=== PATIENT | male | born 1950 | race Caucasian/White ===

== ENCOUNTER → 2016-11-30 | Outpatient (CLI) | payer BC ==
--- NOTE | 2016-11-30 13:17 | US ---
EXAMINATION TYPE: US groin extremity RT DATE OF EXAM: 11/30/2016 1:00 PM COMPARISON: NONE CLINICAL HISTORY: K40.9 Uni lateral Hernia. Pt states rt groin/lower rt pelvic Scanned over the pt's area of concern, no abnormality noted by ultrasound. IMPRESSION: 1. No sonographic abnormality seen.
== END | disposition home or self-care (01) ==
LOC: RADUSWWP 12:47
PROVIDERS: ATTEND Family Medicine
DX: K40.90 Unilateral inguinal hernia, without obstruction or gangrene, not specified as recurrent (principal)

== ENCOUNTER → 2017-09-27 | Outpatient (CLI) | payer MEDICARE ==
--- NOTE | 2017-09-27 12:01 | US ---
EXAMINATION TYPE: US duplex aorta DATE OF EXAM: 09/27/2017 COMPARISON: NONE CLINICAL HISTORY: Z13.9 screening for disorder. no symptoms EXAM MEASUREMENTS: Abdominal Aorta: Proximal: 2.8 x 2.9cm Mid: 1.9 x 1.9cm Distal: 1.7 x 1.6cm Bifurcation: not seen due to gas Large body habitus and bowel gas limits exam. Atherosclerotic changes seen. IMPRESSION: Suboptimal study without greater than 3 cm aneurysm of abdominal aorta identified.
== END | disposition home or self-care (01) ==
LOC: RADUSWWP 09:03
PROVIDERS: ATTEND Family Medicine
DX: Z13.6 Encounter for screening for cardiovascular disorders (principal)
CPT/HCPCS: 93979

== ENCOUNTER 2018-04-22 13:26 | Observation (INO) | payer MEDICARE ==
[2018-04-22] MEDS ORDERED: methylPREDNISolone SOD SUCCI 125 MG/2 ML VIAL IV STA (14:10)
[2018-04-22] MEDS ORDERED: IPRATROPIUM-ALBUTEROL 3 ML NEB INHALATION STA (14:10)
[2018-04-22 14:17] LABS: Basophils % (A) 0 %; Eosinophils # (A) 0.4 k/uL (0-0.7); Eosinophils % (A) 5 %; HCT 45.6 % (39.0-53.0); HGB 14.9 gm/dL (13.0-17.5); Lymphocytes # (A) 1.5 k/uL (1.0-4.8); Lymphocytes % (A) 20 %; MCH 31.4 pg (25.0-35.0); MCHC 32.7 g/dL (31.0-37.0); MCV 96.2 fL (80.0-100.0); Mean Platelet Volume 6.9; Monocytes # (A) 0.4 k/uL (0-1.0); Monocytes % (A) 6 %; Neutrophils # (A) 5.3 k/uL (1.3-7.7); Neutrophils % (A) 69 %; Platelet Count 231 k/uL (150-450); RBC 4.74 m/uL (4.30-5.90); RDW 14.2 % (11.5-15.5); WBC 7.7 k/uL (3.8-10.6)
--- NOTE | 2018-04-22 14:27 | XR ---
EXAMINATION TYPE: XR chest 2V DATE OF EXAM: 04/22/2018 COMPARISON: NONE HISTORY: Difficulty breathing TECHNIQUE: Frontal and lateral views of the chest are obtained on 3 images. FINDINGS: There is no focal air space opacity, pleural effusion, or pneumothorax seen. The cardiac silhouette size is within normal limits. The osseous structures are intact. There are overlying car diac leads. Prominent lung volumes suggest COPD. Calcified aorticopulmonary window node is present co mpatible with old granulomatous disease. IMPRESSION: No acute cardiopulmonary process.
[2018-04-22 14:30] LABS: Partial Thromboplastin Time 24.3 sec (22.0-30.0); Prothrombin Time 10.2 sec (9.0-12.0)
--- NOTE | 2018-04-22 14:37 | ED ---
SOB HPI - General Chief Complaint: Shortness of Breath Stated Complaint: SOB Time Seen by Provider: 04/22/18 13:47 Source: patient, RN notes reviewed Mode of arrival: ambulatory Limitations: no limitations - History of Present Illness Initial Comments: 67-year-old male presents emergency Department from PCPs office chief complaint shortness of breath. Patient states that he quit smoking on Saturday and has had increased shortness of breath, cough. States cough is productive at time but mostly dry. He does have a history of COPD. Patient states he is tried treatments at home with no relief. Patient denies any chest pain, headache or dizziness. Patient has no fever no chills. - Related Data Home Medications Medication Instructions Recorded Confirmed Albuterol Inhaler [Ventolin Hfa 1 - 2 puff INHALATION RT-Q6H PRN 04/22/18 Inhaler] Albuterol Nebulized [Ventolin 2.5 mg INHALATION RT-Q4H PRN 04/22/18 04/22/18 Nebulized] Aspirin EC [Ecotrin] 325 mg PO HS 04/22/18 04/22/18 Metoprolol Tartrate [Lopressor] 50 mg PO HS 04/22/18 04/22/18 Pravastatin(Unknown) 1 tab PO HS 04/22/18 04/22/18 Tamsulosin [Flomax] 0.4 mg PO HS 04/22/18 04/22/18 Verapamil HCl [Verapamil ER] 240 mg PO HS 04/22/18 04/22/18 Allergies Allergy/AdvReac Type Severity Reaction Status Date / Time No Known Allergies Allergy Verified 04/22/18 14:07 Review of Systems ROS Statement: Those systems with pertinent positive or pertinent negative responses have been documented in the HPI. ROS Other: All systems not noted in ROS Statement are negative. Past Medical History Past Medical History: COPD, Hypertension History of Any Multi-Drug Resistant Organisms: None Reported Past Surgical History: No Surgical Hx Reported Past Psychological History: No Psychological Hx Reported Smoking Status: Current every day smoker Past Alcohol Use History: None Reported Past Drug Use History: None Reported General Exam Limitations: no limitations General appearance: alert, in no apparent distress Head exam: Present: atraumatic, normocephalic, normal inspection Eye exam: Present: normal appearance, PERRL, EOMI. Absent: scleral icterus, conjunctival injection, periorbital swelling ENT exam: Present: normal exam Respiratory exam: Present: wheezes (Diffuse). Absent: normal lung sounds bilaterally, respiratory distress, rales, rhonchi, stridor Cardiovascular Exam: Present: regular rate, normal rhythm, normal heart sounds. Absent: systolic murmur, diastolic murmur, rubs, gallop, clicks GI/Abdominal exam: Present: soft, normal bowel sounds. Absent: distended, tenderness, guarding, rebound, rigid Neurological exam: Present: alert, oriented X3, CN II-XII intact, reflexes normal. Absent: motor sensory deficit Skin exam: Present: warm, dry, intact, normal color. Absent: rash Course Vital Signs 04/22/18 04/22/18 04/22/18 13:30 14:31 14:44 Temperature 98.1 F Pulse Rate 81 74 82 Respiratory 22 16 18 Rate Blood Pressure 147/82 O2 Sat by Pulse 96 Oximetry Medical Decision Making - Lab Data Result diagrams: 04/22/18 14:01 04/22/18 14:01 Lab Results 04/22/18 04/22/18 04/22/18 Range/Units 14:01 14:01 14:01 WBC 7.7 (3.8-10.6) k/uL RBC 4.74 (4.30-5.90) m/uL Hgb 14.9 (13.0-17.5) gm/dL Hct 45.6 (39.0-53.0) % MCV 96.2 (80.0-100.0) fL MCH 31.4 (25.0-35.0) pg MCHC 32.7 (31.0-37.0) g/dL RDW 14.2 (11.5-15.5) % Plt Count 231 (150-450) k/uL Neutrophils % 69 % Lymphocytes % 20 % Monocytes % 6 % Eosinophils % 5 % Basophils % 0 % Neutrophils # 5.3 (1.3-7.7) k/uL Lymphocytes # 1.5 (1.0-4.8) k/uL Monocytes # 0.4 (0-1.0) k/uL Eosinophils # 0.4 (0-0.7) k/uL Basophils # 0.0 (0-0.2) k/uL PT (9.0-12.0) sec INR (<1.2) APTT (22.0-30.0) sec Sodium 140 (137-145) mmol/L Potassium 3.8 (3.5-5.1) mmol/L Chloride 106 (98-107) mmol/L Carbon Dioxide 25 (22-30) mmol/L Anion Gap 9 mmol/L BUN 12 (9-20) mg/dL Creatinine 0.90 (0.66-1.25) mg/dL Est GFR (CKD-EPI)AfAm >90 (>60 ml/min/1.73 sqM) Est GFR (CKD-EPI)NonAf 89 (>60 ml/min/1.73 sqM) Glucose 152 H (74-99) mg/dL Calcium 8.7 (8.4-10.2) mg/dL Magnesium 1.8 (1.6-2.3) mg/dL Total Bilirubin 0.7 (0.2-1.3) mg/dL AST 23 (17-59) U/L ALT 32 (21-72) U/L Alkaline Phosphatase 90 (38-126) U/L Total Creatine Kinase 65 (55-170) U/L NT-Pro-B Natriuret Pep pg/mL Total Protein 6.7 (6.3-8.2) g/dL Albumin 3.8 (3.5-5.0) g/dL 04/22/18 04/22/18 Range/Units 14:01 14:01 WBC (3.8-10.6) k/uL RBC (4.30-5.90) m/uL Hgb (13.0-17.5) gm/dL Hct (39.0-53.0) % MCV (80.0-100.0) fL MCH (25.0-35.0) pg MCHC (31.0-37.0) g/dL RDW (11.5-15.5) % Plt Count (150-450) k/uL Neutrophils % % Lymphocytes % % Monocytes % % Eosinophils % % Basophils % % Neutrophils # (1.3-7.7) k/uL Lymphocytes # (1.0-4.8) k/uL Monocytes # (0-1.0) k/uL Eosinophils # (0-0.7) k/uL Basophils # (0-0.2) k/uL PT 10.2 (9.0-12.0) sec INR 1.0 (<1.2) APTT 24.3 (22.0-30.0) sec Sodium (137-145) mmol/L Potassium (3.5-5.1) mmol/L Chloride (98-107) mmol/L Carbon Dioxide (22-30) mmol/L Anion Gap mmol/L BUN (9-20) mg/dL Creatinine (0.66-1.25) mg/dL Est GFR (CKD-EPI)AfAm (>60 ml/min/1.73 sqM) Est GFR (CKD-EPI)NonAf (>60 ml/min/1.73 sqM) Glucose (74-99) mg/dL Calcium (8.4-10.2) mg/dL Magnesium (1.6-2.3) mg/dL Total Bilirubin (0.2-1.3) mg/dL AST (17-59) U/L ALT (21-72) U/L Alkaline Phosphatase (38-126) U/L Total Creatine Kinase (55-170) U/L NT-Pro-B Natriuret Pep 111 pg/mL Total Protein (6.3-8.2) g/dL Albumin (3.5-5.0) g/dL Disposition Clinical Impression: COPD exacerbation Disposition: ADMITTED IP TO THIS HOSP Condition: Stable Referrals: Paul Davidson MD [Primary Care Provider] - 1-2 days
[2018-04-22 14:40] LABS: ALT 32 U/L (21-72); AST 23 U/L (17-59); Albumin 3.8 g/dL (3.5-5.0); Alkaline Phosphatase 90 U/L (38-126); Anion Gap 9 mmol/L; Blood Urea Nitrogen 12 mg/dL (9-20); Calcium 8.7 mg/dL (8.4-10.2); Carbon Dioxide 25 mmol/L (22-30); Chloride 106 mmol/L (98-107); Glucose 152 mg/dL (74-99); Magnesium 1.8 mg/dL (1.6-2.3); Potassium 3.8 mmol/L (3.5-5.1); Sodium 140 mmol/L (137-145); Total Bilirubin 0.7 mg/dL (0.2-1.3); Total Protein 6.7 g/dL (6.3-8.2)
[2018-04-22 14:41] LABS: Creatine Kinase 65 U/L (55-170)
[2018-04-22 14:52] LABS: Creatine Kinase MB 1.3 ng/mL (0.0-2.4); Troponin I <0.012 ng/mL (0.000-0.034)
[2018-04-22] MEDS: ALBUTEROL NEBULIZED 2.5 MG/3 ML INHALATION STA ×2 (15:37→15:39)
[2018-04-22] MEDS: IPRATROPIUM-ALBUTEROL 3 ML NEB INHALATION SCH ×2 (15:38→19:47)
[2018-04-22] MEDS: AZITHROMYCIN 500 MG TAB PO SCH (18:07)
[2018-04-22] MEDS: methylPREDNISolone SOD SUCCI 125 MG/2 ML VIAL IV SCH (18:07)
[2018-04-22] MEDS ORDERED: LORazepam 0.5 MG TAB PO PRN (18:27)
[2018-04-22] MEDS: NICOTINE 21MG/24HR PATCH TRANSDERM SCH (18:55)
[2018-04-22 20:40] LABS: Glucose,Whole Blood 139 mg/dL (75-99)
[2018-04-22] MEDS ORDERED: PRAVASTATIN PO SCH (21:00)
[2018-04-22] MEDS: INSULIN ASPART 100 UNIT/ML 1 ML 10 ML VIAL SQ SCH (21:28)
[2018-04-22] MEDS: ASPIRIN 325 MG TAB PO SCH (21:39)
[2018-04-22] MEDS: PRAVASTATIN SODIUM 20 MG TAB PO SCH (21:39)
[2018-04-22] MEDS: TAMSULOSIN 0.4 MG CAP.ER.24H PO SCH (21:39)
[2018-04-22] MEDS: VERAPAMIL SR 240 MG TABLET.ER PO SCH (21:39)
[2018-04-22] MEDS: METOPROLOL TARTRATE 50 MG TAB PO SCH (21:39)
[2018-04-23] MEDS: methylPREDNISolone SOD SUCCI 125 MG/2 ML VIAL IV SCH ×4 (00:19→19:24)
[2018-04-23] MEDS: ALBUTEROL NEBULIZED 2.5 MG/3 ML INHALATION PRN ×2 (01:55→04:34)
[2018-04-23 07:07] LABS: Glucose,Whole Blood 166 mg/dL (75-99)
[2018-04-23] MEDS: INSULIN ASPART 100 UNIT/ML 1 ML 10 ML VIAL SQ SCH ×4 (07:51→21:31)
[2018-04-23] MEDS: NICOTINE 21MG/24HR PATCH TRANSDERM SCH (07:51)
[2018-04-23] MEDS: IPRATROPIUM-ALBUTEROL 3 ML NEB INHALATION SCH ×4 (08:22→20:16)
[2018-04-23] MEDS: cefTRIAXone IN SWFI 1,000 MG/10 ML SYRINGE IVP SCH (09:30)
--- NOTE | 2018-04-23 11:47 | P.HPIM ---
History of Present Illness 67-year-old male presented to family physician with complaints of increasing shortness of breath. Patient states he had tried to discontinue smoking developed increasing shortness of breath Review of Systems Respiratory: Reports cough, Reports dyspnea Past Medical History Past Medical History: COPD, Hypertension Additional Past Medical History / Comment(s): PAST HX OF GOUT History of Any Multi-Drug Resistant Organisms: None Reported Past Surgical History: No Surgical Hx Reported Additional Past Surgical History / Comment(s): COLONOSCOPY Past Anesthesia/Blood Transfusion Reactions: No Reported Reaction Smoking Status: Current every day smoker - Past Family History Mother Family Medical History: Hypertension Father Family Medical History: No Reported History Additional Family Medical History / Comment(s): IN MVA 40 YEARS AGO Medications and Allergies Home Medications Medication Instructions Recorded Confirmed Type Albuterol Inhaler [Ventolin Hfa 1 - 2 puff INHALATION RT-Q6H PRN 04/22/18 History Inhaler] Albuterol Nebulized [Ventolin 2.5 mg INHALATION RT-Q4H PRN 04/22/18 04/22/18 History Nebulized] Aspirin EC [Ecotrin] 325 mg PO HS 04/22/18 04/22/18 History Metoprolol Tartrate [Lopressor] 50 mg PO HS 04/22/18 04/22/18 History Pravastatin(Unknown) 20 mg PO HS 04/22/18 04/22/18 History Tamsulosin [Flomax] 0.4 mg PO HS 04/22/18 04/22/18 History Verapamil HCl [Verapamil ER] 240 mg PO HS 04/22/18 04/22/18 History Allergies Allergy/AdvReac Type Severity Reaction Status Date / Time No Known Allergies Allergy Verified 04/22/18 14:07 Physical Exam Vitals: Vital Signs Temp Pulse Pulse Resp BP BP BP 04/23/18 08:33 75 04/23/18 08:23 70 04/23/18 06:25 98.1 F 65 20 139/75 04/23/18 04:45 72 04/23/18 04:34 68 04/23/18 02:06 76 04/23/18 01:57 72 04/22/18 23:00 97.9 F 70 20 153/79 04/22/18 19:57 68 16 04/22/18 19:47 66 18 04/22/18 18:06 97.9 F 71 18 155/84 04/22/18 17:48 97.5 F L 87 18 138/87 04/22/18 15:48 82 16 04/22/18 15:40 80 16 04/22/18 14:49 20 04/22/18 14:48 97.0 F L 71 20 144/79 04/22/18 14:44 82 18 04/22/18 14:31 74 16 04/22/18 13:30 98.1 F 81 22 147/82 Pulse Ox 04/23/18 08:33 04/23/18 08:23 04/23/18 06:25 92 L 04/23/18 04:45 04/23/18 04:34 04/23/18 02:06 04/23/18 01:57 04/22/18 23:00 94 L 04/22/18 19:57 04/22/18 19:47 04/22/18 18:06 92 L 04/22/18 17:48 99 04/22/18 15:48 04/22/18 15:40 04/22/18 14:49 04/22/18 14:48 93 L 04/22/18 14:44 04/22/18 14:31 04/22/18 13:30 96 Intake and Output 04/22/18 04/23/18 04/23/18 22:59 06:59 14:59 Intake Total 500 100 Balance 500 100 Intake: Oral 500 100 Other: # Voids 1 1 - Constitutional General appearance: mild distress - EENT Eyes: PERRLA Ears: bilateral: normal - Neck Neck: normal ROM - Respiratory Respiratory: bilateral: diminished - Cardiovascular Rhythm: regular - Gastrointestinal General gastrointestinal: soft - Integumentary Integumentary: normal - Neurologic Neurologic: CNII-XII intact - Musculoskeletal Musculoskeletal: gait normal - Psychiatric Psychiatric: A&O x's 3, appropriate affect, intact judgment & insight Results CBC & Chem 7: 04/22/18 14:01 04/22/18 14:01 Labs: Abnormal Lab Results - Last 24 Hours (Table) 04/22/18 04/22/18 04/23/18 Range/Units 14:01 20:27 06:51 Glucose 152 H (74-99) mg/dL POC Glucose (mg/dL) 139 H 166 H (75-99) mg/dL Chest x-ray: report reviewed Thrombosis Risk Factor Assmnt - Choose All That Apply Any of the Below Risk Factors Present?: Yes Each Factor Represents 1 point: Abnormal pulmonary function (COPD), Obesity ( BMI >25) Other Risk Factors: No Other congenital or acquired thrombophilia - If yes, enter type in comment: No Thrombosis Risk Factor Assessment Total Risk Factor Score: 2 Thrombosis Risk Factor Assessment Level: Low Risk Assessment and Plan Plan: Assessment COPD exacerbation History of hypertension Plan Pulmonology consult Patient on Zithromax Rocephin steroids bronchodilators
[2018-04-23 14:45] LABS: Hemoglobin A1C 5.8 % (4.0-6.0)
--- NOTE | 2018-04-23 14:55 | P.CNPUL ---
History of Present Illness Consult date: 04/23/18 Requesting physician: Paul Davidson Reason for consult: dyspnea Chief complaint: Shortness of breath History of present illness: This is a very pleasant 67-year-old gentleman who follows with Dr. Paul Davidson as his primary care physician. He has a history of chronic obstructive pulmonary disease utilizing Ventolin in the outpatient setting, chronic and ongoing tobacco dependence of 50+ years at greater than a pack per day, hypertension and hyperlipidemia, BPH. He states he had been doing fairly well until recently 04/20/2018 he developed significant shortness of breath cough and congestion. His cough has been dry and nonproductive. He's had some chest tightness and wheezing. No fever, chills or night sweats. He was seen and evaluated in the office and was referred here for ongoing treatment. He is seen today in consultation on the regular medical floor. He is awake and alert in no acute distress. He states he is feeling 100% better today as compared to yesterday. His chest x-ray shows evidence of COPD but no acute pulmonary process. He's been afebrile. No leukocytosis. He's been initiated on bronchodilators, IV Solu-Medrol, empiric antibiotics. Review of Systems Constitutional: Denies chills, Denies fever Eyes: denies blurred vision, denies decreased vision Ears: deny: decreased hearing Ears, nose, mouth and throat: Denies headache, Denies sore throat Cardiovascular: Reports dyspnea on exertion, Reports shortness of breath Respiratory: Reports congestion, Reports cough, Reports dyspnea, Reports wheezing Gastrointestinal: Denies abdominal pain, Denies diarrhea, Denies nausea, Denies vomiting Genitourinary: Reports as per HPI Musculoskeletal: Denies myalgias Integumentary: Denies pruritus, Denies rash Neurological: Denies numbness, Denies weakness Psychiatric: Denies anxiety, Denies depression Endocrine: Denies fatigue, Denies weight change Hematologic/Lymphatic: Reports as per HPI Allergic/Immunologic: Reports as per HPI Past Medical History Past Medical History: COPD, Hypertension Additional Past Medical History / Comment(s): PAST HX OF GOUT History of Any Multi-Drug Resistant Organisms: None Reported Past Surgical History: No Surgical Hx Reported Additional Past Surgical History / Comment(s): COLONOSCOPY Past Anesthesia/Blood Transfusion Reactions: No Reported Reaction Smoking Status: Current every day smoker - Past Family History Mother Family Medical History: Hypertension Father Family Medical History: No Reported History Additional Family Medical History / Comment(s): IN MVA 40 YEARS AGO Medications and Allergies Home Medications Medication Instructions Recorded Confirmed Type Albuterol Inhaler [Ventolin Hfa 1 - 2 puff INHALATION RT-Q6H PRN 04/22/18 History Inhaler] Albuterol Nebulized [Ventolin 2.5 mg INHALATION RT-Q4H PRN 04/22/18 04/22/18 History Nebulized] Aspirin EC [Ecotrin] 325 mg PO HS 04/22/18 04/22/18 History Metoprolol Tartrate [Lopressor] 50 mg PO HS 04/22/18 04/22/18 History Pravastatin(Unknown) 20 mg PO HS 04/22/18 04/22/18 History Tamsulosin [Flomax] 0.4 mg PO HS 04/22/18 04/22/18 History Verapamil HCl [Verapamil ER] 240 mg PO HS 04/22/18 04/22/18 History Allergies Allergy/AdvReac Type Severity Reaction Status Date / Time No Known Allergies Allergy Verified 04/22/18 14:07 Physical Exam Vitals: Vital Signs Temp Pulse Pulse Resp BP BP BP 04/23/18 14:16 98.2 F 76 18 138/70 04/23/18 12:14 77 04/23/18 12:00 74 04/23/18 08:33 75 04/23/18 08:23 70 04/23/18 06:25 98.1 F 65 20 139/75 04/23/18 04:45 72 04/23/18 04:34 68 04/23/18 02:06 76 04/23/18 01:57 72 04/22/18 23:00 97.9 F 70 20 153/79 04/22/18 19:57 68 16 04/22/18 19:47 66 18 04/22/18 18:06 97.9 F 71 18 155/84 04/22/18 17:48 97.5 F L 87 18 138/87 04/22/18 15:48 82 16 04/22/18 15:40 80 16 04/22/18 14:49 20 04/22/18 14:48 97.0 F L 71 20 144/79 08/21/18 14:44 82 18 Pulse Ox 04/23/18 14:16 91 L 04/23/18 12:14 04/23/18 12:00 04/23/18 08:33 04/23/18 08:23 04/23/18 06:25 92 L 04/23/18 04:45 04/23/18 04:34 04/23/18 02:06 04/23/18 01:57 04/22/18 23:00 94 L 04/22/18 19:57 04/22/18 19:47 04/22/18 18:06 92 L 04/22/18 17:48 99 04/22/18 15:48 04/22/18 15:40 04/22/18 14:49 04/22/18 14:48 93 L 04/22/18 14:44 Intake and Output 04/22/18 04/23/18 04/23/18 22:59 06:59 14:59 Intake Total 500 100 480 Balance 500 100 480 Intake: Oral 500 100 480 Other: # Voids 1 1 2 # Bowel Movements 0 GENERAL EXAM: Alert, active, comfortable in no apparent distress. HEAD: Normocephalic. EYES: Normal reaction of pupils, equal size. NOSE: Clear with pink turbinates. THROAT: No erythema or exudates. NECK: No masses, no JVD. CHEST: No chest wall deformity. LUNGS: Equal air entry with faint bilateral end expiratory wheeze. Diminished. CVS: S1 and S2 normal with no audible murmur, regular rhythm. ABDOMEN: No hepatosplenomegaly, normal bowel sounds, no guarding or rigidity. SPINE: No scoliosis or deformity SKIN: No rashes CENTRAL NERVOUS SYSTEM: No focal deficits, tone is normal in all 4 extremities. EXTREMITIES: There is no peripheral edema. No clubbing, no cyanosis. Peripheral pulses are intact. Results - Laboratory Findings CBC and BMP: 04/22/18 14:01 04/22/18 14:01 PT/INR, D-dimer PT 10.2 sec (9.0-12.0) 04/22/18 14:01 INR 1.0 (<1.2) 04/22/18 14:01 Abnormal lab findings: Abnormal Labs 04/22/18 04/22/18 04/23/18 14:01 20:27 06:51 Glucose 152 H POC Glucose (mg/dL) 139 H 166 H - Diagnostic Findings Chest x-ray: image reviewed Assessment and Plan Assessment: Impression: #1 Acute exacerbation of chronic obstructive pulmonary disease. #2 Chronic and ongoing tobacco dependence of greater than 50 years at 1 pack per day. #3 Hypertension. #4 Hyperlipidemia. #5 Benign prostatic hypertrophy. Plan: The patient was seen and evaluated by Dr. Vázquez. Chest x-ray and labs were reviewed. He is cleared for discharge from the pulmonary standpoint as the patient is quite anxious to go home and feels he is back to his baseline. He would benefit from inhaled corticosteroids and long-acting beta agonist perhaps Symbicort along with albuterol and a prednisone burst and taper starting at 40 mg for 4 days. Complete a course of empiric antibiotics in the form of azithromycin. The patient should be seen in our office in follow-up in 1-2 weeks' time. We'll perform full pulmonary function testing and evaluate the severity of his COPD. He is also educated regarding the importance of complete smoking cessation. NicoDerm patches in place. He is encouraged to call sooner with any recurrence of symptoms or other questions or concerns. I, the cosigning physician, performed a history & physical examination of the patient. Lungs sounds with faint end expiratory wheeze, diminished. Maintaining good O2 saturations in the 90s on room air. I discussed the assessment and plan of care with my nurse practitioner, Susana Guajardo. I attest to the above consultation as dictated by her. Time with Patient: Greater than 30
[2018-04-23 16:43] LABS: Glucose,Whole Blood 119 mg/dL (75-99)
[2018-04-23 17:11] LABS: Glucose,Whole Blood 193 mg/dL (75-99)
[2018-04-23] MEDS: AZITHROMYCIN 500 MG TAB PO SCH (19:23)
[2018-04-23 20:43] LABS: Glucose,Whole Blood 151 mg/dL (75-99)
[2018-04-23] MEDS: METOPROLOL TARTRATE 50 MG TAB PO SCH (21:22)
[2018-04-23] MEDS: ASPIRIN 325 MG TAB PO SCH (21:22)
[2018-04-23] MEDS: PRAVASTATIN SODIUM 20 MG TAB PO SCH (21:22)
[2018-04-23] MEDS: TAMSULOSIN 0.4 MG CAP.ER.24H PO SCH (21:23)
[2018-04-23] MEDS: VERAPAMIL SR 240 MG TABLET.ER PO SCH (21:24)
[2018-04-24] MEDS: methylPREDNISolone SOD SUCCI 125 MG/2 ML VIAL IV SCH ×3 (00:10→11:38)
[2018-04-24 06:53] LABS: Glucose,Whole Blood 127 mg/dL (75-99)
[2018-04-24 07:13] VITALS: BP 141/81; RESP 20; TEMP 98.1
[2018-04-24] MEDS: IPRATROPIUM-ALBUTEROL 3 ML NEB INHALATION SCH ×2 (08:08→11:31)
[2018-04-24] MEDS: cefTRIAXone IN SWFI 1,000 MG/10 ML SYRINGE IVP SCH (08:45)
[2018-04-24] MEDS: INSULIN ASPART 100 UNIT/ML 1 ML 10 ML VIAL SQ SCH ×2 (08:45→13:14)
[2018-04-24] MEDS: NICOTINE 21MG/24HR PATCH TRANSDERM SCH (08:45)
[2018-04-24 11:32] VITALS: PULSE 72
--- NOTE | 2018-04-24 11:48 | P.DS ---
Providers Date of admission: 04/22/18 15:02 Expected date of discharge: 04/24/18 Attending physician: Paul Davidson Consults: 04/23/18 08:55 Consult Physician Urgent Consulting Provider: Guido Vázquez Consult Reason/Comments: copd Do you want consulting provider notified?: Yes Primary care physician: Paul Davidson [facility] Hospital Course: 67-year-old male was sent to the emergency room from of family practice physician for complaints of increasing shortness of breath. Patient was treated with antibiotics steroids bronchodilators. Patient was evaluated by pulmonology. Patient is stabilized and cleared for discharge Assessment COPD exacerbation Hypertension Plan Symbicort and prednisone with Zithromax for discharge medications Follow-up with family physician and brand specialist Patient Condition at Discharge: Stable Plan - Discharge Summary Discharge Rx Participant: No New Discharge Prescriptions: New Azithromycin [Zithromax] 500 mg PO Q24H 3 Days #3 tab Budesonide/Formoterol Fumarate [Symbicort 80-4.5 Mcg Inhaler] 2 puff INHALATION BID #1 inhaler Nicotine 21Mg/24Hr Patch [Habitrol] 1 patch TRANSDERM DAILY 28 Days #28 patch predniSONE 0 mg PO DIRECTED #40 tab Continue Tamsulosin [Flomax] 0.4 mg PO HS Aspirin EC [Ecotrin] 325 mg PO HS Verapamil HCl [Verapamil ER] 240 mg PO HS Pravastatin(Unknown) 20 mg PO HS Metoprolol Tartrate [Lopressor] 50 mg PO HS Albuterol Inhaler [Ventolin Hfa Inhaler] 1 - 2 puff INHALATION RT-Q6H PRN PRN Reason: Shortness Of Breath Discontinued Albuterol Nebulized [Ventolin Nebulized] 2.5 mg INHALATION RT-Q4H PRN PRN Reason: Shortness Of Breath Discharge Medication List Albuterol Inhaler [Ventolin Hfa Inhaler] 1 - 2 puff INHALATION RT-Q6H PRN [History] Aspirin EC [Ecotrin] 325 mg PO HS 04/22/18 [History] Metoprolol Tartrate [Lopressor] 50 mg PO HS 04/22/18 [History] Pravastatin(Unknown) 20 mg PO HS 04/22/18 [History] Tamsulosin [Flomax] 0.4 mg PO HS 04/22/18 [History] Verapamil HCl [Verapamil ER] 240 mg PO HS 04/22/18 [History] Azithromycin [Zithromax] 500 mg PO Q24H 3 Days #3 tab 04/24/18 [Rx] Budesonide/Formoterol Fumarate [Symbicort 80-4.5 Mcg Inhaler] 2 puff INHALATION BID #1 inhaler 04/24/18 [Rx] Nicotine 21Mg/24Hr Patch [Habitrol] 1 patch TRANSDERM DAILY 28 Days #28 patch [Rx] predniSONE 0 mg PO DIRECTED #40 tab 04/24/18 [Rx] Follow up Appointment(s)/Referral(s): Paul Davidson MD [Primary Care Provider] - 1-2 days
[2018-04-24 11:54] LABS: Glucose,Whole Blood 155 mg/dL (75-99)
== END 2018-04-24 16:04 | disposition home or self-care (01) ==
LOC: EC 13:26 → 5MS5E 15:02 → 4MS4W 17:14
PROVIDERS: ADMIT Family Medicine; ATTEND Family Medicine
DX: J44.1 Chronic obstructive pulmonary disease with (acute) exacerbation (principal); I10 Essential (primary) hypertension; M10.9 Gout, unspecified; F17.210 Nicotine dependence, cigarettes, uncomplicated; N40.0 Benign prostatic hyperplasia without lower urinary tract symptoms; E78.5 Hyperlipidemia, unspecified; E66.9 Obesity, unspecified; Z68.31 Body mass index [BMI] 31.0-31.9, adult; Z79.82 Long term (current) use of aspirin; Z79.899 Other long term (current) drug therapy; Z82.49 Family history of ischemic heart disease and other diseases of the circulatory system
CPT/HCPCS: 99285 ×2; 96374 ×2; 96376 ×3; 96375; 36415; 94640 ×5; 93005; 83880; 80053; 82550; 82553; 83735; 84484; 85025; 85610; 85730; 87040; 83036; 71046; G0378 ×4; S4990 ×3; J2930 ×3; J0696 ×2

== ENCOUNTER → 2018-05-29 | Outpatient (CLI) | payer MEDICARE ==
--- NOTE | 2018-05-29 12:28 | XR ---
EXAMINATION TYPE: XR chest 2V DATE OF EXAM: 05/29/2018 COMPARISON: None HISTORY: 67-year-old male with COPD and increased shortness of breath TECHNIQUE: Frontal and lateral views FINDINGS: Heart normal size. Aorta and pulmonary vasculature within normal limits. Calcified AP window lymph no pa suggest prior granulomatous disease. Nodularity in the bilateral lower lung asymmetrical suggesti ng nipple shadow. Mild hyperinflation. No consolidation or pleural effusion. IMPRESSION: Possible underlying COPD. Prior granulomatous disease. No acute process seen.
== END ==
LOC: RADXRMAIN 06:43
PROVIDERS: ATTEND Physician Assistant
DX: J44.9 Chronic obstructive pulmonary disease, unspecified (principal)
CPT/HCPCS: 71046

== ENCOUNTER 2018-06-20 16:09 | Inpatient (IN) | payer MEDICARE ==
--- NOTE | 2018-06-20 16:44 | ED ---
SOB HPI - General Chief Complaint: Shortness of Breath Stated Complaint: SOB Time Seen by Provider: 06/20/18 16:42 Source: patient, RN notes reviewed, old records reviewed Mode of arrival: ambulatory Limitations: no limitations - History of Present Illness Initial Comments: This is a 67-year-old male the ER for evaluation. I'll patient resents today for evaluation of shortness of breath. History of COPD. No chest pain no fevers positive cough or congestion no recent travel history no sick contacts MD Complaint: shortness of breath, cough -: days(s) (2) Severity: severe Consistency: constant Improves With: rest, bronchodilators Worsens With: exertion, coughing Known History Of: COPD Associated Symptoms: cough Treatments Prior to Arrival: none - Related Data Home Medications Medication Instructions Recorded Confirmed Albuterol Inhaler [Ventolin Hfa 1 - 2 puff INHALATION RT-Q6H PRN 04/22/18 Inhaler] Aspirin EC [Ecotrin] 325 mg PO HS 04/22/18 06/20/18 Metoprolol Tartrate [Lopressor] 50 mg PO HS 04/22/18 06/20/18 Tamsulosin [Flomax] 0.4 mg PO HS 04/22/18 06/20/18 Verapamil HCl [Verapamil ER] 240 mg PO HS 04/22/18 06/20/18 Albuterol Nebulized [Ventolin 2.5 mg INHALATION RT-Q4H PRN 06/20/18 06/20/18 Nebulized] Budesonide/Formoterol Fumarate 2 puff INHALATION RT-BID 06/20/18 06/20/18 [Symbicort 80-4.5 Mcg Inhaler] Pravastatin Sodium [Pravachol] 20 mg PO DAILY 06/20/18 06/20/18 Allergies Allergy/AdvReac Type Severity Reaction Status Date / Time No Known Allergies Allergy Verified 06/20/18 16:53 Review of Systems ROS Statement: Those systems with pertinent positive or pertinent negative responses have been documented in the HPI. ROS Other: All systems not noted in ROS Statement are negative. Past Medical History Past Medical History: COPD, Hypertension Additional Past Medical History / Comment(s): PAST HX OF GOUT History of Any Multi-Drug Resistant Organisms: None Reported Past Surgical History: No Surgical Hx Reported Additional Past Surgical History / Comment(s): COLONOSCOPY Past Anesthesia/Blood Transfusion Reactions: No Reported Reaction Past Psychological History: No Psychological Hx Reported Smoking Status: Current every day smoker Past Alcohol Use History: None Reported Past Drug Use History: None Reported - Past Family History Mother Family Medical History: Hypertension Father Family Medical History: No Reported History Additional Family Medical History / Comment(s): IN MVA 40 YEARS AGO General Exam Limitations: no limitations General appearance: alert, anxious, in distress Head exam: Present: atraumatic, normocephalic, normal inspection Eye exam: Present: normal appearance, PERRL, EOMI. Absent: scleral icterus, conjunctival injection, periorbital swelling ENT exam: Present: normal exam, mucous membranes moist Neck exam: Present: normal inspection. Absent: tenderness, meningismus, lymphadenopathy Respiratory exam: Present: normal lung sounds bilaterally, respiratory distress , wheezes, accessory muscle use, decreased breath sounds, prolonged expiratory. Absent: rales, rhonchi, stridor Cardiovascular Exam: Present: regular rate, normal rhythm, normal heart sounds. Absent: systolic murmur, diastolic murmur, rubs, gallop, clicks GI/Abdominal exam: Present: soft, normal bowel sounds. Absent: distended, tenderness, guarding, rebound, rigid Extremities exam: Present: normal inspection, full ROM, normal capillary refill. Absent: tenderness, pedal edema, joint swelling, calf tenderness Back exam: Present: normal inspection Neurological exam: Present: alert, oriented X3, CN II-XII intact Psychiatric exam: Present: normal affect, normal mood Skin exam: Present: warm, dry, intact, normal color. Absent: rash Course Vital Signs 06/20/18 06/20/18 06/20/18 16:13 16:49 16:57 Temperature 97.6 F Pulse Rate 95 93 87 Respiratory 22 Rate Blood Pressure 137/91 O2 Sat by Pulse 96 94 L Oximetry 06/20/18 06/20/18 06/20/18 17:00 17:11 17:30 Temperature Pulse Rate 86 89 90 Respiratory Rate Blood Pressure 144/124 142/99 O2 Sat by Pulse 97 96 Oximetry - Reevaluation(s) Reevaluation #1: 06/20/18 18:30 Medical records thoroughly reviewed Reevaluation #2: 06/20/18 18:30 No improvement after initial breathing treatment Medical Decision Making - Medical Decision Making 67 male the ER for evaluation significant shortness breath cough congestion positive COPD exacerbation, patient with no improvement despite breathing treatments here in the ER will admit for breathing treatments IV hydration and monitoring of pulse ox - Lab Data Result diagrams: 06/20/18 16:35 06/20/18 16:35 Lab Results 06/20/18 06/20/18 06/20/18 Range/Units 16:35 16:35 16:35 WBC 10.7 H (3.8-10.6) k/uL RBC 4.85 (4.30-5.90) m/uL Hgb 15.7 (13.0-17.5) gm/dL Hct 47.0 (39.0-53.0) % MCV 96.8 (80.0-100.0) fL MCH 32.4 (25.0-35.0) pg MCHC 33.5 (31.0-37.0) g/dL RDW 14.4 (11.5-15.5) % Plt Count 252 (150-450) k/uL Neutrophils % 71 % Lymphocytes % 17 % Monocytes % 7 % Eosinophils % 3 % Basophils % 0 % Neutrophils # 7.6 (1.3-7.7) k/uL Lymphocytes # 1.8 (1.0-4.8) k/uL Monocytes # 0.7 (0-1.0) k/uL Eosinophils # 0.3 (0-0.7) k/uL Basophils # 0.0 (0-0.2) k/uL PT (9.0-12.0) sec INR (<1.2) APTT (22.0-30.0) sec Sodium 140 (137-145) mmol/L Potassium 4.2 (3.5-5.1) mmol/L Chloride 104 (98-107) mmol/L Carbon Dioxide 25 (22-30) mmol/L Anion Gap 11 mmol/L BUN 17 (9-20) mg/dL Creatinine 1.06 (0.66-1.25) mg/dL Est GFR (CKD-EPI)AfAm 85 (>60 ml/min/1.73 sqM) Est GFR (CKD-EPI)NonAf 73 (>60 ml/min/1.73 sqM) Glucose 96 (74-99) mg/dL Calcium 9.2 (8.4-10.2) mg/dL Total Bilirubin 0.8 (0.2-1.3) mg/dL AST 18 (17-59) U/L ALT 24 (21-72) U/L Alkaline Phosphatase 95 (38-126) U/L Total Creatine Kinase 76 (55-170) U/L CK-MB (CK-2) 1.2 (0.0-2.4) ng/mL CK-MB (CK-2) Rel Index 1.6 Troponin I <0.012 (0.000-0.034) ng/mL Total Protein 6.9 (6.3-8.2) g/dL Albumin 4.0 (3.5-5.0) g/dL 06/20/18 Range/Units 16:35 WBC (3.8-10.6) k/uL RBC (4.30-5.90) m/uL Hgb (13.0-17.5) gm/dL Hct (39.0-53.0) % MCV (80.0-100.0) fL MCH (25.0-35.0) pg MCHC (31.0-37.0) g/dL RDW (11.5-15.5) % Plt Count (150-450) k/uL Neutrophils % % Lymphocytes % % Monocytes % % Eosinophils % % Basophils % % Neutrophils # (1.3-7.7) k/uL Lymphocytes # (1.0-4.8) k/uL Monocytes # (0-1.0) k/uL Eosinophils # (0-0.7) k/uL Basophils # (0-0.2) k/uL PT 10.1 (9.0-12.0) sec INR 1.0 (<1.2) APTT 23.1 (22.0-30.0) sec Sodium (137-145) mmol/L Potassium (3.5-5.1) mmol/L Chloride (98-107) mmol/L Carbon Dioxide (22-30) mmol/L Anion Gap mmol/L BUN (9-20) mg/dL Creatinine (0.66-1.25) mg/dL Est GFR (CKD-EPI)AfAm (>60 ml/min/1.73 sqM) Est GFR (CKD-EPI)NonAf (>60 ml/min/1.73 sqM) Glucose (74-99) mg/dL Calcium (8.4-10.2) mg/dL Total Bilirubin (0.2-1.3) mg/dL AST (17-59) U/L ALT (21-72) U/L Alkaline Phosphatase (38-126) U/L Total Creatine Kinase (55-170) U/L CK-MB (CK-2) (0.0-2.4) ng/mL CK-MB (CK-2) Rel Index Troponin I (0.000-0.034) ng/mL Total Protein (6.3-8.2) g/dL Albumin (3.5-5.0) g/dL - Radiology Data Radiology results: report reviewed (Chest x-rays negative for acute disease), image reviewed Disposition Clinical Impression: COPD exacerbation, Acute exacerbation of chronic obstructive airways disease Disposition: ADMITTED IP TO THIS HOSP Condition: Fair Is patient prescribed a controlled substance at d/c from ED?: No Referrals: Paul Davidson MD [Primary Care Provider] - 1-2 days
[2018-06-20] MEDS ORDERED: IPRATROPIUM-ALBUTEROL 3 ML NEB INHALATION STA (16:52)
[2018-06-20 16:55] LABS: Basophils % (A) 0 %; Eosinophils # (A) 0.3 k/uL (0-0.7); Eosinophils % (A) 3 %; HGB 15.7 gm/dL (13.0-17.5); Lymphocytes # (A) 1.8 k/uL (1.0-4.8); Lymphocytes % (A) 17 %; MCH 32.4 pg (25.0-35.0); MCHC 33.5 g/dL (31.0-37.0); MCV 96.8 fL (80.0-100.0); Mean Platelet Volume 6.9; Monocytes # (A) 0.7 k/uL (0-1.0); Monocytes % (A) 7 %; Neutrophils # (A) 7.6 k/uL (1.3-7.7); Neutrophils % (A) 71 %; Platelet Count 252 k/uL (150-450); RBC 4.85 m/uL (4.30-5.90); RDW 14.4 % (11.5-15.5); WBC 10.7 k/uL (3.8-10.6)
[2018-06-20 17:00] LABS: Partial Thromboplastin Time 23.1 sec (22.0-30.0); Prothrombin Time 10.1 sec (9.0-12.0)
[2018-06-20 17:01] LABS: Calcium 9.2 mg/dL (8.4-10.2); Potassium 4.2 mmol/L (3.5-5.1); Total Bilirubin 0.8 mg/dL (0.2-1.3); Total Protein 6.9 g/dL (6.3-8.2)
[2018-06-20 17:10] LABS: Creatine Kinase 76 U/L (55-170)
[2018-06-20 17:24] LABS: Creatine Kinase MB 1.2 ng/mL (0.0-2.4); Troponin I <0.012 ng/mL (0.000-0.034)
--- NOTE | 2018-06-20 17:44 | XR ---
EXAMINATION TYPE: XR chest 2V DATE OF EXAM: 06/20/2018 COMPARISON: 05/22/1718 HISTORY: Short of breath TECHNIQUE: Frontal and lateral views of the chest are obtained. FINDINGS: Heart and mediastinum are normal. Lungs are clear. Diaphragm is normal. Bony thorax is int act. There are chest leads. There is calcified granuloma in the mediastinum. IMPRESSION: No cardiopulmonary disease. No change.
[2018-06-20] MEDS ORDERED: methylPREDNISolone SOD SUCCI 125 MG/2 ML VIAL IV STA (18:28)
[2018-06-20] MEDS: SODIUM CHLORIDE 0.9% 1,000 ML IV SCH (18:36)
[2018-06-20] MEDS ORDERED: IPRATROPIUM 0.5 MG/2.5 ML NEBU INHALATION STA (19:29)
[2018-06-20] MEDS ORDERED: ALBUTEROL NEBULIZED 2.5 MG/3 ML INHALATION STA (19:29)
[2018-06-20] MEDS ORDERED: IPRATROPIUM-ALBUTEROL 3 ML NEB INHALATION SCH (20:00)
[2018-06-20] MEDS ORDERED: LORazepam 2 MG/ML INJ IV STA (20:50)
[2018-06-20] MEDS ORDERED: ACETAMINOPHEN TAB 500 MG TAB PO PRN (21:28)
[2018-06-20] MEDS ORDERED: ALPRAZolam 0.25 MG TAB PO PRN (21:28)
[2018-06-20] MEDS ORDERED: TEMAZEPAM 15 MG CAP PO PRN (21:28)
[2018-06-20] MEDS ORDERED: HYDROcodone/APAP 5-325MG 1 EACH TAB PO PRN (21:28)
[2018-06-20] MEDS ORDERED: LEVOFLOXACIN 500MG-D5W PMX 500 MG in DEXTROSE/WATER 1 100ML.BAG IVPB SCH (21:30)
--- NOTE | 2018-06-20 23:31 | HP ---
HISTORY AND PHYSICAL DATE OF SERVICE: 06/20/2018. I am covering for Dr. Davidson. CHIEF COMPLAINT: Shortness of breath. HISTORY OF PRESENT ILLNESS: This 67-year-old gentleman with a past medical history of multiple medical problems including COPD, hypertension, history of gout, being followed by Dr. Paul Davidson in the outpatient setting, has been complaining of significant shortness of breath over the past several days. Because increased shortness of breath, the patient came to [facility] and was admitted for further evaluation and treatment. The patient needs to be on a partial non-rebreather. After steroids and updrafts the patient is feeling slightly better at this time. There is no history of any fevers or rigors. No history of headache, loss of consciousness, seizures. PAST MEDICAL HISTORY: COPD, hypertension, history of gout. HOME MEDICATIONS: 1. Pravastatin 20 mg daily. 2. Symbicort 4.5, two puffs b.i.d. 3. Ventolin 2.5 every 4 hours p.r.n. 4. Ventolin HFA p.r.n. 5. Verapamil ER 240 mg at bedtime. 6. Flomax 0.4 at bedtime. 7. Lopressor 50 mg at bedtime. 8. Ecotrin 325 mg p.o. daily. ALLERGIES: None. FAMILY HISTORY: History of hypertension in the family. SOCIAL HISTORY: No history of smoking currently. No history of alcohol intake. REVIEW OF SYSTEMS: ENT: No diminished hearing or vision. CARDIOVASCULAR: No angina. RESPIRATORY: As mentioned earlier. GI: No nausea or vomiting. : No dysuria. NERVOUS SYSTEM: No numbness or weakness. ALLERGY: None. MUSCULOSKELETAL: As mentioned. HEMATOLOGY: None. ONCOLOGY: None. ENDOCRINE: No history of diabetes or hypothyroidism. CONSTITUTIONAL: None. DERMATOLOGY: Negative. RHEUMATOLOGY: Negative. PSYCHIATRY: As mentioned earlier. PHYSICAL EXAMINATION: Alert, oriented x2. Pulse is 90, blood pressure is 142/99, respirations 18, temp is normal. Pulse ox 96% on non-rebreather mask. HEENT: Conjunctivae normal. Oral mucosa moist. NECK: No jugular venous distention. No lymph node enlargement. CARDIOVASCULAR: S1 and S2 muffled. LUNGS: Breath sounds diminished at the bases. Bilateral scattered rhonchi and crackles. Expiratory wheezing also present. ABDOMEN: Soft, nontender. LEGS: No edema. NERVOUS SYSTEM: Higher functions as mentioned earlier. Moves all four limbs. No lymph nodes palpable in the neck, groin or axillae. SKIN: No rash. LABS: CBC and BMP within normal limits. ASSESSMENT: 1. Chronic obstructive pulmonary disease acute exacerbation with acute purulent tracheobronchitis with acute hypoxic respiratory failure. 2. Hypertension. 3. History of gout. 4. History of continued ongoing nicotine dependence. RECOMMENDATIONS: In this 67-year-old gentleman who presented with multiple complex medical issues, we will monitor the patient closely, continue the current management and symptomatic treatment. Otherwise at this time, bronchodilators and steroids. Pulmonary consultation. Prognosis guarded because of multiple complex medical issues. Further recommendations to follow. See orders for further details. MMODL / IJN: [id number] /
[2018-06-20] MEDS: methylPREDNISolone SOD SUCCI 125 MG/2 ML VIAL IV SCH (23:46)
[2018-06-21] MEDS ORDERED: IPRATROPIUM 0.5 MG/2.5 ML NEBU INHALATION PRN (01:56)
[2018-06-21] MEDS ORDERED: IPRATROPIUM-ALBUTEROL 3 ML NEB INHALATION PRN (02:24)
[2018-06-21] MEDS: methylPREDNISolone SOD SUCCI 125 MG/2 ML VIAL IV SCH ×3 (06:08→17:07)
[2018-06-21 07:48] LABS: Basophils % (A) 0 %; Eosinophils # (A) 0.1 k/uL (0-0.7); Eosinophils % (A) 1 %; HCT 45.3 % (39.0-53.0); HGB 14.7 gm/dL (13.0-17.5); Lymphocytes # (A) 0.7 k/uL (1.0-4.8); Lymphocytes % (A) 8 %; MCH 31.6 pg (25.0-35.0); MCHC 32.4 g/dL (31.0-37.0); MCV 97.4 fL (80.0-100.0); Mean Platelet Volume 6.4; Monocytes # (A) 0.1 k/uL (0-1.0); Monocytes % (A) 1 %; Neutrophils # (A) 7.3 k/uL (1.3-7.7); Neutrophils % (A) 89 %; Platelet Count 282 k/uL (150-450); RBC 4.65 m/uL (4.30-5.90); RDW 14.4 % (11.5-15.5); WBC 8.2 k/uL (3.8-10.6)
[2018-06-21 08:12] LABS: Anion Gap 9 mmol/L; Blood Urea Nitrogen 20 mg/dL (9-20); Carbon Dioxide 26 mmol/L (22-30); Chloride 104 mmol/L (98-107); Glucose 157 mg/dL (74-99); Potassium 4.7 mmol/L (3.5-5.1); Sodium 139 mmol/L (137-145)
[2018-06-21 08:17] LABS: Calcium 9.4 mg/dL (8.4-10.2)
[2018-06-21] MEDS: PRAVASTATIN SODIUM 20 MG TAB PO SCH (08:28)
[2018-06-21] MEDS: HEPARIN SODIUM,PORCINE 5,000 UNIT/ML 1 ML VIAL SQ SCH ×2 (08:28→21:12)
[2018-06-21] MEDS: SODIUM CHLORIDE 0.9% 1,000 ML IV SCH ×2 (08:28→10:51)
[2018-06-21] MEDS: PANTOPRAZOLE 40 MG TABLET PO SCH (08:28)
[2018-06-21] MEDS: NICOTINE 14MG/24HR PATCH TRANSDERM SCH (08:28)
[2018-06-21] MEDS: BUDESONIDE 1 MG/2 ML NEBU INHALATION SCH ×2 (08:34→20:09)
[2018-06-21] MEDS: IPRATROPIUM-ALBUTEROL 3 ML NEB INHALATION SCH ×4 (08:34→20:09)
[2018-06-21] MEDS: FORMOTEROL FUMARATE 20 MCG/2 ML NEBU INHALATION SCH ×2 (08:34→20:17)
--- NOTE | 2018-06-21 13:37 | P.CNPUL ---
History of Present Illness Consult date: 06/21/18 Requesting physician: Mago Coronel Reason for consult: dyspnea, COPD Chief complaint: Shortness of breath, cough, congestion History of present illness: This is a very pleasant 67-year-old gentleman who follows with Dr. Paul Davidson as his primary care physician. He has a history of hypertension, hyperlipidemia , benign prostatic hypertrophy.. He also has a history of chronic and ongoing tobacco dependence and significant chronic obstructive pulmonary disease and follows with Dr. Vázquez in our office for the same. He is maintained on Symbicort and Ventolin. Yesterday he developed significant shortness of breath and dyspnea on minimal exertion on the dry nonproductive cough. He denied any fever, chills or night sweats. No chest pain or palpitations. Chest x-ray shows no acute cardiopulmonary disease. He is seen today in consultation on the selective care unit. He is awake and alert in no acute distress. He is quite dyspneic on conversation on minimal exertion. He is maintaining O2 saturations in the low 90s on 2 L/m per nasal cannula. He is afebrile. Hemodynamically stable. White count 8.2. Hemoglobin 14.7. INR 0.95. He has been initiated on DuoNeb inhalations 4 times a day and when necessary, Pulmicort and Perforomist inhalations twice a day, IV Solu-Medrol. He is doing slightly better today as compared to yesterday. Not quite back to his baseline. Review of Systems Constitutional: Reports fatigue, Reports weakness Eyes: denies blurred vision, denies decreased vision Ears: deny: decreased hearing Ears, nose, mouth and throat: Denies headache, Denies sore throat Cardiovascular: Reports dyspnea on exertion, Reports shortness of breath Respiratory: Reports cough, Reports dyspnea, Reports wheezing Gastrointestinal: Denies abdominal pain, Denies diarrhea, Denies nausea, Denies vomiting Genitourinary: Reports as per HPI Musculoskeletal: Denies myalgias Integumentary: Denies pruritus, Denies rash Neurological: Denies numbness, Denies weakness Psychiatric: Denies anxiety, Denies depression Endocrine: Denies fatigue, Denies weight change Hematologic/Lymphatic: Reports as per HPI Allergic/Immunologic: Reports as per HPI Past Medical History Past Medical History: COPD, Hypertension Additional Past Medical History / Comment(s): PAST HX OF GOUT History of Any Multi-Drug Resistant Organisms: None Reported Past Surgical History: No Surgical Hx Reported Additional Past Surgical History / Comment(s): COLONOSCOPY Past Anesthesia/Blood Transfusion Reactions: No Reported Reaction Past Psychological History: No Psychological Hx Reported Smoking Status: Current every day smoker Past Alcohol Use History: None Reported Additional Past Alcohol Use History / Comment(s): STARTED SMOING CIGARETTS AT AGE 13 1.5 PPD BUT SINCE SATURDAY ONLY HAD 4 CIG.ALSO HAS CHEWED TOBACCOA FOR LAST 30 YEARS Past Drug Use History: None Reported - Past Family History Mother Family Medical History: Hypertension Father Family Medical History: No Reported History Additional Family Medical History / Comment(s): IN MVA 40 YEARS AGO Medications and Allergies Home Medications Medication Instructions Recorded Confirmed Type Albuterol Inhaler [Ventolin Hfa 1 - 2 puff INHALATION RT-Q6H PRN 04/22/18 History Inhaler] Aspirin EC [Ecotrin] 325 mg PO HS 04/22/18 06/20/18 History Metoprolol Tartrate [Lopressor] 50 mg PO HS 04/22/18 06/20/18 History Tamsulosin [Flomax] 0.4 mg PO HS 04/22/18 06/20/18 History Verapamil HCl [Verapamil ER] 240 mg PO HS 04/22/18 06/20/18 History Albuterol Nebulized [Ventolin 2.5 mg INHALATION RT-Q4H PRN 06/20/18 06/20/18 History Nebulized] Budesonide/Formoterol Fumarate 2 puff INHALATION RT-BID 06/20/18 06/20/18 History [Symbicort 80-4.5 Mcg Inhaler] Pravastatin Sodium [Pravachol] 20 mg PO DAILY 06/20/18 06/20/18 History Allergies Allergy/AdvReac Type Severity Reaction Status Date / Time No Known Allergies Allergy Verified 06/20/18 16:53 Physical Exam Vitals: Vital Signs Temp Pulse Pulse Resp BP BP Pulse Ox 06/21/18 12:20 98.1 F 89 18 133/77 93 L 06/21/18 12:10 90 06/21/18 12:00 92 18 06/21/18 08:53 95 06/21/18 08:43 95 06/21/18 08:34 87 18 97 06/21/18 05:45 97.6 F 94 16 145/89 96 06/21/18 02:45 100 06/21/18 02:32 96 06/20/18 22:23 97 06/20/18 22:09 97.8 F 81 20 136/83 99 06/20/18 22:00 97 06/20/18 21:00 98 166/135 98 06/20/18 20:31 99 06/20/18 20:30 169/120 97 06/20/18 20:25 104 H 06/20/18 20:03 100 06/20/18 20:00 140/110 98 06/20/18 19:30 140/110 06/20/18 19:00 93 149/66 92 L 06/20/18 17:30 90 142/99 96 06/20/18 17:11 89 06/20/18 17:00 86 144/124 97 06/20/18 16:57 87 06/20/18 16:49 93 94 L 06/20/18 16:13 97.6 F 95 22 137/91 96 Intake and Output 06/20/18 06/21/18 06/21/18 22:59 06:59 14:59 Intake Total 150 800 Balance 150 800 Intake: Amount of Fluid Infused ( 50 ml) Intake, IV Titration 800 Amount Levofloxacin 500Mg-D5w 100 Pmx 500 mg In Dextrose/ Water 1 100ml.bag @ 100 mls/hr IVPB Q24H [facility] Rx#: [id number] Sodium Chloride 0.9% 1, 700 000 ml @ 100 mls/hr IV . Q10H [facility] Rx#:[id number] Oral 100 Other: Voiding Method Toilet Toilet Urinal # Voids 2 Weight 96.5 kg - Constitutional General appearance: average body habitus, mild distress - EENT Eyes: EOMI, PERRLA ENT: hearing grossly normal Ears: bilateral: normal - Neck Neck: normal ROM Carotids: bilateral: upstroke normal Thyroid: bilateral: normal size - Respiratory Respiratory: bilateral: diminished, wheezing - Cardiovascular Rhythm: regular Heart sounds: normal: S1, S2 - Gastrointestinal General gastrointestinal: normal bowel sounds - Genitourinary No urinary complaints - Integumentary Integumentary: normal turgor - Neurologic Neurologic: CNII-XII intact - Musculoskeletal Musculoskeletal: generalized weakness - Psychiatric Psychiatric: A&O x's 3, appropriate affect, intact judgment & insight Results - Laboratory Findings CBC and BMP: 06/21/18 07:32 06/21/18 07:32 PT/INR, D-dimer PT 10.1 sec (9.0-12.0) 06/20/18 16:35 INR 1.0 (<1.2) 06/20/18 16:35 Abnormal lab findings: Abnormal Labs 06/20/18 06/21/18 06/21/18 16:35 07:32 07:32 WBC 10.7 H Lymphocytes # 0.7 L Glucose 157 H - Diagnostic Findings Chest x-ray: image reviewed (No acute cardio pulmonary process) Assessment and Plan Assessment: Impression: #1 Acute exacerbation of chronic obstructive pulmonary disease. #2 Chronic and ongoing tobacco dependence. #3 Hypertension. #4 Hyperlipidemia. #5 Benign prostatic hypertrophy. #6 History of gout. Plan: The patient was seen and evaluated by Dr. Quezada. Chest x-ray and labs were reviewed. We'll continue his treatment for his COPD exacerbation including DuoNeb inhalations, Pulmicort and Perforomist inhalations, IV Solu-Medrol. We' ll utilize empiric antibiotics in the form of azithromycin for 5 days only. We will increase his activity as tolerated. He is educated regarding the importance of complete smoking cessation. A NicoDerm patch will be offered. We' ll continue to follow and make further recommendations based on his clinical status. I, the cosigning physician, performed a history & physical examination of the patient. Lungs sounds with bilateral wheezing, diminished. Maintaining good O2 saturations in the 90s on 2 L/m per nasal cannula. I discussed the assessment and plan of care with my nurse practitioner, Susana Guajardo. I attest to the above consultation as dictated by her. Time with Patient: Greater than 30
[2018-06-21] MEDS: VERAPAMIL SR 240 MG TABLET.ER PO SCH (21:12)
[2018-06-21] MEDS: METOPROLOL TARTRATE 50 MG TAB PO SCH (21:12)
[2018-06-21] MEDS: TAMSULOSIN 0.4 MG CAP.ER.24H PO SCH (21:12)
[2018-06-21] MEDS: ASPIRIN 325 MG TAB PO SCH (21:12)
--- NOTE | 2018-06-21 22:07 | PN ---
PROGRESS NOTE DATE OF SERVICE: 06/21/2018. I am covering for Dr. Davidson. HISTORY: This 67-year-old gentleman who was admitted with COPD exacerbation, acute purulent tracheobronchitis, is feeling slightly better. No chest pain. No palpitations. The patient is on IV steroids. EXAM: Alert and oriented x4. Pulse 89, blood pressure 130/70, respirations 18, temperature 98.2, pulse ox 98% on 2 L. HEENT: Conjunctivae normal. Oral mucosa moist. NECK: No jugular venous distention. No lymph node enlargement. CARDIOVASCULAR: S1 and S2 muffled. LUNGS: Breath sounds diminished at the bases. Bilateral scattered rhonchi and crackles. Expiratory wheezing also present. ABDOMEN: Soft, nontender. EXTREMITIES: Legs no edema. NERVOUS SYSTEM: No focal deficits. LABS: WBC 8, hemoglobin is 14.7. ASSESSMENT: 1. Chronic obstructive pulmonary disease acute exacerbation with acute purulent tracheobronchitis with acute hypoxic respiratory failure. 2. Hypertension. 3. History of gout. 4. History of continued ongoing nicotine dependence. 5. Benign prostatic hypertrophy. RECOMMENDATIONS: Continue current management and symptomatic treatment. We will monitor the patient closely with Pulmonary. Continue with IV steroids. Continue with bronchodilators. Guarded prognosis because of multiple complex medical issues. Further recommendations to follow. MMODL / IJN: [id number] /
[2018-06-22] MEDS: methylPREDNISolone SOD SUCCI 125 MG/2 ML VIAL IV SCH ×5 (00:26→23:38)
[2018-06-22] MEDS: SODIUM CHLORIDE 0.9% 1,000 ML IV SCH ×3 (00:28→16:17)
[2018-06-22] MEDS: NICOTINE 14MG/24HR PATCH TRANSDERM SCH (07:12)
[2018-06-22] MEDS: PRAVASTATIN SODIUM 20 MG TAB PO SCH (07:27)
[2018-06-22] MEDS: PANTOPRAZOLE 40 MG TABLET PO SCH (07:27)
[2018-06-22] MEDS: HEPARIN SODIUM,PORCINE 5,000 UNIT/ML 1 ML VIAL SQ SCH ×2 (07:27→21:52)
[2018-06-22] MEDS: AZITHROMYCIN 500 MG TAB PO SCH (07:27)
[2018-06-22] MEDS: BUDESONIDE 1 MG/2 ML NEBU INHALATION SCH ×2 (09:18→19:26)
[2018-06-22] MEDS: IPRATROPIUM-ALBUTEROL 3 ML NEB INHALATION SCH ×4 (09:18→19:26)
[2018-06-22] MEDS: FORMOTEROL FUMARATE 20 MCG/2 ML NEBU INHALATION SCH ×2 (09:18→19:26)
--- NOTE | 2018-06-22 10:01 | P.PN ---
Subjective Progress Note Date: 06/22/18 Principal diagnosis: Acute exacerbation of chronic obstructive pulmonary disease This is a very pleasant 67-year-old gentleman who follows with Dr. Paul Davidson as his primary care physician. He has a history of hypertension, hyperlipidemia , benign prostatic hypertrophy.. He also has a history of chronic and ongoing tobacco dependence and significant chronic obstructive pulmonary disease and follows with Dr. Vázquez in our office for the same. He is maintained on Symbicort and Ventolin. Yesterday he developed significant shortness of breath and dyspnea on minimal exertion on the dry nonproductive cough. He denied any fever, chills or night sweats. No chest pain or palpitations. Chest x-ray shows no acute cardiopulmonary disease. He is seen today in consultation on the selective care unit. He is awake and alert in no acute distress. He is quite dyspneic on conversation on minimal exertion. He is maintaining O2 saturations in the low 90s on 2 L/m per nasal cannula. He is afebrile. Hemodynamically stable. White count 8.2. Hemoglobin 14.7. INR 0.95. He has been initiated on DuoNeb inhalations 4 times a day and when necessary, Pulmicort and Perforomist inhalations twice a day, IV Solu-Medrol. He is doing slightly better today as compared to yesterday. Not quite back to his baseline. On 06/22/2017 patient seen in follow-up on 3 surgical floor. Still complaining of shortness of breath, even at rest, lung sounds are quite bronchospastic. 2 L per nasal cannula, his pulse ox is 92%, patient is afebrile. More dyspneic with any exertion. No new lab work today, chest x-rays, chest x-ray on admission showed no cardiopulmonary process. Afebrile. Patient is on IV steroids, Levaquin, Perforomist, empiric antibiotics, and nebulized bronchodilators. Objective - Vital Signs Vital signs: Vital Signs Temp 97.9 F 06/22/18 05:00 Pulse 89 06/22/18 09:19 Resp 20 06/22/18 05:00 BP 117/58 06/22/18 05:00 Pulse Ox 92 L 06/22/18 05:00 Intake & Output 06/21/18 06/22/18 06/22/18 18:59 06:59 18:59 Intake Total 800 1200 Output Total 2 Balance 798 1200 Intake: Intake, IV Titration 800 1200 Amount Sodium Chloride 0.9% 1, 800 1200 000 ml @ 100 mls/hr IV . Q10H [facility] Rx#:[id number] Output: Urine 2 Other: Voiding Method Toilet Toilet Toilet Urinal Urinal - Exam - Constitutional General appearance: average body habitus, mild distress - EENT Eyes: EOMI, PERRLA ENT: hearing grossly normal Ears: bilateral: normal - Neck Neck: normal ROM Carotids: bilateral: upstroke normal Thyroid: bilateral: normal size - Respiratory Respiratory: bilateral: diminished, wheezing - Cardiovascular Rhythm: regular Heart sounds: normal: S1, S2 - Gastrointestinal General gastrointestinal: normal bowel sounds - Genitourinary No urinary complaints - Integumentary Integumentary: normal turgor - Neurologic Neurologic: CNII-XII intact - Musculoskeletal Musculoskeletal: generalized weakness - Psychiatric Psychiatric: A&O x's 3, appropriate affect, intact judgment & insight - Labs CBC & Chem 7: 06/21/18 07:32 06/21/18 07:32 Assessment and Plan Plan: #1 Acute exacerbation of chronic obstructive pulmonary disease. #2 Chronic and ongoing tobacco dependence. #3 Hypertension. #4 Hyperlipidemia. #5 Benign prostatic hypertrophy. #6 History of gout. Plan: Continue current medical treatment, continue with bronchodilators, IV steroids, empiric antibiotics, Pulmicort and Perforomist. NicoDerm patch, smoking cessation was encouraged. We'll continue to follow I performed a history & physical examination of the patient and discussed their management with my nurse practitioner, Swati Draper. I reviewed the nurse practitioner's note and agree with the documented findings and plan of care. Lung sounds are positive for diffuse wheezes throughout the lung jurado. The findings and the impression was discussed with the patient. I attest to the documentation by the nurse practitioner. Time with Patient: Less than 30
[2018-06-22 10:05] LABS: Calcium 8.9 mg/dL (8.4-10.2); Potassium 4.8 mmol/L (3.5-5.1)
[2018-06-22 10:23] LABS: Basophils % (A) 0 %; Eosinophils % (A) 0 %; HCT 42.9 % (39.0-53.0); HGB 13.5 gm/dL (13.0-17.5); Lymphocytes # (A) 0.7 k/uL (1.0-4.8); Lymphocytes % (A) 4 %; MCH 31.7 pg (25.0-35.0); MCHC 31.5 g/dL (31.0-37.0); MCV 100.8 fL (80.0-100.0); Macrocytosis Slight; Mean Platelet Volume 6.9; Monocytes # (A) 0.4 k/uL (0-1.0); Monocytes % (A) 2 %; Neutrophils # (A) 18.7 k/uL (1.3-7.7); Neutrophils % (A) 94 %; Platelet Count 265 k/uL (150-450); RBC 4.25 m/uL (4.30-5.90); RDW 14.7 % (11.5-15.5); WBC 19.8 k/uL (3.8-10.6)
--- NOTE | 2018-06-22 20:15 | PN ---
PROGRESS NOTE DATE OF SERVICE: 06/22/2018 I am covering for Dr. Davidson. This 67-year-old gentleman with COPD acute exacerbation, still is having significant shortness of breath. The patient is on IV steroids and bronchodilators also. Dr. Quezada is following the patient. No chest pain. No palpitations. No fever. EXAM: Alert and oriented x3. Pulse 56, blood pressure 130/60, respirations 22, temperature 98 degrees, pulse ox 94% on room air. HEENT: Conjunctivae normal. Oral mucosa moist. Neck is no jugular venous distention. No carotid bruit. No lymph node enlargement. CARDIOVASCULAR: S1, S2 muffled. RESPIRATORY: Breath sounds diminished in the bases. Bilateral scattered rhonchi and crackles. ABDOMEN: Soft, nontender. No mass palpable. LEGS: No edema. NERVOUS SYSTEM: No system focal. LABS: WBC 18.8, hemoglobin 13.5, glucose 181. ASSESSMENT: 1. Chronic obstructive pulmonary disease acute exacerbation with acute purulent tracheobronchitis with acute hypoxic respiratory failure. 2. Hypertension. 3. History of gout. 4. History of continued ongoing nicotine dependence. 5. Benign prostatic hypertrophy. RECOMMENDATIONS AND DISCUSSION: I recommend to continue current medications and continue symptomatic treatment. Otherwise, continue with the bronchodilators. Cut down the steroids. Closely follow with Pulmonary. Dr. Davidson will follow. Guarded prognosis. MMODL / IJN: [id number] /
[2018-06-22] MEDS: TAMSULOSIN 0.4 MG CAP.ER.24H PO SCH (21:52)
[2018-06-22] MEDS: VERAPAMIL SR 240 MG TABLET.ER PO SCH (21:52)
[2018-06-22] MEDS: METOPROLOL TARTRATE 50 MG TAB PO SCH (21:52)
[2018-06-22] MEDS: ASPIRIN 325 MG TAB PO SCH (21:52)
[2018-06-23] MEDS: SODIUM CHLORIDE 0.9% 1,000 ML IV SCH ×2 (02:03→12:05)
[2018-06-23] MEDS: methylPREDNISolone SOD SUCCI 125 MG/2 ML VIAL IV SCH ×4 (06:22→23:59)
[2018-06-23 07:37] LABS: Glucose,Whole Blood 137 mg/dL (75-99)
[2018-06-23 07:47] LABS: Basophils % (A) 0 %; Eosinophils # (A) 0.1 k/uL (0-0.7); Eosinophils % (A) 1 %; HCT 41.5 % (39.0-53.0); HGB 13.3 gm/dL (13.0-17.5); Lymphocytes # (A) 0.9 k/uL (1.0-4.8); Lymphocytes % (A) 6 %; MCH 31.6 pg (25.0-35.0); MCHC 31.9 g/dL (31.0-37.0); MCV 98.9 fL (80.0-100.0); Mean Platelet Volume 7.6; Monocytes # (A) 0.4 k/uL (0-1.0); Monocytes % (A) 3 %; Neutrophils # (A) 14.2 k/uL (1.3-7.7); Neutrophils % (A) 91 %; Platelet Count 257 k/uL (150-450); RDW 14.6 % (11.5-15.5); WBC 15.7 k/uL (3.8-10.6)
[2018-06-23] MEDS: IPRATROPIUM-ALBUTEROL 3 ML NEB INHALATION SCH ×4 (07:55→20:58)
[2018-06-23] MEDS: FORMOTEROL FUMARATE 20 MCG/2 ML NEBU INHALATION SCH ×2 (07:55→20:57)
[2018-06-23] MEDS: BUDESONIDE 1 MG/2 ML NEBU INHALATION SCH ×2 (08:00→20:58)
[2018-06-23 08:08] LABS: Calcium 8.7 mg/dL (8.4-10.2); Potassium 5.1 mmol/L (3.5-5.1)
[2018-06-23] MEDS: NICOTINE 14MG/24HR PATCH TRANSDERM SCH (08:20)
[2018-06-23] MEDS: HEPARIN SODIUM,PORCINE 5,000 UNIT/ML 1 ML VIAL SQ SCH ×2 (08:20→20:29)
[2018-06-23] MEDS: PANTOPRAZOLE 40 MG TABLET PO SCH (08:20)
[2018-06-23] MEDS: AZITHROMYCIN 500 MG TAB PO SCH (08:20)
[2018-06-23] MEDS: PRAVASTATIN SODIUM 20 MG TAB PO SCH (08:21)
[2018-06-23 11:06] LABS: Glucose,Whole Blood 135 mg/dL (75-99)
--- NOTE | 2018-06-23 11:08 | P.PN ---
Subjective Patient sitting up in bed states he's had some improvement. Lung sounds continue be managed Objective - Vital Signs Vital signs: Vital Signs Temp 97.4 F L 06/23/18 05:30 Pulse 72 06/23/18 08:10 Resp 18 06/23/18 05:30 BP 106/55 06/23/18 05:30 Pulse Ox 93 L 06/23/18 05:30 Intake & Output 06/22/18 06/23/18 06/23/18 18:59 06:59 18:59 Intake Total 800 900 Output Total 600 Balance 200 900 Intake: Intake, IV Titration 800 900 Amount Sodium Chloride 0.9% 1, 800 900 000 ml @ 100 mls/hr IV . Q10H [facility] Rx#:[id number] Output: Urine 600 Other: Voiding Method Toilet Toilet Urinal Urinal # Voids 1 - Constitutional General appearance: Present: mild distress, obese - EENT Eyes: Present: PERRLA Ears: bilateral: normal - Neck Neck: Present: normal ROM - Respiratory Respiratory: bilateral: diminished - Cardiovascular Rhythm: regular - Gastrointestinal General gastrointestinal: Present: soft - Integumentary Integumentary: Present: normal - Neurologic Neurologic: Present: CNII-XII intact - Musculoskeletal Musculoskeletal: Present: gait normal - Psychiatric Psychiatric: Present: appropriate affect, intact judgment & insight - Labs CBC & Chem 7: 06/23/18 07:02 06/23/18 07:02 Labs: Abnormal Lab Results - Last 24 Hours (Table) 06/23/18 06/23/18 06/23/18 Range/Units 07:02 07:02 07:36 WBC 15.7 H (3.8-10.6) k/uL RBC 4.20 L (4.30-5.90) m/uL Neutrophils # 14.2 H (1.3-7.7) k/uL Lymphocytes # 0.9 L (1.0-4.8) k/uL Chloride 109 H (98-107) mmol/L BUN 28 H (9-20) mg/dL Glucose 133 H (74-99) mg/dL POC Glucose (mg/dL) 137 H (75-99) mg/dL - Imaging and Cardiology Chest x-ray: report reviewed Assessment and Plan Plan: Assessment Chronic obstructive pulmonary disease with acute exacerbation purulent tracheobronchitis with acute hypoxic respiratory failure History of hypertension Hyperlipidemia History of gout Nicotine dependence BPH Plan Continue consultation with pulmonology patient is on steroids bronchodilators and Levaquin
--- NOTE | 2018-06-23 15:22 | P.PN ---
Subjective Progress Note Date: 06/23/18 Principal diagnosis: Acute exacerbation of chronic obstructive pulmonary disease This is a very pleasant 67-year-old gentleman who follows with Dr. Paul Davidson as his primary care physician. He has a history of hypertension, hyperlipidemia , benign prostatic hypertrophy.. He also has a history of chronic and ongoing tobacco dependence and significant chronic obstructive pulmonary disease and follows with Dr. Vázquez in our office for the same. He is maintained on Symbicort and Ventolin. Yesterday he developed significant shortness of breath and dyspnea on minimal exertion on the dry nonproductive cough. He denied any fever, chills or night sweats. No chest pain or palpitations. Chest x-ray shows no acute cardiopulmonary disease. He is seen today in consultation on the selective care unit. He is awake and alert in no acute distress. He is quite dyspneic on conversation on minimal exertion. He is maintaining O2 saturations in the low 90s on 2 L/m per nasal cannula. He is afebrile. Hemodynamically stable. White count 8.2. Hemoglobin 14.7. INR 0.95. He has been initiated on DuoNeb inhalations 4 times a day and when necessary, Pulmicort and Perforomist inhalations twice a day, IV Solu-Medrol. He is doing slightly better today as compared to yesterday. Not quite back to his baseline. On 06/22/2017 patient seen in follow-up on 3 surgical floor. Still complaining of shortness of breath, even at rest, lung sounds are quite bronchospastic. 2 L per nasal cannula, his pulse ox is 92%, patient is afebrile. More dyspneic with any exertion. No new lab work today, chest x-rays, chest x-ray on admission showed no cardiopulmonary process. Afebrile. Patient is on IV steroids, Levaquin, Perforomist, empiric antibiotics, and nebulized bronchodilators. On 06/23/2018 he seen again in follow-up on medical surgical floor. Reports breathing easier today, occasional cough. Remains on 2 L per nasal cannula, and his pulse ox is 94%, room air pulse ox was 88%, lung sounds are diminished, with expiratory wheezes. Patient does have exertional dyspnea, today's labs have been reviewed, WBC is coming down to 15.7, hemoglobin is 13.3. Electrolytes are unremarkable with the exception of chloride is 109. BUN is 20 , creatinine is 1.01. Chest x-ray today, patient remains on empiric antibiotics , Pulmicort, Perforomist, nebulized bronchodilator's, and IV steroids. He is improving. Objective - Vital Signs Vital signs: Vital Signs Temp 98.0 F 06/23/18 12:40 Pulse 52 L 06/23/18 12:40 Resp 22 06/23/18 12:40 BP 147/70 06/23/18 12:40 Pulse Ox 94 L 06/23/18 12:40 Intake & Output 06/22/18 06/23/18 06/23/18 18:59 06:59 18:59 Intake Total 800 900 Output Total 600 Balance 200 900 Intake: Intake, IV Titration 800 900 Amount Sodium Chloride 0.9% 1, 800 900 000 ml @ 100 mls/hr IV . Q10H [facility] Rx#:[id number] Output: Urine 600 Other: Voiding Method Toilet Toilet Urinal Urinal # Voids 1 - Exam - Constitutional General appearance: average body habitus, mild distress - EENT Eyes: EOMI, PERRLA ENT: hearing grossly normal Ears: bilateral: normal - Neck Neck: normal ROM Carotids: bilateral: upstroke normal Thyroid: bilateral: normal size - Respiratory Respiratory: bilateral: diminished, wheezing - Cardiovascular Rhythm: regular Heart sounds: normal: S1, S2 - Gastrointestinal General gastrointestinal: normal bowel sounds - Genitourinary No urinary complaints - Integumentary Integumentary: normal turgor - Neurologic Neurologic: CNII-XII intact - Musculoskeletal Musculoskeletal: generalized weakness - Psychiatric Psychiatric: A&O x's 3, appropriate affect, intact judgment & insight - Labs CBC & Chem 7: 06/23/18 07:02 06/23/18 07:02 Labs: Abnormal Lab Results - Last 24 Hours (Table) 06/23/18 06/23/18 06/23/18 Range/Units 07:02 07:02 07:36 WBC 15.7 H (3.8-10.6) k/uL RBC 4.20 L (4.30-5.90) m/uL Neutrophils # 14.2 H (1.3-7.7) k/uL Lymphocytes # 0.9 L (1.0-4.8) k/uL Chloride 109 H (98-107) mmol/L BUN 28 H (9-20) mg/dL Glucose 133 H (74-99) mg/dL POC Glucose (mg/dL) 137 H (75-99) mg/dL 06/23/18 Range/Units 11:04 WBC (3.8-10.6) k/uL RBC (4.30-5.90) m/uL Neutrophils # (1.3-7.7) k/uL Lymphocytes # (1.0-4.8) k/uL Chloride (98-107) mmol/L BUN (9-20) mg/dL Glucose (74-99) mg/dL POC Glucose (mg/dL) 135 H (75-99) mg/dL Assessment and Plan Plan: #1 Acute exacerbation of chronic obstructive pulmonary disease. #2 Chronic and ongoing tobacco dependence. #3 Hypertension. #4 Hyperlipidemia. #5 Benign prostatic hypertrophy. #6 History of gout. Plan: Continue current medical treatment, IV steroids, empiric antibiotics, and he lies bronchodilators, Pulmicort and Perforomist. Patient is slowly improving, increase activity as tolerated. Will reevaluate patient in the 24 hours, possible discharge home tomorrow, if there is continuous improvement. I performed a history & physical examination of the patient and discussed their management with my nurse practitioner, Swati Draper. I reviewed the nurse practitioner's note and agree with the documented findings and plan of care. Lung sounds are diminished, with some expiratory wheezes. The findings and the impression was discussed with the patient. I attest to the documentation by the nurse practitioner. Time with Patient: Less than 30
[2018-06-23 17:24] LABS: Glucose,Whole Blood 131 mg/dL (75-99)
[2018-06-23 19:58] LABS: Glucose,Whole Blood 209 mg/dL (75-99)
[2018-06-23] MEDS: VERAPAMIL SR 240 MG TABLET.ER PO SCH (20:29)
[2018-06-23] MEDS: ASPIRIN 325 MG TAB PO SCH (20:29)
[2018-06-23] MEDS: TAMSULOSIN 0.4 MG CAP.ER.24H PO SCH (20:30)
[2018-06-23] MEDS: METOPROLOL TARTRATE 50 MG TAB PO SCH (20:30)
[2018-06-24] MEDS: methylPREDNISolone SOD SUCCI 125 MG/2 ML VIAL IV SCH ×2 (06:00→11:16)
[2018-06-24 06:57] LABS: Glucose,Whole Blood 125 mg/dL (75-99)
[2018-06-24 08:19] LABS: Basophils % (A) 0 %; Eosinophils # (A) 0.1 k/uL (0-0.7); Eosinophils % (A) 1 %; HCT 43.7 % (39.0-53.0); HGB 13.8 gm/dL (13.0-17.5); Lymphocytes # (A) 0.8 k/uL (1.0-4.8); Lymphocytes % (A) 6 %; MCH 30.9 pg (25.0-35.0); MCHC 31.5 g/dL (31.0-37.0); MCV 98.1 fL (80.0-100.0); Mean Platelet Volume 7.2; Monocytes # (A) 0.4 k/uL (0-1.0); Monocytes % (A) 3 %; Neutrophils # (A) 11.3 k/uL (1.3-7.7); Neutrophils % (A) 89 %; Platelet Count 255 k/uL (150-450); RBC 4.46 m/uL (4.30-5.90); RDW 14.4 % (11.5-15.5); WBC 12.6 k/uL (3.8-10.6)
[2018-06-24] MEDS: BUDESONIDE 1 MG/2 ML NEBU INHALATION SCH (08:31)
[2018-06-24] MEDS: FORMOTEROL FUMARATE 20 MCG/2 ML NEBU INHALATION SCH (08:32)
[2018-06-24] MEDS: IPRATROPIUM-ALBUTEROL 3 ML NEB INHALATION SCH ×2 (08:32→12:09)
[2018-06-24 08:38] LABS: Anion Gap 6 mmol/L; Blood Urea Nitrogen 24 mg/dL (9-20); Calcium 8.7 mg/dL (8.4-10.2); Carbon Dioxide 26 mmol/L (22-30); Chloride 106 mmol/L (98-107); Glucose 148 mg/dL (74-99); Potassium 4.4 mmol/L (3.5-5.1); Sodium 138 mmol/L (137-145)
[2018-06-24] MEDS: NICOTINE 14MG/24HR PATCH TRANSDERM SCH (08:59)
[2018-06-24] MEDS: HEPARIN SODIUM,PORCINE 5,000 UNIT/ML 1 ML VIAL SQ SCH (09:03)
[2018-06-24] MEDS: AZITHROMYCIN 500 MG TAB PO SCH (09:03)
[2018-06-24] MEDS: PANTOPRAZOLE 40 MG TABLET PO SCH (09:03)
[2018-06-24] MEDS: PRAVASTATIN SODIUM 20 MG TAB PO SCH (09:04)
--- NOTE | 2018-06-24 10:59 | P.DS ---
Providers Date of admission: 06/23/18 13:01 Attending physician: Palu Davidson Consults: 06/20/18 18:28 Consult Physician Routine Consulting Provider: Guido Vázquez Consult Reason/Comments: nora Do you want consulting provider notified?: Yes 06/20/18 21:29 Consult Physician Routine Consulting Provider: Brennon Quezada Consult Reason/Comments: copd Do you want consulting provider notified?: Yes Primary care physician: Paul Davidson [facility] Course: 67-year-old male presented the emergency room with complaints of increasing shortness of breath. Patient was evaluated by pulmonology and stabilized and steroids Levaquin and bronchodilators. Patient was up ambulating the grier states some improvement. Awaiting clearance from pulmonology for discharge Assessment Chronic obstructive pulmonary disease acute exacerbation with acute purulent tracheobronchitis with acute hypoxic respiratory failure Hypertension Hyperlipidemia History of gout History of nicotine dependence BPH Plan Awaiting clearance from pulmonology expect discharge today Patient Condition at Discharge: Fair Plan - Discharge Summary Discharge Rx Participant: No New Discharge Prescriptions: No Action Tamsulosin [Flomax] 0.4 mg PO HS Aspirin EC [Ecotrin] 325 mg PO HS Verapamil HCl [Verapamil ER] 240 mg PO HS Metoprolol Tartrate [Lopressor] 50 mg PO HS Albuterol Inhaler [Ventolin Hfa Inhaler] 1 - 2 puff INHALATION RT-Q6H PRN PRN Reason: Shortness Of Breath Albuterol Nebulized [Ventolin Nebulized] 2.5 mg INHALATION RT-Q4H PRN PRN Reason: Shortness Of Breath Budesonide/Formoterol Fumarate [Symbicort 80-4.5 Mcg Inhaler] 2 puff INHALATION RT-BID Pravastatin Sodium [Pravachol] 20 mg PO DAILY Discharge Medication List Albuterol Inhaler [Ventolin Hfa Inhaler] 1 - 2 puff INHALATION RT-Q6H PRN [History] Aspirin EC [Ecotrin] 325 mg PO HS 04/22/18 [History] Metoprolol Tartrate [Lopressor] 50 mg PO HS 04/22/18 [History] Tamsulosin [Flomax] 0.4 mg PO HS 04/22/18 [History] Verapamil HCl [Verapamil ER] 240 mg PO HS 04/22/18 [History] Albuterol Nebulized [Ventolin Nebulized] 2.5 mg INHALATION RT-Q4H PRN 06/20/18 [ History] Budesonide/Formoterol Fumarate [Symbicort 80-4.5 Mcg Inhaler] 2 puff INHALATION RT-BID 06/20/18 [History] Pravastatin Sodium [Pravachol] 20 mg PO DAILY 06/20/18 [History] Follow up Appointment(s)/Referral(s): Paul Davidson MD [Primary Care Provider] - 1-2 days
[2018-06-24 11:06] LABS: Glucose,Whole Blood 120 mg/dL (75-99)
[2018-06-24 12:01] VITALS: BP 169/77; RESP 17; TEMP 98.2
[2018-06-24 12:10] VITALS: PULSE 84
--- NOTE | 2018-06-24 12:48 | P.PN ---
Subjective Progress Note Date: 06/24/18 Principal diagnosis: Acute exacerbation of chronic obstructive pulmonary disease This is a very pleasant 67-year-old gentleman who follows with Dr. Paul Davidson as his primary care physician. He has a history of hypertension, hyperlipidemia , benign prostatic hypertrophy.. He also has a history of chronic and ongoing tobacco dependence and significant chronic obstructive pulmonary disease and follows with Dr. Vázquez in our office for the same. He is maintained on Symbicort and Ventolin. Yesterday he developed significant shortness of breath and dyspnea on minimal exertion on the dry nonproductive cough. He denied any fever, chills or night sweats. No chest pain or palpitations. Chest x-ray shows no acute cardiopulmonary disease. He is seen today in consultation on the selective care unit. He is awake and alert in no acute distress. He is quite dyspneic on conversation on minimal exertion. He is maintaining O2 saturations in the low 90s on 2 L/m per nasal cannula. He is afebrile. Hemodynamically stable. White count 8.2. Hemoglobin 14.7. INR 0.95. He has been initiated on DuoNeb inhalations 4 times a day and when necessary, Pulmicort and Perforomist inhalations twice a day, IV Solu-Medrol. He is doing slightly better today as compared to yesterday. Not quite back to his baseline. On 06/22/2017 patient seen in follow-up on 3 surgical floor. Still complaining of shortness of breath, even at rest, lung sounds are quite bronchospastic. 2 L per nasal cannula, his pulse ox is 92%, patient is afebrile. More dyspneic with any exertion. No new lab work today, chest x-rays, chest x-ray on admission showed no cardiopulmonary process. Afebrile. Patient is on IV steroids, Levaquin, Perforomist, empiric antibiotics, and nebulized bronchodilators. On 06/23/2018 he seen again in follow-up on medical surgical floor. Reports breathing easier today, occasional cough. Remains on 2 L per nasal cannula, and his pulse ox is 94%, room air pulse ox was 88%, lung sounds are diminished, with expiratory wheezes. Patient does have exertional dyspnea, today's labs have been reviewed, WBC is coming down to 15.7, hemoglobin is 13.3. Electrolytes are unremarkable with the exception of chloride is 109. BUN is 20 , creatinine is 1.01. Chest x-ray today, patient remains on empiric antibiotics , Pulmicort, Perforomist, nebulized bronchodilator's, and IV steroids. He is improving. On 06/24/2018 patient seen in follow-up. Doing well, breathing easier. Room air pulse ox was 92%, down to 89% with exercise, no need for home oxygen, patient is afebrile, vital signs are stable, lung sounds are diminished, with only a few wheezes, overall continues to improve. No acute events overnight, patient was treated with the empiric antibiotics, nebulized bronchodilators, IV steroids. He has been get not and ambulating, tolerating activity fairly well. From pulmonary perspective patient is stable for discharge home today. Objective - Vital Signs Vital signs: Vital Signs Temp 98.2 F 06/24/18 12:01 Pulse 84 06/24/18 12:18 Resp 17 06/24/18 12:01 BP 169/77 06/24/18 12:01 Pulse Ox 90 L 06/24/18 12:01 Intake & Output 06/23/18 06/24/18 06/24/18 18:59 06:59 18:59 Other: Voiding Method Toilet Toilet Urinal # Voids 2 1 - Exam - Constitutional General appearance: average body habitus, mild distress - EENT Eyes: EOMI, PERRLA ENT: hearing grossly normal Ears: bilateral: normal - Neck Neck: normal ROM Carotids: bilateral: upstroke normal Thyroid: bilateral: normal size - Respiratory Respiratory: bilateral: diminished, minimal wheezing - Cardiovascular Rhythm: regular Heart sounds: normal: S1, S2 - Gastrointestinal General gastrointestinal: normal bowel sounds - Genitourinary No urinary complaints - Integumentary Integumentary: normal turgor - Neurologic Neurologic: CNII-XII intact - Musculoskeletal Musculoskeletal: generalized weakness - Psychiatric Psychiatric: A&O x's 3, appropriate affect, intact judgment & insight - Labs CBC & Chem 7: 06/24/18 07:53 06/24/18 07:53 Labs: Abnormal Lab Results - Last 24 Hours (Table) 06/23/18 06/23/18 06/24/18 Range/Units 17:23 19:57 06:56 WBC (3.8-10.6) k/uL Neutrophils # (1.3-7.7) k/uL Lymphocytes # (1.0-4.8) k/uL BUN (9-20) mg/dL Glucose (74-99) mg/dL POC Glucose (mg/dL) 131 H 209 H 125 H (75-99) mg/dL 06/24/18 06/24/18 06/24/18 Range/Units 07:53 07:53 11:05 WBC 12.6 H (3.8-10.6) k/uL Neutrophils # 11.3 H (1.3-7.7) k/uL Lymphocytes # 0.8 L (1.0-4.8) k/uL BUN 24 H (9-20) mg/dL Glucose 148 H (74-99) mg/dL POC Glucose (mg/dL) 120 H (75-99) mg/dL Assessment and Plan Plan: #1 Acute exacerbation of chronic obstructive pulmonary disease. #2 Chronic and ongoing tobacco dependence. #3 Hypertension. #4 Hyperlipidemia. #5 Benign prostatic hypertrophy. #6 History of gout. Plan: Patient continues to improve, no acute events overnight, tolerating ambulation, easier, less bronchospastic. From pulmonary perspective patient is stable for discharge home today, on outpatient course of oral antibiotics, prednisone taper , his maintenance inhalers and nebulized treatments. Follow-up with Dr. Vázquez in the office in one week I performed a history & physical examination of the patient and discussed their management with my nurse practitioner, Swati Draper. I reviewed the nurse practitioner's note and agree with the documented findings and plan of care. Lung sounds are diminished, with some expiratory wheezes. The findings and the impression was discussed with the patient. I attest to the documentation by the nurse practitioner. Time with Patient: Less than 30
== END 2018-06-24 14:45 | disposition home or self-care (01) | DRG 190 ==
LOC: EC 16:09 → INTOOBSV 18:28 → 3NMEDONC 18:28 → OBSVTOIN 06-23 13:01
PROVIDERS: ADMIT Family Medicine; ATTEND Family Medicine
DX: J44.1 Chronic obstructive pulmonary disease with (acute) exacerbation (principal); J96.01 Acute respiratory failure with hypoxia; J20.9 Acute bronchitis, unspecified; E78.5 Hyperlipidemia, unspecified; M10.9 Gout, unspecified; N40.0 Benign prostatic hyperplasia without lower urinary tract symptoms; I10 Essential (primary) hypertension; F17.210 Nicotine dependence, cigarettes, uncomplicated; F17.220 Nicotine dependence, chewing tobacco, uncomplicated; E66.9 Obesity, unspecified; Z68.28 Body mass index [BMI] 28.0-28.9, adult; Z79.899 Other long term (current) drug therapy; Z79.82 Long term (current) use of aspirin; Z82.49 Family history of ischemic heart disease and other diseases of the circulatory system
CPT/HCPCS: 36415; 71046; 80048; 80053; 82550; 82553; 84484; 85025; 85610; 85730; 93005; 94640; 94660; 94760; 96374; 96375; 99285

== ENCOUNTER → 2020-11-21 | Outpatient (CLI) | payer MEDICARE ==
--- NOTE | 2020-11-21 13:13 | XR ---
EXAMINATION TYPE: XR chest 2V DATE OF EXAM: 11/21/2020 COMPARISON: 06/20/18 HISTORY: Shortness of breath TECHNIQUE: Frontal and lateral views of the chest are obtained. FINDINGS: Scattered senescent parenchymal changes noted. Hyperinflation compatible with COPD. No evidence for infiltrate. No evidence for atelectasis. Heart size is stable. Mediastinal structures are stable and grossly unremarkable. No evidence for hilar prominence. Degenerative changes dorsal spine. IMPRESSION: 1. No evidence for acute pulmonary disease.
== END | disposition home or self-care (01) ==
LOC: RADXRMAIN 12:55
PROVIDERS: ATTEND Nurse Practitioner Family
DX: R06.02 Shortness of breath (principal)
CPT/HCPCS: 71046

== ENCOUNTER 2020-11-26 10:45 | Observation (INO) | payer MEDICARE ==
[2020-11-26] MEDS ORDERED: SODIUM CHLORIDE 0.9% 1,000 ML IV STA (10:59)
[2020-11-26] MEDS ORDERED: methylPREDNISolone SOD SUCCI 125 MG/2 ML VIAL IV STA (10:59)
[2020-11-26] MEDS ORDERED: IPRATROPIUM-ALBUTEROL 3 ML NEB INHALATION STA ×2 (10:59→13:12)
--- NOTE | 2020-11-26 11:02 | ED ---
SOB HPI - General Chief Complaint: Shortness of Breath Stated Complaint: RAN Time Seen by Provider: 11/26/20 10:59 Source: patient, RN notes reviewed, old records reviewed Mode of arrival: wheelchair Limitations: no limitations - History of Present Illness Initial Comments: This is a 61-year-old male DF for evaluation of shortness of breath. Patient inman s history of COPD and CHF 13 and steroids for a while with no improvement in his symptoms. His exercise tolerance is basically nothing. He has significant shortness of breath with any activity level. Prior to be evaluated. Patient denies significant history of heart disease but complains of significant shortness of breath on arrival to the ER. No fevers, no chest pain MD Complaint: shortness of breath, cough, pain with inspiration, "asthma attack" -: week(s) Severity: moderate Severity scale (1-10): 4 Quality: dull Consistency: constant Improves With: oxygen, rest Worsens With: exertion, movement, coughing Known History Of: COPD Context: recent URI, recent illness Associated Symptoms: cough, sputum production Treatments Prior to Arrival: none - Related Data Home Medications Medication Instructions Recorded Confirmed Albuterol Inhaler (Mhu) [Ventolin 1 - 2 puff INHALATION RT-Q6H PRN 04/22/18 06/20/18 Hfa Inhaler (Mhu)] Aspirin EC [Ecotrin] 325 mg PO HS 04/22/18 06/20/18 Metoprolol Tartrate [Lopressor] 50 mg PO HS 04/22/18 06/20/18 Tamsulosin [Flomax] 0.4 mg PO HS 04/22/18 06/20/18 Verapamil HCl [Verapamil ER] 240 mg PO HS 04/22/18 06/20/18 Albuterol Nebulized [Ventolin 2.5 mg INHALATION RT-Q4H PRN 06/20/18 06/20/18 Nebulized] Budesonide/Formoterol Fumarate 2 puff INHALATION RT-BID 06/20/18 06/20/18 [Symbicort 80-4.5 Mcg Inhaler] Pravastatin Sodium [Pravachol] 20 mg PO DAILY 06/20/18 06/20/18 Previous Rx's Medication Instructions Recorded Azithromycin [Zithromax] 500 mg PO DAILY 3 Days #3 tab 06/24/18 Ipratropium-Albuterol Nebulize 3 ml INHALATION RT-QID 30 Days 06/24/18 [Duoneb 0.5 mg-3 mg/3 ml Soln] #120 ampul.neb Nicotine 14Mg/24Hr Patch [Habitrol] 1 patch TRANSDERM DAILY 28 Days 06/24/18 #28 patch predniSONE 10 mg PO DAILY #40 tab 06/24/18 Allergies Allergy/AdvReac Type Severity Reaction Status Date / Time No Known Allergies Allergy Verified 11/26/20 10:50 Review of Systems ROS Statement: Those systems with pertinent positive or pertinent negative responses have been documented in the HPI. ROS Other: All systems not noted in ROS Statement are negative. Past Medical History Past Medical History: COPD, Hypertension Additional Past Medical History / Comment(s): PAST HX OF GOUT History of Any Multi-Drug Resistant Organisms: None Reported Past Surgical History: No Surgical Hx Reported Additional Past Surgical History / Comment(s): COLONOSCOPY Past Anesthesia/Blood Transfusion Reactions: No Reported Reaction Past Psychological History: No Psychological Hx Reported Smoking Status: Current every day smoker Past Alcohol Use History: None Reported Past Drug Use History: None Reported - Past Family History Mother Family Medical History: Hypertension Father Family Medical History: No Reported History Additional Family Medical History / Comment(s): IN MVA 40 YEARS AGO General Exam Limitations: no limitations General appearance: alert, in no apparent distress Head exam: Present: atraumatic, normocephalic, normal inspection Eye exam: Present: normal appearance, PERRL, EOMI. Absent: scleral icterus, conjunctival injection, periorbital swelling ENT exam: Present: normal exam, mucous membranes moist Neck exam: Present: normal inspection. Absent: tenderness, meningismus, lymphadenopathy Respiratory exam: Present: wheezes, decreased breath sounds, prolonged expira tory. Absent: respiratory distress, rales, rhonchi, stridor Cardiovascular Exam: Present: regular rate, normal rhythm, normal heart sounds. Absent: systolic murmur, diastolic murmur, rubs, gallop, clicks GI/Abdominal exam: Present: soft, normal bowel sounds. Absent: distended, tenderness, guarding, rebound, rigid Extremities exam: Present: normal inspection, full ROM, normal capillary refill. Absent: tenderness, pedal edema, joint swelling, calf tenderness Back exam: Present: normal inspection Neurological exam: Present: alert, oriented X3, CN II-XII intact Psychiatric exam: Present: normal affect, normal mood Skin exam: Present: warm, dry, intact, normal color. Absent: rash Course Vital Signs 11/26/20 11/26/20 11/26/20 10:50 11:05 11:10 Temperature 98.2 F 98.1 F Pulse Rate 88 72 Respiratory 18 22 22 Rate Blood Pressure 157/105 161/114 O2 Sat by Pulse 95 96 Oximetry 11/26/20 11/26/20 11/26/20 11:44 11:56 12:10 Temperature Pulse Rate 70 72 72 Respiratory 18 Rate Blood Pressure 136/100 O2 Sat by Pulse 96 Oximetry - Reevaluation(s) Reevaluation #1: 11/26/20 13:15 Medical record is reviewed Reevaluation #2: 11/26/20 13:16 Patient still remains short of breath here in the emergency department Reevaluation #3: 11/26/20 13:16 Patient informed of results and questions are answered, again remains consis tently short of breath - Consultations Consultation #1: Spoke with SAMUEL to agrees to admit the patient Medical Decision Making - Medical Decision Making 7 female DF for evaluation patient to be admitted for shortness of breath secondary severe COPD exacerbation decreased exercise tolerance feels better wi th breathing treatments and oxygen here in the ER but still feeling significantly short of breath - Lab Data Result diagrams: 11/26/20 10:57 11/26/20 10:57 Lab Results 11/26/20 11/26/20 11/26/20 Range/Units 10:57 10:57 10:57 WBC 12.7 H (3.8-10.6) k/uL RBC 4.88 (4.30-5.90) m/uL Hgb 15.2 (13.0-17.5) gm/dL Hct 46.6 (39.0-53.0) % MCV 95.4 (80.0-100.0) fL MCH 31.1 (25.0-35.0) pg MCHC 32.6 (31.0-37.0) g/dL RDW 13.9 (11.5-15.5) % Plt Count 309 (150-450) k/uL MPV 6.7 Neutrophils % 85 % Lymphocytes % 10 % Monocytes % 3 % Eosinophils % 0 % Basophils % 1 % Neutrophils # 10.8 H (1.3-7.7) k/uL Lymphocytes # 1.2 (1.0-4.8) k/uL Monocytes # 0.3 (0-1.0) k/uL Eosinophils # 0.1 (0-0.7) k/uL Basophils # 0.1 (0-0.2) k/uL Sodium 137 (137-145) mmol/L Potassium 4.2 (3.5-5.1) mmol/L Chloride 102 (98-107) mmol/L Carbon Dioxide 28 (22-30) mmol/L Anion Gap 7 mmol/L BUN 16 (9-20) mg/dL Creatinine 0.94 (0.66-1.25) mg/dL Est GFR (CKD-EPI)AfAm >90 (>60 ml/min/1.73 sqM) Est GFR (CKD-EPI)NonAf 83 (>60 ml/min/1.73 sqM) Glucose 141 H (74-99) mg/dL Calcium 9.1 (8.4-10.2) mg/dL Magnesium 1.9 (1.6-2.3) mg/dL Total Bilirubin 0.5 (0.2-1.3) mg/dL AST 23 (17-59) U/L ALT 28 (4-49) U/L Alkaline Phosphatase 100 (38-126) U/L Creatine Kinase 89 (55-170) U/L CK-MB (CK-2) 3.0 H (0.0-2.4) ng/mL Troponin I <0.012 (0.000-0.034) ng/mL NT-Pro-B Natriuret Pep pg/mL Total Protein 6.7 (6.3-8.2) g/dL Albumin 3.9 (3.5-5.0) g/dL 11/26/20 Range/Units 10:57 WBC (3.8-10.6) k/uL RBC (4.30-5.90) m/uL Hgb (13.0-17.5) gm/dL Hct (39.0-53.0) % MCV (80.0-100.0) fL MCH (25.0-35.0) pg MCHC (31.0-37.0) g/dL RDW (11.5-15.5) % Plt Count (150-450) k/uL MPV Neutrophils % % Lymphocytes % % Monocytes % % Eosinophils % % Basophils % % Neutrophils # (1.3-7.7) k/uL Lymphocytes # (1.0-4.8) k/uL Monocytes # (0-1.0) k/uL Eosinophils # (0-0.7) k/uL Basophils # (0-0.2) k/uL Sodium (137-145) mmol/L Potassium (3.5-5.1) mmol/L Chloride (98-107) mmol/L Carbon Dioxide (22-30) mmol/L Anion Gap mmol/L BUN (9-20) mg/dL Creatinine (0.66-1.25) mg/dL Est GFR (CKD-EPI)AfAm (>60 ml/min/1.73 sqM) Est GFR (CKD-EPI)NonAf (>60 ml/min/1.73 sqM) Glucose (74-99) mg/dL Calcium (8.4-10.2) mg/dL Magnesium (1.6-2.3) mg/dL Total Bilirubin (0.2-1.3) mg/dL AST (17-59) U/L ALT (4-49) U/L Alkaline Phosphatase (38-126) U/L Creatine Kinase (55-170) U/L CK-MB (CK-2) (0.0-2.4) ng/mL Troponin I (0.000-0.034) ng/mL NT-Pro-B Natriuret Pep 237 pg/mL Total Protein (6.3-8.2) g/dL Albumin (3.5-5.0) g/dL - EKG Data -: EKG Interpreted by Me (EKG shows sinus rhythm 85 ID 160 QRS 82 QTC 428) - Radiology Data Radiology results: report reviewed (Chest x-rays negative for acute disease), image reviewed Disposition Clinical Impression: Acute exacerbation of chronic obstructive airways disease, COPD exacerbation Disposition: ADMITTED IP TO THIS HOSP Condition: Good Is patient prescribed a controlled substance at d/c from ED?: No Referrals: Paul Davidson MD [Primary Care Provider] - 1-2 days
[2020-11-26 11:25] LABS: Basophils # (A) 0.1 k/uL (0-0.2); Basophils % (A) 1 %; Eosinophils # (A) 0.1 k/uL (0-0.7); Eosinophils % (A) 0 %; HCT 46.6 % (39.0-53.0); HGB 15.2 gm/dL (13.0-17.5); Lymphocytes # (A) 1.2 k/uL (1.0-4.8); Lymphocytes % (A) 10 %; MCH 31.1 pg (25.0-35.0); MCHC 32.6 g/dL (31.0-37.0); MCV 95.4 fL (80.0-100.0); Mean Platelet Volume 6.7; Monocytes # (A) 0.3 k/uL (0-1.0); Monocytes % (A) 3 %; Neutrophils # (A) 10.8 k/uL (1.3-7.7); Neutrophils % (A) 85 %; Platelet Count 309 k/uL (150-450); RBC 4.88 m/uL (4.30-5.90); RDW 13.9 % (11.5-15.5); WBC 12.7 k/uL (3.8-10.6)
[2020-11-26 11:32] LABS: ALT 28 U/L (4-49); AST 23 U/L (17-59); African American GFR (CKD) >90 (>60 ml/min/1.73 sqM); Albumin 3.9 g/dL (3.5-5.0); Alkaline Phosphatase 100 U/L (38-126); Anion Gap 7 mmol/L; Blood Urea Nitrogen 16 mg/dL (9-20); Calcium 9.1 mg/dL (8.4-10.2); Carbon Dioxide 28 mmol/L (22-30); Chloride 102 mmol/L (98-107); Creatine Kinase 89 U/L (55-170); Glucose 141 mg/dL (74-99); Magnesium 1.9 mg/dL (1.6-2.3); Non-African American GFR(CKD) 83 (>60 ml/min/1.73 sqM); Potassium 4.2 mmol/L (3.5-5.1); Sodium 137 mmol/L (137-145); Total Bilirubin 0.5 mg/dL (0.2-1.3); Total Protein 6.7 g/dL (6.3-8.2)
[2020-11-26 11:44] LABS: Troponin I <0.012 ng/mL (0.000-0.034)
--- NOTE | 2020-11-26 11:54 | XR ---
EXAMINATION TYPE: XR chest 2V DATE OF EXAM: 11/26/2020 COMPARISON: 11/21/2020 HISTORY: Shortness of breath TECHNIQUE: Frontal and lateral views of the chest are obtained. FINDINGS: Scattered senescent parenchymal changes noted. Hyperinflation compatible with COPD. No evidence for infiltrate. No evidence for atelectasis. Heart size is stable. Mediastinal structures are stable and grossly unremarkable. No evidence for hilar prominence. Degenerative changes dorsal spine. IMPRESSION: 1. No evidence for acute pulmonary disease.
[2020-11-26] MEDS ORDERED: IPRATROPIUM-ALBUTEROL 3 ML NEB INHALATION PRN (13:12)
--- NOTE | 2020-11-26 15:32 | P.CNPUL ---
History of Present Illness Consult date: 11/26/20 Reason for consult: dyspnea, COPD History of present illness: 69-year-old patient with known history of advanced COPD maintained on a combination of Spiriva and Symbicort on outpatient basis. He is not using home oxygen. The patient is a chronic smoker and admits to smoke around a few cigarettes on a daily basis. He presented to the ED with worsening shortness of breath. He had a congested cough and yellowish sputum production. He was being treated on outpatient basis with a course of Levaquin and he did not see any much improvement. No hemoptysis. No pleurisy. No fever. No chills. He was using his albuterol frequently and it got to a point where he was unable to breathe or perform activities of daily today life and for that reason he came into the emergency department. No swelling in lower extremities. No altered mentation. Chest x-ray was consistent with COPD. No acute infiltrates. His Covid 19 testing came back negative. He has already taken his Covid 19 vaccination, completed process without any major issues. His blood work was essentially benign Review of Systems Constitutional: Denies chills, Denies fever Eyes: denies blurred vision, denies decreased vision Ears: deny: decreased hearing Ears, nose, mouth and throat: Denies headache, Denies sore throat Cardiovascular: Reports dyspnea on exertion, Reports shortness of breath Respiratory: Reports congestion, Reports cough, Reports dyspnea, Reports wheezing Gastrointestinal: Denies abdominal pain, Denies diarrhea, Denies nausea, Denies vomiting Genitourinary: Reports as per HPI Musculoskeletal: Denies myalgias Integumentary: Denies pruritus, Denies rash Neurological: Denies numbness, Denies weakness Psychiatric: Denies anxiety, Denies depression Endocrine: Denies fatigue, Denies weight change Hematologic/Lymphatic: Reports as per HPI Allergic/Immunologic: Reports as per HPI Past Medical History Past Medical History: COPD, Hypertension Additional Past Medical History / Comment(s): PAST HX OF GOUT History of Any Multi-Drug Resistant Organisms: None Reported Past Surgical History: No Surgical Hx Reported Additional Past Surgical History / Comment(s): COLONOSCOPY Past Anesthesia/Blood Transfusion Reactions: No Reported Reaction Past Psychological History: No Psychological Hx Reported Smoking Status: Current every day smoker Past Alcohol Use History: None Reported Past Drug Use History: None Reported - Past Family History Mother Family Medical History: Hypertension Father Family Medical History: No Reported History Additional Family Medical History / Comment(s): IN MVA 40 YEARS AGO Medications and Allergies Home Medications Medication Instructions Recorded Confirmed Type Aspirin EC [Ecotrin] 325 mg PO HS 04/22/18 11/26/20 History Metoprolol Tartrate [Lopressor] 50 mg PO HS 04/22/18 11/26/20 History Tamsulosin [Flomax] 0.8 mg PO HS 04/22/18 11/26/20 History Verapamil HCl [Verapamil ER] 240 mg PO HS 04/22/18 11/26/20 History Albuterol Nebulized [Ventolin 2.5 mg INHALATION RT-Q4H PRN 06/20/18 11/26/20 History Nebulized] Budesonide/Formoterol Fumarate 2 puff INHALATION RT-BID 06/20/18 11/26/20 History [Symbicort 80-4.5 Mcg Inhaler] Pravastatin Sodium [Pravachol] 20 mg PO HS 06/20/18 11/26/20 History Albuterol Sulfate [Ventolin HFA] 1 - 2 puff INHALATION RT-Q6H PRN 11/26/20 11/26/20 History Tiotropium 18 Mcg/Puff [Spiriva] 1 puff INHALATION RT-DAILY 11/26/20 11/26/20 History Allergies Allergy/AdvReac Type Severity Reaction Status Date / Time No Known Allergies Allergy Verified 11/26/20 13:56 Physical Exam Vitals: Vital Signs Temp Pulse Resp BP Pulse Ox 11/26/20 14:53 77 18 168/94 97 11/26/20 14:51 79 11/26/20 14:35 78 11/26/20 12:10 72 18 136/100 96 11/26/20 11:56 72 11/26/20 11:44 70 11/26/20 11:10 98.1 F 72 22 161/114 96 11/26/20 11:05 22 11/26/20 10:50 98.2 F 88 18 157/105 95 Intake and Output 11/26/20 11/26/20 11/26/20 06:59 14:59 22:59 Other: Weight 110.223 kg GENERAL EXAM: Alert, active, comfortable in no apparent distress. HEAD: Normocephalic. EYES: Normal reaction of pupils, equal size. NOSE: Clear with pink turbinates. THROAT: No erythema or exudates. NECK: No masses, no JVD. CHEST: No chest wall deformity. LUNGS: Equal air entry with faint bilateral end expiratory wheeze. Diminished. The patient has diffuse expiratory wheezes and the air entry is markedly diminished bilaterally. CVS: S1 and S2 normal with no audible murmur, regular rhythm. ABDOMEN: No hepatosplenomegaly, normal bowel sounds, no guarding or rigidity. SPINE: No scoliosis or deformity SKIN: No rashes CENTRAL NERVOUS SYSTEM: No focal deficits, tone is normal in all 4 extremities. EXTREMITIES: There is no peripheral edema. No clubbing, no cyanosis. Peripheral pulses are intact. Results - Laboratory Findings CBC and BMP: 11/26/20 10:57 11/26/20 10:57 Abnormal lab findings: Abnormal Labs 11/26/20 11/26/20 11/26/20 10:57 10:57 10:57 WBC 12.7 H Neutrophils # 10.8 H Glucose 141 H CK-MB (CK-2) 3.0 H - Diagnostic Findings Chest x-ray: image reviewed Assessment and Plan Plan: #1 Acute exacerbation of chronic obstructive pulmonary disease. The patient is having significant shortness of breath. This suspected being smoking. No evidence of a pneumonia. Failed outpatient antibiotics for that reason he was hospitalized for treatment of COPD exacerbation. #2 Chronic and ongoing tobacco dependence of greater than 50 years at 1 pack per day. #3 Hypertension. #4 Hyperlipidemia. #5 Benign prostatic hypertrophy. #6 gout Plan: We'll treat this patient with DuoNeb nebulized treatments around the clock 4 times a day IV Solu Medrol 60 mg every 6 hours Continue the course of empiric antibiotic coverage with Levaquin 750 for the next 5 days Covid 19 testing was negative Smoking cessation counseling was done Heparin subcu for prophylaxis will continue to follow. Will need a brief hospitalization probably for a day or 2 to optimize his COPD. We'll continue to follow.
[2020-11-26] MEDS: IPRATROPIUM-ALBUTEROL 3 ML NEB INHALATION SCH ×2 (15:43→19:02)
[2020-11-26] MEDS ORDERED: ALBUTEROL NEBULIZED 2.5 MG/3 ML INHALATION SCH (16:00)
[2020-11-26] MEDS: HYDROcodone/APAP 5-325MG 1 EACH TAB PO PRN (17:50)
[2020-11-26] MEDS: LEVOFLOXACIN 750 MG TAB PO SCH (17:52)
[2020-11-26] MEDS: HEPARIN SODIUM,PORCINE 5,000 UNIT/ML 1 ML VIAL SQ SCH (17:52)
[2020-11-26] MEDS: SODIUM CHLORIDE 0.9% 1,000 ML IV SCH ×2 (17:52→22:53)
[2020-11-26] MEDS: SYMBICORT 160-4.5 MCG INHALER INHALATION SCH (19:02)
[2020-11-26] MEDS: TAMSULOSIN 0.4 MG CAP.ER.24H PO SCH (21:04)
[2020-11-26] MEDS: methylPREDNISolone SOD SUCCI 125 MG/2 ML VIAL IV SCH (21:04)
[2020-11-26] MEDS: PRAVASTATIN SODIUM 20 MG TAB PO SCH (21:04)
[2020-11-26] MEDS: ASPIRIN 325 MG TAB PO SCH (21:04)
[2020-11-26] MEDS: METOPROLOL TARTRATE 50 MG TAB PO SCH (21:05)
[2020-11-26] MEDS: VERAPAMIL SR 240 MG TABLET.ER PO SCH (22:52)
[2020-11-27] MEDS: IPRATROPIUM-ALBUTEROL 3 ML NEB INHALATION SCH ×6 (01:08→19:37)
[2020-11-27] MEDS: methylPREDNISolone SOD SUCCI 125 MG/2 ML VIAL IV SCH ×4 (01:13→17:09)
[2020-11-27] MEDS: HEPARIN SODIUM,PORCINE 5,000 UNIT/ML 1 ML VIAL SQ SCH ×4 (01:13→21:04)
[2020-11-27] MEDS: SYMBICORT 160-4.5 MCG INHALER INHALATION SCH ×2 (06:43→19:37)
[2020-11-27] MEDS: LEVOFLOXACIN 750 MG TAB PO SCH (07:55)
[2020-11-27] MEDS: HYDROcodone/APAP 5-325MG 1 EACH TAB PO PRN ×3 (07:55→21:05)
[2020-11-27] MEDS ORDERED: hydrALAZINE HCL 25 MG TAB PO PRN (08:27)
[2020-11-27] MEDS ORDERED: FAMOTIDINE 20 MG/2 ML VIAL IV SCH (09:00)
[2020-11-27] MEDS: amLODIPine 5 MG TAB PO SCH (10:13)
[2020-11-27] MEDS: SODIUM CHLORIDE 0.9% 1,000 ML IV SCH ×2 (10:13→19:26)
--- NOTE | 2020-11-27 11:48 | P.HPIM ---
History of Present Illness This is a pleasant 69 years old male with past medical history of COPD, hypertension, cigarette smoker. He is a patient of Dr. clark and he is not on home oxygen. He still smokes about 4-5 cigarettes a day presents because of her progressive dyspnea for more than a week associated with cough and worsening white phlegm at the same time with no chest pain or abdominal pain or nausea vomiting or change in urine or bowel habits. He denies alcohol or illicit drugs. Oxygen saturation 95% on 3 L oxygen via nasal cannula, he is tachypneic with respiratory rate of 20 and blood pressure elevated 170/89. He has mild leukocytosis with WBC 12.7 K. Risks of CBC, INR, BMP and liver enzymes are unremarkable. Troponins are less than 0.012. ProBNP is 237. Coronal part was not detected. Chest x-ray: No evidence of acute cardiopulmonary disease. EKG showing normal sinus rhythm at 85 bpm with no significant ST-T changes Review of Systems CONSTITUTIONAL: No fever, no malaise, no fatigue. HEENT: No recent visual problems or hearing problems. Denied any sore throat. CARDIOVASCULAR: No orthopnea, PND, no palpitations, no syncope. PULMONARY: No chest wall tenderness, no hemoptysis. GASTROINTESTINAL: No diarrhea, no nausea, no vomiting, no abdominal pain. Normoactive bowel sounds. NEUROLOGICAL: No headaches, no weakness, no numbness. HEMATOLOGICAL: Denies any bleeding or petechiae. GENITOURINARY: Denies any burning micturition, frequency, or urgency. MUSCULOSKELETAL/RHEUMATOLOGICAL: Denies any joint pain, swelling, or any muscle pain. ENDOCRINE: Denies any polyuria or polydipsia. Past Medical History Past Medical History: COPD, Hypertension Additional Past Medical History / Comment(s): PAST HX OF GOUT History of Any Multi-Drug Resistant Organisms: None Reported Past Surgical History: No Surgical Hx Reported Additional Past Surgical History / Comment(s): COLONOSCOPY Past Anesthesia/Blood Transfusion Reactions: No Reported Reaction Past Psychological History: No Psychological Hx Reported Smoking Status: Current every day smoker Past Alcohol Use History: None Reported Past Drug Use History: None Reported - Past Family History Mother Family Medical History: Hypertension Father Family Medical History: No Reported History Additional Family Medical History / Comment(s): IN MVA 40 YEARS AGO Medications and Allergies Home Medications Medication Instructions Recorded Confirmed Type Aspirin EC [Ecotrin] 325 mg PO HS 08/21/18 03/27/21 History Metoprolol Tartrate [Lopressor] 50 mg PO HS 04/22/18 11/26/20 History Tamsulosin [Flomax] 0.8 mg PO HS 04/22/18 11/26/20 History Verapamil HCl [Verapamil ER] 240 mg PO HS 04/22/18 11/26/20 History Albuterol Nebulized [Ventolin 2.5 mg INHALATION RT-Q4H PRN 06/20/18 11/26/20 History Nebulized] Budesonide/Formoterol Fumarate 2 puff INHALATION RT-BID 06/20/18 11/26/20 History [Symbicort 80-4.5 Mcg Inhaler] Pravastatin Sodium [Pravachol] 20 mg PO HS 06/20/18 11/26/20 History Albuterol Sulfate [Ventolin HFA] 1 - 2 puff INHALATION RT-Q6H PRN 11/26/20 11/26/20 History HYDROcodone/APAP 10-325MG [[place] 1 tab PO QID PRN 11/26/20 11/26/20 History 10-325] Tiotropium 18 Mcg/Puff [Spiriva] 1 puff INHALATION RT-DAILY 11/26/20 11/26/20 History Allergies Allergy/AdvReac Type Severity Reaction Status Date / Time No Known Allergies Allergy Verified 11/26/20 13:56 Physical Exam Vitals: Vital Signs Temp Pulse Pulse Resp BP BP Pulse Ox 11/27/20 02:00 20 11/27/20 01:40 97.9 F 77 20 170/89 95 11/26/20 23:23 75 11/26/20 23:15 80 11/26/20 22:19 98.3 F 64 25 H 156/92 96 11/26/20 21:27 97.9 F 90 18 132/72 98 11/26/20 19:15 90 11/26/20 19:02 87 98 11/26/20 14:53 77 18 168/94 97 11/26/20 14:51 79 11/26/20 14:35 78 11/26/20 12:10 72 18 136/100 96 11/26/20 11:56 72 11/26/20 11:44 70 11/26/20 11:10 98.1 F 72 22 161/114 96 11/26/20 11:05 22 11/26/20 10:52 97.9 F 77 20 170/89 95 11/26/20 10:50 98.2 F 88 18 157/105 95 Intake and Output 11/26/20 11/27/20 11/27/20 22:59 06:59 14:59 Other: # Voids 1 -GENERAL: The patient is alert and oriented x3, not in any acute distress. Obese HEENT: Pupils are round and equally reacting to light. EOMI. No scleral icterus. No conjunctival pallor. Normocephalic, atraumatic. No pharyngeal erythema. No thyromegaly. CARDIOVASCULAR: S1 and S2 present. No murmurs, rubs, or gallops. -PULMONARY: Chest is clear to auscultation, bilateral expiratory wheezing ABDOMEN: Soft, nontender, nondistended, normoactive bowel sounds. No palpable organomegaly. MUSCULOSKELETAL: No joint swelling or deformity. EXTREMITIES: No cyanosis, clubbing, or pedal edema. NEUROLOGICAL: Gross neurological examination did not reveal any focal deficits. SKIN: No rashes. No petechiae Results CBC & Chem 7: 11/26/20 10:57 11/26/20 10:57 Labs: Abnormal Lab Results - Last 24 Hours (Table) 11/26/20 11/26/20 11/26/20 Range/Units 10:57 10:57 10:57 WBC 12.7 H (3.8-10.6) k/uL Neutrophils # 10.8 H (1.3-7.7) k/uL Glucose 141 H (74-99) mg/dL CK-MB (CK-2) 3.0 H (0.0-2.4) ng/mL Thrombosis Risk Factor Assmnt - Choose All That Apply Each Risk Factor Represents 2 Points: Age 61-74 years Thrombosis Risk Factor Assessment Total Risk Factor Score: 2 Thrombosis Risk Factor Assessment Level: Low Risk Assessment and Plan Assessment: Acute COPD exacerbation Nicotine dependence Hypertension, uncontrolled obesity Plan: This is a pleasant 69 years old male who presents with COPD exacerbation. Continue with steroids, bronchodilators, oxygen as needed, and prepped antibiotic coverage and pulmonary consult And Norvasc and monitor blood pressure. Hydralazine as needed Labs and medication were reviewed.. Continue same treatment. Continue with symptomatic treatment. Resume home medication. Monitor lytes and vitals. DVT and GI prophylaxis. Further recommendations depends on the clinical course of the patient DVT prophylaxis: Subcutaneous heparin GI Prophylaxis: Pepcid Prognosis is guarded
--- NOTE | 2020-11-27 15:39 | P.PN ---
Subjective Progress Note Date: 11/27/20 69-year-old patient with known history of advanced COPD maintained on a combina tion of Spiriva and Symbicort on outpatient basis. He is not using home oxygen. The patient is a chronic smoker and admits to smoke around a few cigarettes on a daily basis. He presented to the ED with worsening shortness of breath. He had a congested cough and yellowish sputum production. He was being treated on outpatient basis with a course of Levaquin and he did not see any much improveme nt. No hemoptysis. No pleurisy. No fever. No chills. He was using his albuterol frequently and it got to a point where he was unable to breathe or perform activities of daily today life and for that reason he came into the emergency department. No swelling in lower extremities. No altered mentation. Chest x-ray was consistent with COPD. No acute infiltrates. His Covid 19 testing came back negative. He has already taken his Covid 19 vaccination, completed process without any major issues. His blood work was essentially benign 11/27/2020 the patient is much improved and is much less short of breath and bronchospastic and wheezy compared to yesterday. He is still wearing oxygen. I checked him on room air oxygen and his pulse ox is around 94% it is not having any significant desaturation. He remains on bronchodilators. He remains on systemic steroids. Objective - Vital Signs Vital signs: Vital Signs Temp 98.6 F 11/27/20 15:00 Pulse 77 11/27/20 15:00 Resp 20 11/27/20 15:00 BP 149/72 11/27/20 15:00 Pulse Ox 94 L 11/27/20 15:00 Intake & Output 11/26/20 11/27/20 11/27/20 18:59 06:59 18:59 Weight 110.223 kg Other: # Voids 1 2 - Exam GENERAL EXAM: Alert, active, comfortable in no apparent distress. HEAD: Normocephalic. EYES: Normal reaction of pupils, equal size. NOSE: Clear with pink turbinates. THROAT: No erythema or exudates. NECK: No masses, no JVD. CHEST: No chest wall deformity. LUNGS: Equal air entry with faint bilateral end expiratory wheeze. Diminished. The patient has showing improvement in the breath sounds bilaterally and there is still diminished bilaterally. CVS: S1 and S2 normal with no audible murmur, regular rhythm. ABDOMEN: No hepatosplenomegaly, normal bowel sounds, no guarding or rigidity. SPINE: No scoliosis or deformity SKIN: No rashes CENTRAL NERVOUS SYSTEM: No focal deficits, tone is normal in all 4 extremities. EXTREMITIES: There is no peripheral edema. No clubbing, no cyanosis. Perip heral pulses are intact. - Labs CBC & Chem 7: 11/26/20 10:57 11/26/20 10:57 Assessment and Plan Plan: #1 Acute exacerbation of chronic obstructive pulmonary disease. Clinically improving #2 Chronic and ongoing tobacco dependence of greater than 50 years at 1 pack per day. #3 Hypertension. #4 Hyperlipidemia. #5 Benign prostatic hypertrophy. #6 gout Plan: We'll treat this patient with DuoNeb nebulized treatments around the clock 4 times a day IV Solu Medrol 60 mg every 6 hours, taper the patient a prednisone burst taper over the next 24 hours and possibly home in a.m. Continue Spiriva and Symbicort Continue the course of empiric antibiotic coverage with Levaquin 750 for the next 5 days Covid 19 testing was negative Smoking cessation counseling was done Heparin subcu for prophylaxis will continue to follow. Just reevaluating home oxygen needs in a.m.
[2020-11-27] MEDS: METOPROLOL TARTRATE 50 MG TAB PO SCH (21:04)
[2020-11-27] MEDS: TAMSULOSIN 0.4 MG CAP.ER.24H PO SCH (21:04)
[2020-11-27] MEDS: FAMOTIDINE 20 MG TAB PO SCH (21:04)
[2020-11-27] MEDS: VERAPAMIL SR 240 MG TABLET.ER PO SCH (21:05)
[2020-11-27] MEDS: PRAVASTATIN SODIUM 20 MG TAB PO SCH (21:05)
[2020-11-28] MEDS: IPRATROPIUM-ALBUTEROL 3 ML NEB INHALATION SCH ×6 (00:11→20:29)
[2020-11-28] MEDS: methylPREDNISolone SOD SUCCI 125 MG/2 ML VIAL IV SCH ×5 (00:33→23:20)
[2020-11-28] MEDS: SODIUM CHLORIDE 0.9% 1,000 ML IV SCH ×2 (04:36→15:07)
[2020-11-28] MEDS: SYMBICORT 160-4.5 MCG INHALER INHALATION SCH ×2 (07:35→20:30)
[2020-11-28] MEDS: LEVOFLOXACIN 750 MG TAB PO SCH (07:48)
[2020-11-28] MEDS: FAMOTIDINE 20 MG TAB PO SCH ×2 (07:49→21:45)
[2020-11-28] MEDS: ASPIRIN 325 MG TAB PO SCH (07:49)
[2020-11-28] MEDS: HEPARIN SODIUM,PORCINE 5,000 UNIT/ML 1 ML VIAL SQ SCH ×3 (07:49→21:45)
[2020-11-28] MEDS: amLODIPine 5 MG TAB PO SCH (07:49)
[2020-11-28] MEDS: HYDROcodone/APAP 5-325MG 1 EACH TAB PO PRN ×3 (07:52→21:46)
[2020-11-28] MEDS ORDERED: guaiFENesin-DM 100-10MG/5ML 10 ML CUP PO PRN (11:03)
[2020-11-28 11:53] LABS: Basophils % (A) 0 %; Eosinophils # (A) 0.1 k/uL (0-0.7); Eosinophils % (A) 0 %; HCT 42.6 % (39.0-53.0); HGB 13.8 gm/dL (13.0-17.5); Lymphocytes # (A) 0.8 k/uL (1.0-4.8); Lymphocytes % (A) 3 %; MCH 31.5 pg (25.0-35.0); MCHC 32.5 g/dL (31.0-37.0); MCV 97.1 fL (80.0-100.0); Mean Platelet Volume 6.9; Monocytes # (A) 0.6 k/uL (0-1.0); Monocytes % (A) 2 %; Neutrophils # (A) 27.4 k/uL (1.3-7.7); Neutrophils % (A) 94 %; Platelet Count 306 k/uL (150-450); RBC 4.39 m/uL (4.30-5.90); RDW 14.3 % (11.5-15.5); WBC 29.1 k/uL (3.8-10.6)
[2020-11-28 12:01] LABS: ALT 23 U/L (4-49); AST 16 U/L (17-59); African American GFR (CKD) 84 (>60 ml/min/1.73 sqM); Albumin 3.4 g/dL (3.5-5.0); Albumin/Globulin Ratio 1.3; Alkaline Phosphatase 80 U/L (38-126); Anion Gap 4 mmol/L; Bilirubin,Unconjugated 0.4 mg/dL (0.0-1.1); Blood Urea Nitrogen 31 mg/dL (9-20); Calcium 8.8 mg/dL (8.4-10.2); Carbon Dioxide 29 mmol/L (22-30); Chloride 104 mmol/L (98-107); Globulin 2.6 g/dL; Glucose 175 mg/dL (74-99); Non-African American GFR(CKD) 72 (>60 ml/min/1.73 sqM); Potassium 4.2 mmol/L (3.5-5.1); Sodium 137 mmol/L (137-145); Total Bilirubin 0.4 mg/dL (0.2-1.3)
[2020-11-28 12:08] LABS: Prothrombin Time 10.6 sec (9.0-12.0)
[2020-11-28 12:37] LABS: Toxic Granulation Present
[2020-11-28 21:28] LABS: Hemoglobin A1C 5.9 % (4.0-6.0)
[2020-11-28] MEDS: METOPROLOL TARTRATE 50 MG TAB PO SCH (21:45)
--- NOTE | 2020-11-28 21:45 | P.PN ---
Subjective This is a pleasant 69 years old male with past medical history of COPD, hypertension, cigarette smoker. He is a patient of Dr. clark and he is not on home oxygen. He still smokes about 4-5 cigarettes a day presents because of her progressive dyspnea for more than a week associated with cough and worsening white phlegm at the same time with no chest pain or abdominal pain or nausea vomiting or change in urine or bowel habits. He denies alcohol or illicit drugs. Oxygen saturation 95% on 3 L oxygen via nasal cannula, he is tachypneic with respiratory rate of 20 and blood pressure elevated 170/89. He has mild leukocytosis with WBC 12.7 K. Risks of CBC, INR, BMP and liver enzymes are unremarkable. Troponins are less than 0.012. ProBNP is 237. Coronal part was not detected. Chest x-ray: No evidence of acute cardiopulmonary disease. EKG showing normal sinus rhythm at 85 bpm with no significant ST-T changes 11/28/2020 Patient remains significantly dyspneic and significantly wheezing although he is improving and on room air at rest No chest pain or abdominal pain or diarrhea He is hemodynamically stable Some subdural 60 mg, discontinue IV fluids. Continue with Levaquin. Continue with Norvasc and hydralazine when necessary. Leukocytosis worsened today to 20 9K due to steroid effect. Rest of labs looks stable, hemoglobin A1c is normal at 5.9% Review of Systems CONSTITUTIONAL: No fever, no malaise, no fatigue. HEENT: No recent visual problems or hearing problems. Denied any sore throat. CARDIOVASCULAR: No orthopnea, PND, no palpitations, no syncope. PULMONARY: No chest wall tenderness, no hemoptysis. GASTROINTESTINAL: No diarrhea, no nausea, no vomiting, no abdominal pain. Normoactive bowel sounds. NEUROLOGICAL: No headaches, no weakness, no numbness. HEMATOLOGICAL: Denies any bleeding or petechiae. Active Medications Generic Name Dose Route Start Last Admin Trade Name Freq PRN Reason Stop Dose Admin Hydrocodone Bitart/Acetaminophen 1 each 11/26/20 17:46 11/28/20 16:11 Hydrocodone/Apap 5-325mg 1 Each Tab PO 1 each Q6HR PRN Administration Pain Albuterol/Ipratropium 3 ml 11/26/20 13:12 Ipratropium-Albuterol 3 Ml Neb INHALATION RT-Q4H PRN Shortness Of Breath Or Wheezing Albuterol/Ipratropium 3 ml 11/26/20 16:00 11/28/20 20:29 Ipratropium-Albuterol 3 Ml Neb INHALATION 3 ml RT-Q4H CARL Administration Amlodipine Besylate 5 mg 11/27/20 09:00 11/28/20 07:49 Amlodipine 5 Mg Tab PO 5 mg DAILY CARL Administration Aspirin 325 mg 11/26/20 21:00 11/28/20 07:49 Aspirin 325 Mg Tab PO 325 mg DAILY CARL Administration Budesonide/Formoterol Fumarate 2 puff 11/26/20 20:00 11/28/20 20:30 Symbicort 160-4.5 Mcg Inhaler INHALATION 2 puff RT-BID CARL Administration Famotidine 20 mg 11/27/20 21:00 11/28/20 07:49 Famotidine 20 Mg Tab PO 20 mg Q12HR CARL Administration Guaifenesin/Dextromethorphan 10 ml 11/28/20 11:03 Guaifenesin-Dm 100-10mg/5ml 10 Ml Cup PO Q6H PRN Cough Heparin Sodium (Porcine) 5,000 unit 11/26/20 16:00 11/28/20 15:06 Heparin Sodium,Porcine 5,000 Unit/Ml 1 Ml Vial SQ 5,000 unit Q8HR CARL Administration Hydralazine HCl 25 mg 11/27/20 08:27 Hydralazine Hcl 25 Mg Tab PO TID PRN Blood Pressure - High Sodium Chloride 1,000 mls @ 100 mls/hr 11/26/20 13:15 11/28/20 15:07 Saline 0.9% IV Not Given .Q10H CARL Levofloxacin 750 mg 11/26/20 16:00 11/28/20 07:48 Levofloxacin 750 Mg Tab PO 11/30/20 09:01 750 mg DAILY CARL Administration Methylprednisolone Sodium Succinate 60 mg 11/26/20 18:00 11/28/20 16:11 Methylprednisolone Sod Succi 125 Mg/2 Ml Vial IV 60 mg Q6HR CARL Administration Metoprolol Tartrate 50 mg 11/26/20 21:00 11/27/20 21:04 Metoprolol Tartrate 50 Mg Tab PO 50 mg HS CARL Administration Pravastatin Sodium 20 mg 11/26/20 21:00 11/27/20 21:05 Pravastatin Sodium 20 Mg Tab PO 20 mg HS CARL Administration Tamsulosin HCl 0.8 mg 11/26/20 21:00 11/27/20 21:04 Tamsulosin 0.4 Mg Cap.Er.24h PO 0.8 mg HS CARL Administration Verapamil HCl 240 mg 11/26/20 21:00 11/27/20 21:05 Verapamil Sr 240 Mg Tablet.Er PO 240 mg HS CARL Administration Objective - Vital Signs Vital signs: Vital Signs Temp 97.7 F 11/28/20 20:00 Pulse 71 11/28/20 20:00 Resp 18 11/28/20 20:00 BP 153/77 11/28/20 20:00 Pulse Ox 96 11/28/20 20:00 Intake & Output 11/28/20 11/28/20 11/29/20 06:59 18:59 06:59 Intake Total 240 Balance 240 Intake: Oral 240 Other: Voiding Method Toilet Toilet # Voids 1 5 # Bowel Movements 1 - Labs CBC & Chem 7: 11/28/20 11:35 11/28/20 11:35 Labs: Abnormal Lab Results - Last 24 Hours (Table) 11/28/20 11/28/20 Range/Units 11:35 11:35 WBC 29.1 H (3.8-10.6) k/uL Neutrophils # 27.4 H (1.3-7.7) k/uL Lymphocytes # 0.8 L (1.0-4.8) k/uL BUN 31 H (9-20) mg/dL Glucose 175 H (74-99) mg/dL AST 16 L (17-59) U/L Total Protein 6.0 L (6.3-8.2) g/dL Albumin 3.4 L (3.5-5.0) g/dL
[2020-11-28] MEDS: PRAVASTATIN SODIUM 20 MG TAB PO SCH (21:46)
[2020-11-28] MEDS: TAMSULOSIN 0.4 MG CAP.ER.24H PO SCH (21:46)
[2020-11-28] MEDS: VERAPAMIL SR 240 MG TABLET.ER PO SCH (21:46)
[2020-11-29] MEDS: IPRATROPIUM-ALBUTEROL 3 ML NEB INHALATION SCH ×3 (04:28→10:56)
[2020-11-29] MEDS: methylPREDNISolone SOD SUCCI 125 MG/2 ML VIAL IV SCH ×2 (05:15→12:39)
[2020-11-29] MEDS: HYDROcodone/APAP 5-325MG 1 EACH TAB PO PRN (07:07)
[2020-11-29] MEDS: SYMBICORT 160-4.5 MCG INHALER INHALATION SCH (07:13)
[2020-11-29 08:06] VITALS: BP 144/78; RESP 16; TEMP 97.9
[2020-11-29] MEDS: LEVOFLOXACIN 750 MG TAB PO SCH (09:08)
[2020-11-29] MEDS: FAMOTIDINE 20 MG TAB PO SCH (09:08)
[2020-11-29] MEDS: ASPIRIN 325 MG TAB PO SCH (09:08)
[2020-11-29] MEDS: HEPARIN SODIUM,PORCINE 5,000 UNIT/ML 1 ML VIAL SQ SCH (09:08)
[2020-11-29] MEDS: amLODIPine 5 MG TAB PO SCH (09:08)
[2020-11-29 09:38] LABS: HCT 42.2 % (39.6-50.0); HGB 13.5 g/dL (13.0-17.0); MCH 31.3 pg (27.0-32.0); MCV 97.9 fL (80.0-97.0); Mean Platelet Volume 9.1 fL (9.5-12.2); Platelet Count 233 X 10*3/uL (140-440); RBC 4.31 X 10*6/uL (4.40-5.60); RDW 14.2 % (11.5-14.5); WBC 23.37 X 10*3/uL (4.50-10.00)
[2020-11-29 10:58] VITALS: PULSE 68
[2020-11-29 11:40] LABS: Basophils # (A) 0.03 X 10*3/uL (0.00-0.10); Basophils % (A) 0.1 %; Eosinophils # (A) 0 X 10*3/uL (0.04-0.35); Eosinophils % (A) 0 %; Lymphocytes # (A) 1.04 X 10*3/uL (0.90-5.00); Lymphocytes % (A) 4.5 %; Monocytes # (A) 0.54 X 10*3/uL (0.20-1.00); Monocytes % (A) 2.3 %; Neutrophils # (A) 21.47 X 10*3/uL (1.80-7.70); Neutrophils % (A) 91.9 %
--- NOTE | 2020-11-29 21:11 | P.DS ---
Providers Date of admission: 11/26/20 13:12 Attending physician: Paul Davidson Consults: 11/26/20 13:12 Consult Physician Routine Consulting Provider: Guido Vázquez Consult Reason/Comments: copd Do you want consulting provider notified?: Yes Primary care physician: Paul Davidson Hospital Course: Diagnoses: Acute COPD exacerbation Nicotine dependence Hypertension, uncontrolled obesity hospital course: This is a pleasant 69 years old male with past medical history of COPD, hypertension, cigarette smoker. He is a patient of Dr. vázquez and he is not on home oxygen. He still smokes about 4-5 cigarettes a day presents because of her progressive dyspnea for more than a week associated with cough and worsening white phlegm. The patient found to have acute COPD exacerbation, evaluated by printing plate clerk. Treated with steroids and bronchodilator and antibiotics. Patient showed interval improvement, his dyspnea and wheezing improved significantly, his on room air at rest and exertion and does not qualify for home oxygen per staff Patient was eager to be discharged since yesterday claiming he is been improved back to baseline today. No other new complaint Patient will be discharged and 5 total days of antibiotic and tapered steroids Problems and management plan were discussed with the patient and he verbalized understanding and acceptance Patient was found stable and can be discharged home however he needs follow-up as an outpatient. Patient was instructed to follow up with PCP Dr. Davidson within one week and patient agrees. Also patient was instructed to follow up with printing plate clerk Dr. Vázquez in 1-2 weeks and he agrees to call and make his own appointments Physical exam Gen: patient is a AAOx3, no distress CVS: S1-S2, RRR, no murmur Lungs: B/L CTA, no wheezing Abdomen: soft, no distention, no tenderness, positive bowel sounds Extremity: no leg edema or induration Time spent more than 35 minutes Patient Condition at Discharge: Good Plan - Discharge Summary Discharge Rx Participant: No New Discharge Prescriptions: New Levofloxacin [Levaquin] 750 mg PO DAILY 1 Days #1 tab Famotidine [Pepcid] 20 mg PO Q12HR #60 tab amLODIPine [Norvasc] 5 mg PO DAILY #30 tab predniSONE 10 mg PO DIRECTED #18 tab Continue Tamsulosin [Flomax] 0.8 mg PO HS Aspirin EC [Ecotrin] 325 mg PO HS Verapamil HCl [Verapamil ER] 240 mg PO HS Metoprolol Tartrate [Lopressor] 50 mg PO HS Albuterol Nebulized [Ventolin Nebulized] 2.5 mg INHALATION RT-Q4H PRN PRN Reason: Shortness Of Breath Budesonide/Formoterol Fumarate [Symbicort 80-4.5 Mcg Inhaler] 2 puff INHALATION RT-BID Pravastatin Sodium [Pravachol] 20 mg PO HS Albuterol Sulfate [Ventolin HFA] 1 - 2 puff INHALATION RT-Q6H PRN PRN Reason: Shortness Of Breath HYDROcodone/APAP 10-325MG [[place] 10-325] 1 tab PO QID PRN PRN Reason: Pain Tiotropium 18 Mcg/Puff [Spiriva] 1 puff INHALATION RT-DAILY Discharge Medication List Aspirin EC [Ecotrin] 325 mg PO HS 04/22/18 [History] Metoprolol Tartrate [Lopressor] 50 mg PO HS 04/22/18 [History] Tamsulosin [Flomax] 0.8 mg PO HS 04/22/18 [History] Verapamil HCl [Verapamil ER] 240 mg PO HS 04/22/18 [History] Albuterol Nebulized [Ventolin Nebulized] 2.5 mg INHALATION RT-Q4H PRN 06/20/18 [History] Budesonide/Formoterol Fumarate [Symbicort 80-4.5 Mcg Inhaler] 2 puff INHALATION RT-BID 06/20/18 [History] Pravastatin Sodium [Pravachol] 20 mg PO HS 06/20/18 [History] Albuterol Sulfate [Ventolin HFA] 1 - 2 puff INHALATION RT-Q6H PRN 11/26/20 [History] HYDROcodone/APAP 10-325MG [[place] 10-325] 1 tab PO QID PRN 11/26/20 [History] Tiotropium 18 Mcg/Puff [Spiriva] 1 puff INHALATION RT-DAILY 11/26/20 [History] Famotidine [Pepcid] 20 mg PO Q12HR #60 tab 11/29/20 [Rx] Levofloxacin [Levaquin] 750 mg PO DAILY 1 Days #1 tab 11/29/20 [Rx] amLODIPine [Norvasc] 5 mg PO DAILY #30 tab 11/29/20 [Rx] predniSONE 10 mg PO DIRECTED #18 tab 11/29/20 [Rx] Follow up Appointment(s)/Referral(s): Paul Davidson MD [Primary Care Provider] - 1-2 days Guido Vázquez MD [STAFF PHYSICIAN] - 12/21/20 2:30 pm Patient Instructions/Handouts: COPD (Chronic Obstructive Pulmonary Disease) (DC) Activity/Diet/Wound Care/Special Instructions: heart healthy diet activity is restricted till you see your doctor Discharge Disposition: HOME SELF-CARE
== END 2020-11-29 13:54 | disposition home or self-care (01) ==
LOC: EC 10:45 → 6NMEDSUR 13:12
PROVIDERS: ADMIT Family Medicine; ATTEND Family Medicine
DX: J44.1 Chronic obstructive pulmonary disease with (acute) exacerbation (principal); I11.0 Hypertensive heart disease with heart failure; I50.9 Heart failure, unspecified; F17.210 Nicotine dependence, cigarettes, uncomplicated; E78.5 Hyperlipidemia, unspecified; N40.0 Benign prostatic hyperplasia without lower urinary tract symptoms; M10.9 Gout, unspecified; R06.82 Tachypnea, not elsewhere classified; D72.829 Elevated white blood cell count, unspecified; T38.0X5A Adverse effect of glucocorticoids and synthetic analogues, initial encounter; Z79.82 Long term (current) use of aspirin; Z79.51 Long term (current) use of inhaled steroids; Z79.899 Other long term (current) drug therapy; Z79.891 Long term (current) use of opiate analgesic; Z20.822 Contact with and (suspected) exposure to COVID-19; E66.9 Obesity, unspecified; Z68.32 Body mass index [BMI] 32.0-32.9, adult; Z82.49 Family history of ischemic heart disease and other diseases of the circulatory system
CPT/HCPCS: 96376 ×4; 96361 ×2; 96372 ×4; 96375; 96374; 99285; 36415; 94640 ×8; 94760; 93005; 83880; 80053; 80048; 80076; 82550; 82553; 83735; 84484; 85025 ×3; 85610; 83036; 84145; 87635; 71046; G0378 ×4; J1644 ×4; J2930 ×4

== ENCOUNTER → 2021-09-27 | Outpatient (CLI) | payer MEDICARE ==
[2021-09-27 14:50] LABS: Appearance,Urine Clear (Clear); Bilirubin,Urine Negative (Negative); Blood,Urine Negative (Negative); Color,Urine Yellow; Glucose,Urine (UA) Negative (Negative); Ketones,Urine Negative (Negative); Leukocyte Esterase,Urine Negative (Negative); Nitrite,Urine Negative (Negative); PH, Urine 5.5 (5.0-8.0); Protein,Urine Trace (Negative); Specific Gravity,Urine 1.029 (1.001-1.035); Urobilinogen,Urine <2.0 mg/dL (<2.0)
[2021-09-27 15:00] LABS: INR 0.9 (<1.2); Partial Thromboplastin Time 25.7 sec (22.0-30.0); Prothrombin Time 9.8 sec (9.0-12.0)
[2021-09-27 18:31] LABS: HCT 41.1 % (39.6-50.0); HGB 13.4 g/dL (13.0-17.0); MCH 32.4 pg (27.0-32.0); MCHC 32.6 g/dL (32.0-37.0); MCV 99.3 fL (80.0-97.0); Platelet Count 259 X 10*3/uL (140-440); RBC 4.14 X 10*6/uL (4.40-5.60); RDW 14.1 % (11.5-14.5); WBC 10.03 X 10*3/uL (4.50-10.00)
[2021-09-27 19:38] LABS: African American GFR (CKD) 91.9 (60.0-200.0); Albumin/Globulin Ratio 1.64 (1.60-3.17); Anion Gap 10.3 mmol/L (10.00-18.00); BUN/Creat Ratio 14.95 Ratio (12.00-20.00); Blood Urea Nitrogen 14.5 mg/dL (9.0-27.0); Calcium 8.7 mg/dL (8.7-10.3); Carbon Dioxide 25.2 mmol/L (20.0-27.5); Globulin 2.4 g/dL (1.6-3.3); Non-African American GFR(CKD) 79.3 (60.0-200.0); Potassium 4.2 mmol/L (3.5-5.5); Total Bilirubin 0.3 mg/dL (0.30-1.20); Total Protein 6.4 g/dL (6.2-8.2)
== END | disposition home or self-care (01) ==
LOC: LABPAT 13:09
PROVIDERS: ATTEND Orthopaedic Surgery Sports Medicine
DX: Z01.812 Encounter for preprocedural laboratory examination (principal)
CPT/HCPCS: 36415; 80053; 81003; 85027; 85610; 85730; 87070

== ENCOUNTER → 2021-09-29 | Outpatient (CLI) | payer MEDICARE ==
--- NOTE | 2021-10-02 07:46 | CT ---
EXAMINATION TYPE: CT shoulder RT wo con DATE OF EXAM: 09/29/2021 COMPARISON: None. HISTORY: Right shoulder pain. No injury. CT DLP: 507.1 mGycm Automated exposure control for dose reduction was used. FINDINGS: The acromioclavicular joint shows moderate to severe narrowing with mild to moderate inferior spurrin g frontal image 23 for reference. There is moderate to severe superior capsular hypertrophy with 3 to 4 mm ossific density consistent with intra-articular loose body possibly from old avulsion type frac ture. Fairly severe narrowing glenohumeral joint with subchondral cystic change involving the inferior port ion of the glenoid. There is large spur from the inferior medial aspect of the humeral head. Intra-ar ticular gas is present. Additional subchondral cystic change involving the superior medial aspect of the head coronal images 30 and 31 for reference. Normal glenoid version thought present. No significa nt joint effusion. Rotator cuff muscle bulk fairly well maintained. Long head of biceps not well-visualized. Visualized right lung is clear with mild emphysematous change superiorly. Incidental 3 to 4 mm right upper lobe nodule image 22. Visualized right ribs are intact. IMPRESSION: As above.
== END | disposition home or self-care (01) ==
LOC: RADCTMAIN 16:10
PROVIDERS: ATTEND Orthopaedic Surgery Sports Medicine
DX: M19.011 Primary osteoarthritis, right shoulder (principal)

== ENCOUNTER 2021-10-12 06:08 | Day surgery (SDC) | payer MEDICARE ==
[2021-10-10 09:35] VITALS: BMI 31.6
[~2021-10-12 06:08] MED LIST: ACETAMINOPHEN TAB 500 MG TAB PO PRN; DEXAMETHASONE SOD PHOSPHATE 4 MG/ML 1 ML VIAL IV ONE; GABAPENTIN 300 MG CAP PO PRN; LIDOCAINE 1% (10MG/ML) FOR IV START INTRADERMA PRN; MELOXICAM 7.5 MG TAB PO PRN; ONDANSETRON 4 MG/2 ML VIAL IVP ONE; ONDANSETRON 4 MG/2 ML VIAL IVP PRN; TRANEXAMIC ACID 1,000 MG in SODIUM CHLORIDE 0.9% 100 ML IVPB PRN
[2021-10-12] MEDS: LACTATED RINGERS 1,000 ML IV SCH ×4 (07:07→23:13)
[2021-10-12] MEDS ORDERED: MIDAZOLAM 2 MG/2 ML VIAL ONE (08:06)
[2021-10-12] MEDS ORDERED: PHENYLEPHRINE-0.9% NACL SYG 1,000 MCG/10 ML SYRINGE ONE (08:06)
[2021-10-12] MEDS ORDERED: TRANEXAMIC ACID 1,000 MG/10 ML VIAL ONE (08:06)
[2021-10-12] MEDS ORDERED: SUCCINYLCHOLINE CHLORIDE 100 MG/5 ML SYR IV ONE (08:06)
[2021-10-12] MEDS ORDERED: GLYCOPYRROLATE 0.2 MG/ML 2 ML VIAL ONE (08:06)
[2021-10-12] MEDS ORDERED: ROCURONIUM 10 MG/ML (5 ML VIAL) IV ONE (08:06)
[2021-10-12] MEDS ORDERED: PROPOFOL 10 MG/ML 20 ML VIAL IV ONE (08:06)
[2021-10-12] MEDS ORDERED: LIDOCAINE 1% INJ 10MG/ML (20 ML MDV) ONE (08:06)
[2021-10-12] MEDS ORDERED: fentaNYL (PF) 50 MCG/ML 2 ML AMP ONE (08:06)
[2021-10-12] MEDS ORDERED: HYDROmorphone (PF) 1 MG/ML ONE (08:06)
[2021-10-12] MEDS ORDERED: NEOSTIGMINE 1 MG/ML 10 ML VIAL ONE (08:06)
[2021-10-12] MEDS ORDERED: SODIUM CHLORIDE 0.9% 100 ML BAG ONE (08:06)
[2021-10-12] MEDS ORDERED: ceFAZolin 3,000 MG in SODIUM CHLORIDE 0.9% IRRIGATIO 3,000 ML IRRIGATION ONE (08:48)
[2021-10-12] MEDS ORDERED: VANCOMYCIN 1,000 MG VIAL MISCELLANE ONE (08:49)
[2021-10-12] MEDS ORDERED: LACTATED RINGERS 1,000 ML IV ONE (09:30)
[2021-10-12] MEDS ORDERED: TEMAZEPAM 15 MG CAP PO PRN (10:11)
[2021-10-12] MEDS ORDERED: HYDROmorphone 1 MG/ML 1 ML SYRINGE IVP PRN ×2 (10:11)
[2021-10-12] MEDS ORDERED: SENNOSIDES-DOCUSATE SODIUM 1 EACH TAB PO PRN (10:11)
[2021-10-12] MEDS ORDERED: diphenhydrAMINE 25 MG CAP PO PRN (10:11)
[2021-10-12] MEDS ORDERED: HYDROmorphone 0.2 MG/1 ML SYRINGE IVP PRN (10:11)
[2021-10-12] MEDS ORDERED: METOCLOPRAMIDE 5 MG/ML 2 ML VIAL IVP PRN (10:11)
[2021-10-12] MEDS ORDERED: ONDANSETRON 4 MG/2 ML VIAL IVP PRN (10:11)
[2021-10-12] MEDS ORDERED: oxyCODONE-APAP 7.5-325MG 1 EACH TAB PO PRN (10:15)
[2021-10-12] MEDS ORDERED: HYDROmorphone 0.5 MG/0.5 ML SYRINGE IVP ONE ×2 (10:19→10:31)
[2021-10-12] MEDS: HYDROmorphone 0.5 MG/0.5 ML SYRINGE IVP PRN ×2 (10:24→10:56)
[2021-10-12] MEDS: diphenhydrAMINE 50 MG/ML 1 ML VIAL IVP ONE ×2 (10:30→11:30)
[2021-10-12] MEDS ORDERED: ALBUTEROL NEBULIZED 2.5 MG/3 ML INHALATION ONE (10:41)
--- NOTE | 2021-10-12 11:09 | OP ---
OPERATIVE REPORT DATE OF PROCEDURE: 10/12/2021 SURGEON: Alexx Flower M.D. COOK HELPER JUICE: Leland Boyd PA-C PREOPERATIVE DIAGNOSIS: Right shoulder osteoarthrosis. POSTOPERATIVE DIAGNOSIS: Right shoulder osteoarthrosis. OPERATION: Right reverse total shoulder arthroplasty. ANESTHESIA: General endotracheal. ESTIMATED BLOOD LOSS: 100 mL. DRAINS: One deep drain. COMPLICATIONS: None apparent. DISPOSITION: Post-Anesthesia Care Unit. INDICATIONS: Mr. Toscano is a very pleasant 70-year-old gentleman with long-standing right shoulder pain. Workup including x-rays and CT scan revealed advanced osteoarthrosis of the right shoulder. At this point it is felt that he has failed conservative management. He would like to proceed with operative intervention. The risks of the procedure were discussed with him in detail. These risks include but are not limited to risk of infection, nerve damage, bleeding, pain, instability in the shoulder, loosening of the implants and deep infection. There is also a risk of deep vein thrombosis which could lead to fatal pulmonary embolism. The patient understood the risks. All of his questions with regard to the risks of the procedure were answered to his satisfaction. Appropriate informed consent was obtained. DESCRIPTION OF THE PROCEDURE: The patient was identified in the preoperative holding area. Surgical site was marked by both the patient and myself. He was given 2 grams of Ancef IV for prophylactic purposes. He was then transported to the operative suite. He was placed supine on the operating room table. General anesthetic was then administered and dosed per the anesthesia department without apparent complication. Examination under anesthesia of the right shoulder was then performed. He had elevation to 90 degrees. External rotation of the side was to 20 degrees. The patient was then placed into the beach chair position, well padded in preparation for surgery. Great care was taken to ensure that his cervical spine was in neutral alignment, well padded and maintained that way throughout the operative procedure. Great care was also taken to ensure that his legs were appropriately padded as well. The patient's right upper extremity was then prepped and draped in the usual sterile fashion. A standard surgical pause was undertaken to ensure that we were operating on the correct site and that appropriate preoperative antibiotics had been given. All staff were in agreement and we proceeded. The acromion, AC joint, clavicle and coracoid were marked with a surgical pen. A planned incision starting at the level of the clavicle and extending distally over the deltopectoral interval approximately 1 cm lateral to the coracoid was marked with a surgical pen. Incision was then made with a 10 blade scalpel. Dissection was carried down sharply to the deltoid fascia. The deltopectoral interval was then identified at the level of the clavicle. A small band retractor was then placed onto the proximal deltoid. I then released the deltoid fascia on the lateral aspect of the cephalic vein. The vein was preserved and left in its bed medially. The cephalic vein was also protected throughout the entire case. I then identified the clavipectoral fascia. This was incised proximally to the level of the coracoacromial ligament. The coracoacromial ligament was left intact. I then used my finger to spread the interval between the conjoint tendon and the subscapularis. I felt for the axillary nerve, which was readily palpable. I then cleared the subacromial and subdeltoid spaces of bursal and scar tissue. I then utilized a White retractor to hold the deltoid and expose the humeral head. I then proceeded with release of the subscapularis in the anterior inferior shoulder capsule. The rotator cuff was inspected. There was a small tear in the anterior aspect of the supraspinatus. The rotator interval was identified. The course of the biceps tendon was also identified. At this point did tenodese the biceps to the proximal pectoralis major tendon. This was done with 0 Vicryl interrupted sutures. I then released the rotator interval. This was released to the base of the coracoid and then out laterally. The subscapularis and capsule were then released intratendinously. The subscapularis and capsule release extended distally in a lazy-S fashion approximately 1 cm medial to the biceps tendon. I then continued to release the capsule along the inferior neck in a vertical fashion to approximately the 6 o'clock position. Great care was taken to ensure that the capsule was always visualized as it was released to avoid injuring the axillary nerve. I then brought a Garcia printer technician with the arm externally rotated and abducted. I continued to release the capsule inferomedially to the 4 o'clock position. The inferior osteophytes were now removed as well. This was done with a rongeur. I then proceeded with preparation of the humerus. I removed all the goat's ann osteophytes. I then removed the subchondral plate from the superior aspect of the humeral head using a large rongeur. I then used the starting reamer to gain access to the humeral canal. This was approximately 1 cm medial to the rotator cuff insertion and 1 cm posterior to the bicipital groove. I then prepared the humeral canal with hand reaming. I started with a 6 mm reamer and incrementally increased until firm resistance was encountered. This was at 14 mm. The reamer handle was then left in place. I then utilized a humeral resection guide set at 30 degrees of retrotorsion. The cutting block was then set at the insertion of the rotator cuff. I then proceeded to osteotomize the humeral head with an oscillating saw. I removed the resection guide and then completed the osteotomy. I then proceeded with trial stem placement. A trial size 14 stem was then broached in the canal starting with a small broach and then incrementally increasing up to the size 14 broach. The size 14 trial broach was then left in place. A bone hook was then utilized to pull the humerus out laterally. I inspected the joint for any loose bodies. The condition of the cuff was again inspected. He did have tearing of the anterior supraspinatus. In view of this in conjunction with the fact that he did have fairly significant cystic changes of the glenoid, I made a decision to proceed with a reverse total shoulder arthroplasty at this point. The Bhattman retractor was then placed at the posterior glenoid rim. The arm was placed in approximately 80 degrees of abduction and in slight flexion on the Garcia stand. I then proceeded to remove the hypertrophic labrum to definitively identify the actual glenoid. I then utilized the mini base plate starting guide and placed the starting pin in approximately 10 degrees of inferior tilt. This was placed in the center of the glenoid. I then proceeded to ream the glenoid fossa with the mini base plate reamer. As minimal reaming was done as possible so as to preserve as much subchondral bone as possible. I then placed the mini base plate and impacted it into place. The starting pin was then removed. I then placed a 35 mm central screw. This was tightened fully. It had very good purchase in bone. I was able to rotate the scapula through the screwdriver when the screw was fully seated. I then proceeded to place peripheral locking screws. The inferior screw was a 25 mm screw. The superior screw was a 20 mm screw. The anterior screw was a 15 mm screw. Due to the significant posterior cyst, I did not place a posterior screw. I then had the bilingual sales representative open a 36 mm standard glenosphere. It was offset slightly inferiorly. I then impacted the glenosphere onto a dry Michel taper of the mini base plate. I then proceeded to trial with the real glenosphere in place. I started with a standard tray standard poly. This reduced nicely. I then trialed with a +3 poly and a standard plate. This felt a little better. It was stable throughout a full range of motion. It was a fairly difficult reduction. There was not any undue tension on the conjoint tendon. There was no impingement throughout a full range of motion. The shoulder was then carefully redislocated. The trials were then removed. The wound was then thoroughly irrigated with sterile saline with antibiotic added. I had the bilingual sales representative open a size 14 mini Biomet stem, a standard tray and a +3 poly. The 14 mini stem was then impacted into the humeral canal in approximately 30 degrees of retrotorsion. The standard tray and poly were assembled on the back table. The standard tray was then impacted onto a dry Michel taper of the real stem. The shoulder was then reduced. Again it was a fairly difficult reduction. It was stable throughout a full range of motion. The conjoint tendon was of appropriate tension. There was no impingement noted. At this point I proceeded with closure. The wound was again thoroughly irrigated with sterile saline solution with antibiotic added. The subscapularis would have been a very tight repair; I did not repair the subscapularis as a result. Approximately 500 mg of vancomycin powder was then placed deep. A deep drain was also placed and brought out superiorly away from the incision. The deltopectoral interval was then reapproximated with 0 Vicryl interrupted sutures. The subcutaneous tissue was also again irrigated with sterile saline solution with antibiotic added via pulse lavage. The remaining 500 mg of vancomycin powder was then placed subcutaneously. The subcutaneous tissue was then closed with 2-0 Vicryl interrupted suture. The skin was then closed with a running 3-0 Quill suture. Dermabond was applied to the incision. Sterile compressive dressing was then applied. The patient's right upper extremity was placed into a standard sling. All sponge and needle counts were deemed correct prior to closure. The patient tolerated the procedure without apparent complication. He was transferred to the recovery room in stable condition. PEPE / DOLORESN: [id number] /
--- NOTE | 2021-10-12 11:15 | XR ---
EXAMINATION TYPE: XR shoulder limited RT DATE OF EXAM: 10/12/2021 COMPARISON: NONE HISTORY: 70-year-old male postoperative right shoulder, assess surgical alignment. TECHNIQUE: AP view FINDINGS: Image shows placement of reverse right total shoulder arthroplasty. Hemisphere and humeral stem compo nents of the prosthesis appear well seated. No periprosthetic fracture seen. Alignment appears approp riate. Mild degenerative change at the AC joint. Soft tissue air related to recent operation. A surgi yaritza drain is in place. IMPRESSION: Uncomplicated postoperative appearance reverse right total shoulder arthroplasty.
[2021-10-12] MEDS: fentaNYL (PF) 50 MCG/ML 2 ML AMP IVP ONE ×3 (11:19→12:16)
[2021-10-12] MEDS ORDERED: fentaNYL (PF) 50 MCG/ML 2 ML AMP IVP ONE (13:04)
[2021-10-12] MEDS ORDERED: ALBUTEROL NEBULIZED 2.5 MG/3 ML INHALATION PRN (16:30)
[2021-10-12] MEDS ORDERED: IPRATROPIUM 0.5 MG/2.5 ML NEBU INHALATION PRN (16:30)
[2021-10-12] MEDS ORDERED: METOPROLOL TARTRATE 25 MG TAB PO SCH (21:00)
[2021-10-12] MEDS ORDERED: TAMSULOSIN 0.4 MG CAP.ER.24H PO SCH (21:00)
[2021-10-12] MEDS ORDERED: VERAPAMIL SR 240 MG TABLET.ER PO SCH (21:00)
[2021-10-12] MEDS ORDERED: PRAVASTATIN SODIUM 20 MG TAB PO SCH (21:00)
[2021-10-12] MEDS: SYMBICORT 80-4.5 MCG INHALER INHALATION SCH (21:19)
[2021-10-12] MEDS: oxyCODONE-APAP 7.5-325MG 1 EACH TAB PO PRN (21:32)
[2021-10-12] MEDS: hydrOXYzine pamoate 25 MG CAP PO PRN (21:33)
[2021-10-13] MEDS: LACTATED RINGERS 1,000 ML IV SCH (00:49)
[2021-10-13] MEDS: oxyCODONE-APAP 7.5-325MG 1 EACH TAB PO PRN (02:33)
[2021-10-13] MEDS: hydrOXYzine pamoate 25 MG CAP PO PRN ×2 (02:34→10:57)
[2021-10-13 07:09] LABS: ALT 14 U/L (4-49); AST 28 U/L (17-59); African American GFR (CKD) 86 (>60 ml/min/1.73 sqM); Albumin 3.3 g/dL (3.5-5.0); Albumin/Globulin Ratio 1.3; Alkaline Phosphatase 73 U/L (38-126); Anion Gap 6 mmol/L; Blood Urea Nitrogen 19 mg/dL (9-20); Calcium 8.7 mg/dL (8.4-10.2); Carbon Dioxide 26 mmol/L (22-30); Chloride 105 mmol/L (98-107); Globulin 2.6 g/dL; Glucose 112 mg/dL (74-99); Non-African American GFR(CKD) 74 (>60 ml/min/1.73 sqM); Potassium 4.2 mmol/L (3.5-5.1); Sodium 137 mmol/L (137-145); Total Bilirubin 0.8 mg/dL (0.2-1.3); Total Protein 5.9 g/dL (6.3-8.2)
[2021-10-13 08:14] VITALS: RESP 17; TEMP 97.7
[2021-10-13] MEDS: SYMBICORT 80-4.5 MCG INHALER INHALATION SCH (09:08)
--- NOTE | 2021-10-13 09:16 | P.DS ---
Providers Expected date of discharge: 10/13/21 Attending physician: Alexx Flower Consults: 10/12/21 10:11 Consult Physician Routine Consulting Provider: Paul Davidson Consult Reason/Comments: post op medical management Do you want consulting provider notified?: Yes Primary care physician: Paul Davidson - Discharge Diagnosis(es) (1) Status post reverse total arthroplasty of right shoulder Patient was admitted to the OR on 10/12/21 to undergo a reverse right total shoulder arthroplasty. He had failed conservative measures as an outpatient and desired to proceed with elective surgery after given informed consent. He underwent the above procedure which she tolerated well without complication. Postoperative hospital course has remained without complication. On day of discharge he is afebrile, vital signs stable, labs within acceptable ranges, tolerating by mouth meds and diet, voiding without difficulty, positive flatus, denies abdominal pain or calf pain, pain is controlled on oral pain medication and has no new complaints. Wound is benign, neurovascular status is intact, calves are soft and nontender, abdomen soft and nontender. Review of systems is negative for numbness, tingling, fever, chills, chest pain, shortness of breath, nausea, vomiting, dizziness, headaches, slurred speech or other. Current Visit: Yes Status: Acute Priority: Medium Procedures: Right TSA Patient Condition at Discharge: Good Plan - Discharge Summary Discharge Rx Participant: Yes New Discharge Prescriptions: New Docusate [Colace] 100 mg PO BID #60 capsule Doxycycline Hyclate 100 mg PO BID #10 tab oxyCODONE-APAP 7.5-325MG [Percocet 7.5-325 mg] 1 tab PO Q4HR PRN #42 tab PRN Reason: Pain No Action Tamsulosin [Flomax] 0.4 mg PO HS Aspirin EC [Ecotrin] 325 mg PO HS Verapamil HCl [Verapamil ER] 240 mg PO HS Albuterol Nebulized [Ventolin Nebulized] 2.5 mg INHALATION RT-Q4H PRN PRN Reason: Shortness Of Breath Budesonide/Formoterol Fumarate [Symbicort 80-4.5 Mcg Inhaler] 2 puff INHALATION RT-BID Pravastatin Sodium [Pravachol] 20 mg PO HS HYDROcodone/APAP 10-325MG [[place] 10-325] 1 tab PO TID Tiotropium 18 Mcg/Puff [Spiriva] 1 puff INHALATION TID PRN PRN Reason: sob Metoprolol Tartrate [Lopressor] 25 mg PO HS Discharge Medication List Aspirin EC [Ecotrin] 325 mg PO HS 04/22/18 [History] Tamsulosin [Flomax] 0.4 mg PO HS 04/22/18 [History] Verapamil HCl [Verapamil ER] 240 mg PO HS 04/22/18 [History] Albuterol Nebulized [Ventolin Nebulized] 2.5 mg INHALATION RT-Q4H PRN 06/20/18 [History] Budesonide/Formoterol Fumarate [Symbicort 80-4.5 Mcg Inhaler] 2 puff INHALATION RT-BID 06/20/18 [History] Pravastatin Sodium [Pravachol] 20 mg PO HS 06/20/18 [History] HYDROcodone/APAP 10-325MG [[place] 10-325] 1 tab PO TID 11/26/20 [History] Tiotropium 18 Mcg/Puff [Spiriva] 1 puff INHALATION TID PRN 11/26/20 [History] Metoprolol Tartrate [Lopressor] 25 mg PO HS 10/10/21 [History] Docusate [Colace] 100 mg PO BID #60 capsule 10/13/21 [Rx] Doxycycline Hyclate 100 mg PO BID #10 tab 10/13/21 [Rx] oxyCODONE-APAP 7.5-325MG [Percocet 7.5-325 mg] 1 tab PO Q4HR PRN #42 tab 10/13/21 [Rx] Follow up Appointment(s)/Referral(s): Alexx Flower MD [STAFF PHYSICIAN] - 10 Days Activity/Diet/Wound Care/Special Instructions: Non Weight Bearing Maintain sling May shower after 3 days if no bleeding Keep wound clean and dry Take meds as directed F/U with Dr. Flower in office Discharge Disposition: HOME SELF-CARE
[2021-10-13 09:26] LABS: HCT 40.7 % (39.6-50.0); HGB 12.9 g/dL (13.0-17.0); MCH 31.2 pg (27.0-32.0); MCHC 31.7 g/dL (32.0-37.0); MCV 98.5 fL (80.0-97.0); Mean Platelet Volume 9.9 fL (9.5-12.2); NRBC Per 100 WBC 0 /100 WBCS (0.0-0.0); Platelet Count 259 X 10*3/uL (140-440); RBC 4.13 X 10*6/uL (4.40-5.60); RDW 14.3 % (11.5-14.5); WBC 14.74 X 10*3/uL (4.50-10.00)
[2021-10-13 11:56] VITALS: BP 165/83; PULSE 80
--- NOTE | 2021-10-13 12:23 | P.CONS ---
History of Present Illness - Reason for Consult Consult date: 10/13/21 medical management Requesting physician: Alexx Flower - Chief Complaint Right shoulder osteoarthritis - History of Present Illness Patient is a pleasant 70-year-old male admitted to Dr. Flower. Patient went to the OR for reverse total arthroplasty of right shoulder due to severe right shoulder osteoarthritis. Patient has pertinent medical history of COPD, hypertension, hyperlipidemia, current every day smoker. Surgery was tolerated well, no complications overnight. Patient was seen and examined at bedside. Denies chest pain, shortness of breath at rest and headache. States shoulder pain comes and goes but overall is doing well. Is requesting to go home. White count was elevated this morning after surgery, will recheck at follow up visit. Vital signs stable. Was up walking in the [place] without shortness of breath. Is medically cleared to be discharged home. Review of Systems Constitutional: Denies chills, Denies fever Ears, nose, mouth and throat: Denies hoarseness, Denies nasal discharge Cardiovascular: Reports dyspnea on exertion, Denies high blood pressure, Denies palpitations, Denies rapid heart beat, Denies syncope Respiratory: Reports dyspnea, Denies pain Gastrointestinal: Denies abdominal pain, Denies diarrhea Musculoskeletal: Reports limitation of motion, Denies muscle weakness Musculoskeletal: right: shoulder pain Integumentary: Denies change in hair/nails, Denies dryness, Denies lesions Neurological: Denies balance difficulties, Denies loss of vision, Denies weakness Psychiatric: Denies confusion, Denies disorientation, Denies memory loss Endocrine: Denies fatigue, Denies high blood sugars, Denies polyuria Hematologic/Lymphatic: Denies easy bruising Allergic/Immunologic: Denies anaphylaxis, Denies wheezing Past Medical History Past Medical History: COPD, Hyperlipidemia, Hypertension Additional Past Medical History / Comment(s): hx GOUT, cigarette smoking History of Any Multi-Drug Resistant Organisms: None Reported Past Surgical History: No Surgical Hx Reported Additional Past Surgical History / Comment(s): COLONOSCOPY Past Anesthesia/Blood Transfusion Reactions: No Reported Reaction Past Psychological History: No Psychological Hx Reported Smoking Status: Current every day smoker Past Alcohol Use History: None Reported Additional Past Alcohol Use History / Comment(s): STARTED SMOKING CIGARETTES AT AGE 16, SMOKES 1/2 PPD Past Drug Use History: None Reported - Past Family History Mother Family Medical History: No Reported History Father Family Medical History: No Reported History Additional Family Medical History / Comment(s): IN MVA 40 YEARS AGO Medications and Allergies Home Medications Medication Instructions Recorded Confirmed Type Aspirin EC [Ecotrin] 325 mg PO HS 04/22/18 10/12/21 History Tamsulosin [Flomax] 0.4 mg PO HS 04/22/18 10/12/21 History Verapamil HCl [Verapamil ER] 240 mg PO HS 04/22/18 10/12/21 History Albuterol Nebulized [Ventolin 2.5 mg INHALATION RT-Q4H PRN 06/20/18 10/12/21 His tory Nebulized] Budesonide/Formoterol Fumarate 2 puff INHALATION RT-BID 06/20/18 10/12/21 His tory [Symbicort 80-4.5 Mcg Inhaler] Pravastatin Sodium [Pravachol] 20 mg PO HS 06/20/18 10/12/21 History HYDROcodone/APAP 10-325MG [[place] 1 tab PO TID 11/26/20 10/12/21 History 10-325] Tiotropium 18 Mcg/Puff [Spiriva] 1 puff INHALATION TID PRN 11/26/20 10/12/21 History Metoprolol Tartrate [Lopressor] 25 mg PO HS 10/10/21 10/12/21 History Docusate [Colace] 100 mg PO BID #60 capsule 10/13/21 Rx Doxycycline Hyclate 100 mg PO BID #10 tab 10/13/21 Rx oxyCODONE-APAP 7.5-325MG [Percocet 1 tab PO Q4HR PRN #42 tab 10/13/21 Rx 7.5-325 mg] Allergies Allergy/AdvReac Type Severity Reaction Status Date / Time No Known Allergies Allergy Verified 10/12/21 06:42 Physical Exam Vitals: Vital Signs Temp Pulse Pulse Resp BP Pulse Ox 10/13/21 08:14 97.7 F 64 17 162/90 96 10/13/21 07:30 63 12 10/13/21 02:26 98.1 F 63 12 120/73 96 10/12/21 21:33 87 10/12/21 21:30 16 10/12/21 21:26 82 16 136/86 99 10/12/21 21:19 87 10/12/21 14:48 97.9 F 92 18 148/84 91 L 10/12/21 13:45 98.3 F 90 16 156/82 92 L 10/12/21 13:09 97.3 F L 89 20 149/73 96 10/12/21 13:08 89 20 1498/73 96 10/12/21 13:00 84 18 171/84 97 10/12/21 12:34 84 18 157/70 97 10/12/21 12:05 75 16 146/70 96 10/12/21 11:50 74 16 134/68 95 Intake and Output 10/12/21 10/13/21 10/13/21 22:59 06:59 14:59 Output Total 80 450 400 Balance -80 -450 -400 Output: Drainage 80 50 Right Shoulder 80 50 Urine 400 400 Other: # Voids 2 2 GENERAL: Alert, oriented 3 HEENT: Conjunctivae normal. eyes normal. NECK: No JVD. No thyroid enlargement. No LNs CARDIOVASCULAR: S1, S2 regular. No murmur RESPIRATION: Breath sounds diminished throughout. No rhonchi or crackles. No bronchial breathing. ABDOMEN: Soft, nontender . No guarding. no masses palpable. No ascites, No hepatosplenomegaly.Bowel sounds heard. LEGS: No edema. no swelling PSYCHIATRY: mood and affect normal. NERVOUS SYSTEM: Cranial N 2-12 grossly normal. Moves all 4 limbs. No focal deficits or weakness. Strength and sensation grossly intact.. Skin: no lesions, no rash Joints: Right arm in sling, tenderness Results CBC & Chem 7: 10/13/21 06:29 10/13/21 06:29 Labs: Abnormal Lab Results - Last 24 Hours (Table) 10/13/21 10/13/21 Range/Units 06:29 06:29 WBC 14.74 H (4.50-10.00) X 10*3/uL RBC 4.13 L (4.40-5.60) X 10*6/uL Hgb 12.9 L (13.0-17.0) g/dL MCV 98.5 H (80.0-97.0) fL MCHC 31.7 L (32.0-37.0) g/dL Glucose 112 H (74-99) mg/dL Total Protein 5.9 L (6.3-8.2) g/dL Albumin 3.3 L (3.5-5.0) g/dL Assessment and Plan Assessment: Right shoulder osteoarthritis Status post right reverse total shoulder arthroplasty Hypertension COPD without exacerbation Hyperlipidemia Current smoker Full code Plan: Continue following orthopedics recommendation post reverse total arthroplasty of right shoulder Percocet for pain management post shoulder surgery Continue current medication regimen, including hypertension medication Plan follow-up with primary care, recheck labs at office Discuss smoking cessation, will follow-up outpatient Time with Patient: Greater than 30
[2021-10-13 13:04] LABS: Basophils # (A) 0.02 X 10*3/uL (0.00-0.10); Basophils % (A) 0.1 %; Eosinophils # (A) 0.01 X 10*3/uL (0.04-0.35); Eosinophils % (A) 0.1 %; Immature Grans, Automated 0.4 %; Lymphocytes # (A) 1.66 X 10*3/uL (0.90-5.00); Lymphocytes % (A) 11.3 %; Monocytes # (A) 1.65 X 10*3/uL (0.20-1.00); Monocytes % (A) 11.2 %; Neutrophils # (A) 11.34 X 10*3/uL (1.80-7.70); Neutrophils % (A) 76.9 %
[2021-10-13 13:05] LABS: RBC Morphology NORMAL
== END 2021-10-13 12:22 | disposition home or self-care (01) ==
LOC: OR 06:08 → 4SSUR 13:32 → OR 10-13 12:22
PROVIDERS: ATTEND Orthopaedic Surgery Sports Medicine
DX: M19.011 Primary osteoarthritis, right shoulder (principal); Z20.822 Contact with and (suspected) exposure to COVID-19
CPT/HCPCS: 23472; 94640 ×2; 87635; 73020; C1776; J3370; J1200; J1100; J0690 ×2; J2405; J3010; J1170 ×2; 80053; 85025; 88300

== ENCOUNTER → 2021-12-29 | Outpatient (CLI) | payer MEDICARE ==
--- NOTE | 2021-12-29 09:11 | XR ---
EXAMINATION TYPE: XR chest 2V DATE OF EXAM: 12/29/2021 COMPARISON: Chest x-ray November 26, 2020 HISTORY: History of COPD with dyspnea and shortness of breath TECHNIQUE: Frontal and lateral views of the chest are obtained. FINDINGS: There is background chronic emphysematous change without suspicious focal air space opacit y, pleural effusion, or pneumothorax seen. The cardiac silhouette size is stable and upper limits of normal. Interval surgical change to the right shoulder is partially imaged. IMPRESSION: Chronic emphysematous changes without acute pulmonary process.
[2021-12-29 14:31] LABS: Basophils # (A) 0.02 X 10*3/uL (0.00-0.10); Basophils % (A) 0.2 %; Eosinophils # (A) 0.12 X 10*3/uL (0.04-0.35); Eosinophils % (A) 1.1 %; HCT 46.2 % (39.6-50.0); HGB 14.3 g/dL (13.0-17.0); Immature Grans, Automated 0.4 %; Lymphocytes # (A) 1.51 X 10*3/uL (0.90-5.00); Lymphocytes % (A) 13.6 %; Mean Platelet Volume 10.1 fL (9.5-12.2); Monocytes # (A) 0.96 X 10*3/uL (0.20-1.00); Monocytes % (A) 8.6 %; NRBC Per 100 WBC 0 /100 WBCS (0.0-0.0); Neutrophils # (A) 8.45 X 10*3/uL (1.80-7.70); Neutrophils % (A) 76.1 %; Platelet Count 318 X 10*3/uL (140-440); RBC 4.62 X 10*6/uL (4.40-5.60)
[2021-12-29 14:46] LABS: Albumin 3.9 g/dL (3.8-4.9); Albumin/Globulin Ratio 1.56 (1.60-3.17); Anion Gap 10.3 mmol/L (10.00-18.00); BUN/Creat Ratio 9.4 Ratio (12.00-20.00); Blood Urea Nitrogen 9.4 mg/dL (9.0-27.0); Calcium 8.7 mg/dL (8.7-10.3); Carbon Dioxide 25.7 mmol/L (20.0-27.5); Globulin 2.5 g/dL (1.6-3.3); Non-African American GFR(CKD) 75.9 (60.0-200.0); Potassium 4.4 mmol/L (3.5-5.5); Total Bilirubin 0.3 mg/dL (0.30-1.20); Total Protein 6.4 g/dL (6.2-8.2)
== END | disposition home or self-care (01) ==
LOC: LABWHC1 08:04
PROVIDERS: ATTEND Family Medicine
DX: R06.09 Other forms of dyspnea (principal)
CPT/HCPCS: 36415; 71046; 80053; 85025; 93005

== ENCOUNTER → 2022-05-11 | Outpatient (CLI) | payer MEDICARE ==
--- NOTE | 2022-05-11 22:13 | CT ---
EXAMINATION TYPE: CT chest wo con DATE OF EXAM: 05/11/2022 COMPARISON: Chest x-ray December 29, 2021 HISTORY: Solitary pulmonary nodule CT DLP: 425.9 mGycm. Automated Exposure Control for Dose Reduction was Utilized. TECHNIQUE: CT scan of the thorax is performed without IV contrast. FINDINGS: LUNGS: Mild to moderate underlying emphysematous changes are present. No suspicious greater than 5 mm noncalcified pulmonary nodules or masses. No suspicious focal consolidation or groundglass opacity. No pleural effusion or pneumothorax seen bilaterally. MEDIASTINUM: Lack of IV contrast is noted to limit evaluation for mediastinal and especially hilar ad enopathy. There are no definitive greater than 1 cm noncalcified mediastinal lymph nodes. Slightly en larged but calcified prevascular lymph node axial image 25. No cardiomegaly or pericardial effusion is seen. Moderate to severe three-vessel coronary artery calcification which is noted marker for unde rlying coronary artery disease. Enlarged right pulmonary artery axial image 30 consistent with underl jenn pulmonary artery hypertension. Ascending aortic aneurysm up to 4.6 cm axial image 29. Mild to mo derate calcified plaque of the aorta extends into branch vessels. Tiny focal aneurysm axial image 21 pass three-vessel takeoff. Somewhat small size thyroid. OTHER: Metallic hardware from right shoulder surgery causes streak artifact limiting evaluation of molina praclavicular level. Calcifications throughout the spleen consistent with product of both granulomato us disease. Intraluminal gallstones in contracted gallbladder axial image 71. IMPRESSION: 1. No suspicious pulmonary nodules or masses. Mild to moderate emphysematous change without acute pul monary process. Underlying pulmonary artery hypertension noted. 2. Ascending aortic aneurysm up to 4.6 cm. 3. Somewhat small size thyroid, correlate to exclude hypothyroidism.
== END | disposition home or self-care (01) ==
LOC: RADCTMAIN 16:19
PROVIDERS: ATTEND Family Medicine
DX: I71.2 Thoracic aortic aneurysm, without rupture (principal); J43.9 Emphysema, unspecified; I27.21 Secondary pulmonary arterial hypertension
CPT/HCPCS: 71250

== ENCOUNTER → 2022-05-23 | Outpatient (CLI) | payer MEDICARE ==
--- NOTE | 2022-05-24 14:18 | MR ---
EXAMINATION TYPE: MR Prostate wo/w con DATE OF EXAM: 05/23/2022 9:04 AM COMPARISON: None. CLINICAL INDICATION:Male, 71 years old with history of R97.20 Elevated PSA; TECHNIQUE: Multi-planar, multi-sequence imaging of the pelvis is performed prior to and following the uncomplicated administration of bolus intravenous gadolinium. CONTRAST: 11 Gadavist Interpretive Criteria: PI-RADS v2.1 SERUM PSA: 24.8 on 02/03/2021 SURGICAL PATHOLOGY: Negative biopsy 11/05/2021 FINDINGS: Prostatic dimensions: 5.5 x 3.9 x 6.1 cm. Ellipsoid Volume:67.26 (PSA density=0.37 ng/mL/mL) CENTRAL GLAND (Central and Transition Zones/CZ+TZ): Multiple bilateral, heterogenous appearing hypertrophic stromal nodules, without suspicious lesion. M edian lobe hypertrophy with protrusion into the base of the bladder. (PI-RADS 2) PERIPHERAL ZONE (PZ): Bilateral linear, indistinct wedgelike areas of low ADC, and low T2 signal, No evidence of masslike a bnormality, or localized perfusional hypervascularity, to further suggest a focus of clinically signi ficant prostate cancer. (PI-RADS 2) SEMINAL VESICLES (SV): Symmetric and unremarkable. PERIPROSTATIC TISSUES: Unremarkable. LYMPH NODES: No enlarged pelvic lymph node. REMAINING PELVIS: Bladder wall is within normal limits given distention. Trace free fluid within the pelvis. No pathologic bowel dilation or mural thickening. Scattered clonic diverticula are seen throughout the colon. OSSEOUS STRUCTURES: No suspicious osseous abnormality. IMPRESSION: 1. No specific features for high-risk prostate cancer. There are numerous circumscribed transition zo ne nodules and low-risk peripheral zone abnormalities (PI-RADS 2). 2. Moderate BPH, estimated gland volume 67 mL.
== END | disposition home or self-care (01) ==
LOC: RADMRIMAIN 08:05
PROVIDERS: ATTEND Urology
DX: R97.20 Elevated prostate specific antigen [PSA] (principal)
CPT/HCPCS: 72197; A9585

== ENCOUNTER 2023-03-26 15:43 | Emergency (ER) | payer MEDICARE ==
[2023-03-26 16:00] VITALS: TEMP 98.2
[2023-03-26] MEDS ORDERED: KETOROLAC 15 MG/ML 1 ML VIAL IVP STA (17:12)
[2023-03-26 17:57] LABS: Basophils % (A) 0 %; Eosinophils # (A) 0.3 k/uL (0-0.7); Eosinophils % (A) 1 %; HCT 46.5 % (39.0-53.0); HGB 15.4 gm/dL (13.0-17.5); Lymphocytes # (A) 1.6 k/uL (1.0-4.8); Lymphocytes % (A) 9 %; MCH 33.3 pg (25.0-35.0); MCHC 33.2 g/dL (31.0-37.0); MCV 100.2 fL (80.0-100.0); Macrocytosis Slight; Mean Platelet Volume 7.8; Monocytes # (A) 1.4 k/uL (0-1.0); Monocytes % (A) 8 %; Neutrophils # (A) 14.6 k/uL (1.3-7.7); Neutrophils % (A) 80 %; Platelet Count 240 k/uL (150-450); RBC 4.64 m/uL (4.30-5.90); RDW 14.8 % (11.5-15.5); WBC 18.1 k/uL (3.8-10.6)
--- NOTE | 2023-03-26 18:01 | ED ---
General Adult HPI - General Chief complaint: Chest Pain Stated complaint: Recheck Time Seen by Provider: 03/26/23 16:10 Source: patient, RN notes reviewed, old records reviewed Mode of arrival: ambulatory Limitations: no limitations - History of Present Illness Initial comments: This is a 72-year-old male presents emergency Department stating for about a week now he has pain in his ribs under his left breast. Patient states he thinks he might of hit it on his lawnmower handle doesn't really remember. Patient states he went and saw his primary medical care doctor today and the doctor palpated on him and agreed that it was more likely musculoskeletal but did request the patient to come to the emergency department to be evaluated and have blood drawn and cardiac enzymes drawn. Patient denies any difficulty breathing shortness of breath per patient denies any diaphoretic episodes. Patient denies any nausea or abdominal pain. Patient states he does smoke does have high blood pressure and high cholesterol. - Related Data Home Medications Medication Instructions Recorded Confirmed Aspirin EC [Ecotrin] 325 mg PO HS 04/22/18 11/02/22 Tamsulosin [Flomax] 0.4 mg PO HS 04/22/18 11/02/22 Verapamil HCl [Verapamil ER] 240 mg PO HS 04/22/18 11/02/22 Albuterol Nebulized [Ventolin 2.5 mg INHALATION RT-Q4H PRN 06/20/18 11/02/22 Nebulized] Budesonide/Formoterol Fumarate 2 puff INHALATION RT-BID 06/20/18 11/02/22 [Symbicort 80-4.5 Mcg Inhaler] Pravastatin Sodium [Pravachol] 20 mg PO HS 06/20/18 11/02/22 HYDROcodone/APAP 10-325MG [[place] 1 tab PO TID 11/26/20 11/02/22 10-325] Tiotropium 18 Mcg/Puff [Spiriva] 1 puff INHALATION TID PRN 11/26/20 11/02/22 Metoprolol Tartrate [Lopressor] 25 mg PO HS 10/10/21 11/02/22 Previous Rx's Medication Instructions Recorded Docusate [Colace] 100 mg PO BID #60 capsule 10/13/21 Allergies Allergy/AdvReac Type Severity Reaction Status Date / Time No Known Allergies Allergy Verified 03/26/23 16:00 Review of Systems ROS Statement: Those systems with pertinent positive or pertinent negative responses have been documented in the HPI. ROS Other: All systems not noted in ROS Statement are negative. Past Medical History Past Medical History: COPD, Hypertension Additional Past Medical History / Comment(s): hx GOUT, cigarette smoking History of Any Multi-Drug Resistant Organisms: None Reported Past Surgical History: No Surgical Hx Reported Additional Past Surgical History / Comment(s): COLONOSCOPY Past Anesthesia/Blood Transfusion Reactions: No Reported Reaction Past Psychological History: No Psychological Hx Reported Smoking Status: Current every day smoker Past Alcohol Use History: None Reported Past Drug Use History: None Reported - Past Family History Mother Family Medical History: No Reported History Father Family Medical History: No Reported History Additional Family Medical History / Comment(s): IN MVA 40 YEARS AGO General Exam - General Exam Comments Initial Comments: GENERAL: Patient is well-developed and well-nourished. Patient is nontoxic and well- hydrated and is in no acute distress. ENT: Neck is soft and supple. No significant lymphadenopathy is noted. Oropharynx is clear. Moist mucous membranes. Neck has full range of motion without eliciting any pain. EYES: The sclera were anicteric and conjunctiva were pink and moist. Extraocular movements were intact and pupils were equal round and reactive to light. Eyeli ds were unremarkable. PULMONARY: Unlabored respirations. Good breath sounds bilaterally. No audible rales rhonchi or wheezing was noted. CARDIOVASCULAR: There is a regular rate and rhythm without any murmurs gallops or rubs. Patient's chest pain is reproducible along the ribs just below the left breast. No rash redness or swelling in the area. ABDOMEN: Soft and nontender with normal bowel sounds. SKIN: Skin is clear with no lesions or rashes and otherwise unremarkable. NEUROLOGIC: Patient is alert and oriented x3. Cranial nerves II through XII are grossly intact. Motor and sensory are also intact. Normal speech, volume and content. Symmetrical smile. MUSCULOSKELETAL: Normal extremities with adequate strength and full range of motion. LYMPHATICS: No significant lymphadenopathy is noted PSYCHIATRIC: Normal psychiatric evaluation. Limitations: no limitations Course Vital Signs 03/26/23 03/26/23 03/26/23 15:58 17:31 18:04 Temperature 98.2 F Pulse Rate 97 76 82 Respiratory 18 18 17 Rate Blood Pressure 142/92 132/96 117/77 O2 Sat by Pulse 97 98 95 Oximetry Medical Decision Making - Medical Decision Making I interpreted EKG. EKG shows a sinus rhythm at 87 bpm SC interval is 170 QRS is 98 QT interval 337 QTC is 381. Patient's EKG shows no ST segment elevation or depression. Patient does have T-wave inversions in inferior leads Was pt. sent in by a medical professional or institution (, [place], [facility], urgent care, hospital, or custodial...) When possible be specific @ -Dr. Davidson sent the patient in Did you speak to anyone other than the patient for history (EMS, parent, family, police, friend...)? What history was obtained from this source @ -No Did you review nursing and triage notes (agree or disagree)? Why? @ -I reviewed and agree with nursing and triage notes Were old charts reviewed (outside hosp., previous admission, EMS record, old EKG, old radiological studies, urgent care reports/EKG's, custodial records)? Report findings @ -I reviewed prior lab work from prior radiological studies Differential Diagnosis (chest pain, altered mental status, abdominal pain women, abdominal pain men, vaginal bleeding, weakness, fever, dyspnea, syncope, headache, dizziness, GI bleed, back pain, seizure, CVA, palpatations, mental health, musculoskeletal)? @ -Differential Chest Pain: Stable Angina, Unstable Angina, STEMI, NSTEMI Aortic Dissection, Pneumothorax, Musculoskeletal, Esophageal Spasm GERD, Cholecystitis, Pancreatitis, Zoster, this is not meant to be an all-inclusive list. EKG interpreted by me (3pts min.). @ -As above X-rays interpreted by me (1pt min.). @ -Chest x-ray showed no acute abnormality CT interpreted by me (1pt min.). @ -None done U/S interpreted by me (1pt. min.). @ -None done What testing was considered but not performed or refused? (CT, X-rays, U/S, labs)? Why? @ -None What meds were considered but not given or refused? Why? @ -None Did you discuss the management of the patient with other professionals ( professionals i.e. , [facility], [facility], lab, RT, psych nurse, licensed social worker, raise miner, teacher, jail officer, classification case manager)? Give summary @ -No Was smoking cessation discussed for >3mins.? @ -No Was critical care preformed (if so, how long)? @ -No Were there social determinants of health that impacted care today? How? (Homelessness, low income, unemployed, alcoholism, drug addiction, transpo rtation, low edu. Level, literacy, decrease access to med. care, intermediate, rehab)? @ -No Was there de-escalation of care discussed even if they declined (Discuss DNR or withdrawal of care, Hospice)? DNR status @ -No What co-morbidities impacted this encounter? (DM, HTN, Smoking, COPD, CAD, Cancer, CVA, ARF, Chemo, Hep., AIDS, mental health diagnosis, sleep apnea, morbid obesity)? @ -None Was patient admitted / discharged? Hospital course, mention meds given and route, prescriptions, significant lab abnormalities, going to OR and other pertinent info. @ -Patient had an elevated white count however patient had no source of infection. Patient denied any abdominal pain patient with dysuria hematuria urinary frequency. Patient denied any abdominal pain. Patient denies any recent cough fever or sinus problems. Patient did state he got off 2 rounds of steroids 2 days ago. Patient also had elevated liver enzymes since he wasn't having problems she states she will call Dr. Davidson tomorrow and make an appointment to have follow-up Undiagnosed new problem with uncertain prognosis? @ -No Drug Therapy requiring intensive monitoring for toxicity (Heparin, Nitro, Insulin, Cardizem)? @ -No Were any procedures done? @ -No Diagnosis/symptom? @ -Transaminitis Acute, or Chronic, or Acute on Chronic? @ -Acute Uncomplicated (without systemic symptoms) or Complicated (systemic symptoms)? @ -Uncomplicated Side effects of treatment? @ -No Exacerbation, Progression, or Severe Exacerbation? @ -No Poses a threat to life or bodily function? How? (Chest pain, [place], [place], pneumonia, PE, COPD, DKA, ARF, appy, cholecystitis, CVA, Diverticulitis, Homicidal, Suicidal, threat to staff... and all critical care pts) @ -No Diagnosis/symptom? @ -Musculoskeletal chest pain Acute, or Chronic, or Acute on Chronic? @ -Acute Uncomplicated (without systemic symptoms) or Complicated (systemic symptoms)? @ -Complicated Side effects of treatment? @ -none Exacerbation, Progression, or Severe Exacerbation] @ -no Poses a threat to life or bodily function? @ -No Diagnosis/symptom? @ -Leukocytosis Acute, or Chronic, or Acute on Chronic? @ -Acute Uncomplicated (without systemic symptoms) or Complicated (systemic symptoms)? @ -Uncomplicated Side effects of treatment? @ -none Exacerbation, Progression, or Severe Exacerbation] @ -no Poses a threat to life or bodily function? @ -no - Lab Data Result diagrams: 03/26/23 17:34 03/26/23 17:34 Lab Results 03/26/23 03/26/23 03/26/23 Range/Units 17:34 17:34 17:34 WBC 18.1 H (3.8-10.6) k/uL RBC 4.64 (4.30-5.90) m/uL Hgb 15.4 (13.0-17.5) gm/dL Hct 46.5 (39.0-53.0) % MCV 100.2 H (80.0-100.0) fL MCH 33.3 (25.0-35.0) pg MCHC 33.2 (31.0-37.0) g/dL RDW 14.8 (11.5-15.5) % Plt Count 240 (150-450) k/uL MPV 7.8 Neutrophils % 80 % Lymphocytes % 9 % Monocytes % 8 % Eosinophils % 1 % Basophils % 0 % Neutrophils # 14.6 H (1.3-7.7) k/uL Lymphocytes # 1.6 (1.0-4.8) k/uL Monocytes # 1.4 H (0-1.0) k/uL Eosinophils # 0.3 (0-0.7) k/uL Basophils # 0.0 (0-0.2) k/uL Macrocytosis Slight Sodium 134 L (137-145) mmol/L Potassium 4.2 (3.5-5.1) mmol/L Chloride 102 (98-107) mmol/L Carbon Dioxide 31 H (22-30) mmol/L Anion Gap 1 mmol/L BUN 23 H (9-20) mg/dL Creatinine 1.15 (0.66-1.25) mg/dL Est GFR (CKD-EPI)AfAm 74 (>60 ml/min/1.73 sqM) Est GFR (CKD-EPI)NonAf 64 (>60 ml/min/1.73 sqM) Glucose 87 (74-99) mg/dL Calcium 8.4 (8.4-10.2) mg/dL Magnesium 1.7 (1.6-2.3) mg/dL Total Bilirubin 0.9 (0.2-1.3) mg/dL AST 132 H (17-59) U/L ALT 185 H (4-49) U/L Alkaline Phosphatase 348 H (38-126) U/L Troponin I <0.012 (0.000-0.034) ng/mL Total Protein 6.1 L (6.3-8.2) g/dL Albumin 3.3 L (3.5-5.0) g/dL Disposition Clinical Impression: Transaminitis, Leukocytosis, Musculoskeletal chest pain Disposition: HOME SELF-CARE Instructions (If sedation given, give patient instructions): Chest Pain (ED), Musculoskeletal Pain (ED) Is patient prescribed a controlled substance at d/c from ED?: No Referrals: Paul Davidson MD [Primary Care Provider] - 1-2 days Time of Disposition: 19:38
[2023-03-26 18:04] LABS: ALT 185 U/L (4-49); AST 132 U/L (17-59); African American GFR (CKD) 74 (>60 ml/min/1.73 sqM); Albumin 3.3 g/dL (3.5-5.0); Alkaline Phosphatase 348 U/L (38-126); Anion Gap 1 mmol/L; Blood Urea Nitrogen 23 mg/dL (9-20); Calcium 8.4 mg/dL (8.4-10.2); Carbon Dioxide 31 mmol/L (22-30); Chloride 102 mmol/L (98-107); Glucose 87 mg/dL (74-99); Magnesium 1.7 mg/dL (1.6-2.3); Non-African American GFR(CKD) 64 (>60 ml/min/1.73 sqM); Potassium 4.2 mmol/L (3.5-5.1); Sodium 134 mmol/L (137-145); Total Bilirubin 0.9 mg/dL (0.2-1.3); Total Protein 6.1 g/dL (6.3-8.2)
[2023-03-26 18:05] VITALS: BP 117/77; PULSE 82; RESP 17
--- NOTE | 2023-03-26 18:16 | XR ---
EXAMINATION TYPE: XR chest 2V DATE OF EXAM: 03/26/2023 COMPARISON: 12/29/21 HISTORY: Shortness of breath TECHNIQUE: Frontal and lateral views of the chest are obtained. FINDINGS: Scattered senescent parenchymal changes noted. Hyperinflation compatible with COPD. No evidence for infiltrate. No evidence for atelectasis. Heart size is stable. Mediastinal structures are stable and grossly unremarkable. No evidence for hilar prominence. Degenerative changes dorsal spine. IMPRESSION: 1. No evidence for acute pulmonary disease.
== END 2023-03-26 19:44 | disposition home or self-care (01) ==
LOC: EC 15:43
DX: D72.829 Elevated white blood cell count, unspecified (principal); R07.89 Other chest pain; R74.01 Elevation of levels of liver transaminase levels; J44.9 Chronic obstructive pulmonary disease, unspecified; I10 Essential (primary) hypertension; F17.200 Nicotine dependence, unspecified, uncomplicated; Z79.82 Long term (current) use of aspirin; Z79.51 Long term (current) use of inhaled steroids; Z79.899 Other long term (current) drug therapy
CPT/HCPCS: 36415; 93005; 80053; 83735; 84484; 85025; 71046; 99285; 96374; J1885

== ENCOUNTER → 2023-04-18 | Outpatient (CLI) | payer MEDICARE ==
[2023-04-18 15:14] LABS: African American GFR (CKD) 78 (>60 ml/min/1.73 sqM); Blood Urea Nitrogen 19 mg/dL (9-20); Non-African American GFR(CKD) 67 (>60 ml/min/1.73 sqM)
--- NOTE | 2023-04-19 09:50 | CT ---
EXAMINATION TYPE: CT chest abdomen w con CT DLP: 1552.0 mGycm, Automated exposure control for dose reduction was used. DATE OF EXAM: 04/18/2023 4:58 PM COMPARISON: CT chest 05/11/2022 CLINICAL INDICATION:Male, 72 years old with history of I71.20 THORACIC AORTIC ANEURYSM, WITHOUT RUPTU RE,; PHH, Thoracic aortic aneurysm without rupture. Possible fractured ribs on left side. Technique: Multiple axial images of the chest and abdomen were obtained. Two-dimensional coronal and sagittal reconstructions were obtained. Contrast used:100 ml mL of Isovue 300 with IV Contrast, Oral contrast used: with Oral Contrast Findings: CHEST: LUNGS/ PLEURA: Right upper lobe 3 mm pulmonary nodule series 3 image 30 is stable from prior. Left lower lobe 5 mm pulmonary nodule series 3 image 61. Stable right lower lobe posterior opacity co mpared to prior. AIRWAY: Patent and unremarkable. Layering secretions within the airway. HEART: Size within normal limits. There is moderate to severe coronary artery calcifications. MEDIASTINUM: No gross evidence of adenopathy. VASCULATURE: Standing thoracic aorta ectasia up to 43 x 45 mm similar prior. No evidence for aneurysm . The descending thoracic aorta is without evidence for aneurysm. No evidence for intimal flap to sug gest dissection. There is atherosclerosis of the arterial vasculature the major vessels of the aortic arch are patent. MUSCULOSKELETAL: No acute osseous abnormalities. Right shoulder arthroplasty changes with hardware in tact. SOFT TISSUES/LYMPH NODES: Unremarkable. LOWER NECK: No significant findings. ABDOMEN: ABDOMEN LIVER: Nodular border. There is at least 10 hypodense nodular border seen throughout the liver the la rgest near the dome measuring 21 mm and in the left hepatic lobe measuring 16 mm. GALLBLADDER AND BILE DUCTS: Gallstone in the gallbladder neck. PANCREAS: Unremarkable. SPLEEN: Scattered calcified granulomas. ADRENAL GLANDS: Unremarkable. KIDNEYS AND URETERS: No evidence of hydronephrosis or renal calculus. The ureters are unremarkable. Nonobstructing 9 mm calculus on the left. No right renal calculi. No hydronephrosis. STOMACH AND BOWEL: No evidence of bowel obstruction. PERITONEUM: No evidence of pneumoperitoneum or free fluid. VASCULATURE: No evidence of aortic aneurysm. MUSCULOSKELETAL: No acute osseous abnormalities LYMPH NODES: No gross evidence for lymphadenopathy. SOFT TISSUE/ABDOMINAL WALL: Unremarkable IMPRESSION: 1. Ascending thoracic aorta ectasia up to 45 mm. No evidence for aortic aneurysm. 2. Hepatic cirrhosis with at least 10 scattered hypodense observations. Further evaluation of the li jhon with MRI is recommended to rule out hepatocellular carcinoma. 3. Cholelithiasis in the gallbladder neck. 4. Left nonobstructing 9 mm calculus. 5. Cervical chronic granulomatous disease involving the spleen. 6. There is moderate to severe coronary artery calcifications. 7. Lower lobe pulmonary nodule follow-up CT in 6-12 months to ensure stability.
== END | disposition home or self-care (01) ==
LOC: RADCTMAIN 14:39
PROVIDERS: ATTEND Family Medicine
DX: I25.10 Atherosclerotic heart disease of native coronary artery without angina pectoris (principal); I71.20 Thoracic aortic aneurysm, without rupture, unspecified; K74.60 Unspecified cirrhosis of liver; K80.20 Calculus of gallbladder without cholecystitis without obstruction; N20.0 Calculus of kidney; D71 Functional disorders of polymorphonuclear neutrophils; R91.1 Solitary pulmonary nodule
CPT/HCPCS: 82565; 84520; 71260; 74160; 36415; Q9967